=== PATIENT | female | born 1970 | race Caucasian/White ===

== ENCOUNTER → 2020-01-29 14:11 | Outpatient (BNVA) | payer OTHER, SELFPAY | PROVIDERS: PCP Family Medicine; Referring Provider Family Medicine; Visit Provider Internal Medicine Gastroenterology | DX: Z76.89 Persons encountering health services in other specified circumstances (principal) ==

== ENCOUNTER 2020-02-27 | Outpatient (REF) | payer OTHER, SELFPAY ==
[2020-02-28 12:25] LABS: Creatinine Urine 77.36 mg/dL; Microalbumin Urine < 5.0 mg/L
== END 2020-02-27 00:01 | disposition home or self-care (01) ==
LOC: HO.WFDLNP
PROVIDERS: Visit Provider Family Medicine
DX: F31.9 Bipolar disorder, unspecified (principal)
CPT/HCPCS: 82043

== ENCOUNTER 2020-04-09 10:31 | Day surgery (SDC) | payer OTHER, SELFPAY ==
--- NOTE | 2020-04-08 12:40 | HO.ANESPROP2 ---
Documented by User: Lorin Case 04/08/20 12:41 HPI - Anesthesia Eval Consult details Narrative: 49yo F for Colonoscopy PMFSH Past Medical History Medical History Diabetes 1.5, managed as type 2 Hx of coronary angiogram IBS (irritable colon syndrome) SILKE (obstructive sleep apnea) Screening for colon cancer Family History Family History Father HTN (hypertension) CVD (cardiovascular disease) Mother Hypercholesteremia Cancer Brother No problems noted. Surgical History Surgical History Hx of colonoscopy Hx of dilation and curettage Hx of tonsillectomy Hx of wisdom tooth extraction Social History Social History Alcohol intake: never Smoking Status: Never smoker Use of substances other than those prescribed or required for medical reasons: No Have you been hit, kicked, punched, or otherwise hurt by someone within the past year? If so, by whom?: No Advance Directives: No Advance Directives Information Provided: Yes Meds Allergies Allergy/AdvReac Type Severity Reaction Status Date / Time lactose [LACTOSE] AdvReac Intermediate GI DISTRESS Verified 04/09/20 10:57 codeine [CODEINE] AdvReac Mild NAUSEA, Verified 04/09/20 10:57 nausea and vomiting Home Medications Medication Instructions Recorded Confirmed Type cholecalciferol (vitamin D3) 50 50 mcg PO DAILY 01/06/20 01/29/20 History mcg (2,000 unit) tablet ergocalciferol (vitamin D2) 1,250 1,250 mcg PO QWEEK 01/06/20 01/06/20 History mcg (50,000 unit) capsule hydrochlorothiazide 25 mg tablet 25 mg PO QAM 01/06/20 01/29/20 History lisinopril 2.5 mg tablet 2.5 mg PO DAILY 01/06/20 01/29/20 History metformin 500 mg tablet 500 mg PO BID 01/06/20 01/29/20 History pioglitazone 30 mg tablet 30 mg PO DAILY 01/06/20 01/29/20 History simvastatin 20 mg tablet 20 mg PO BEDTIME 01/06/20 01/29/20 History flu vac qv 2019(18yr up)rc(PF) ml IM 02/27/20 History Exam Exam Date and Time: April 08, 2020 1240 Assessment and Plan Assessment Anesthesia Assessment: Chart Reviewed Documented by User: Hiwot Yanes 04/09/20 11:28 PMFSH Past Medical History Medical History Diabetes 1.5, managed as type 2 Hx of coronary angiogram IBS (irritable colon syndrome) SILKE (obstructive sleep apnea) Screening for colon cancer Family History Family History Father HTN (hypertension) CVD (cardiovascular disease) Mother Hypercholesteremia Cancer Brother No problems noted. Surgical History Surgical History Hx of colonoscopy Hx of dilation and curettage Hx of tonsillectomy Hx of wisdom tooth extraction Social History Social History Alcohol intake: never Smoking Status: Never smoker Use of substances other than those prescribed or required for medical reasons: No Have you been hit, kicked, punched, or otherwise hurt by someone within the past year? If so, by whom?: No Advance Directives: No Advance Directives Information Provided: Yes Meds Allergies Allergy/AdvReac Type Severity Reaction Status Date / Time lactose [LACTOSE] AdvReac Intermediate GI DISTRESS Verified 04/09/20 10:57 codeine [CODEINE] AdvReac Mild NAUSEA, Verified 04/09/20 10:57 nausea and vomiting Home Medications Medication Instructions Recorded Confirmed Type cholecalciferol (vitamin D3) 50 50 mcg PO DAILY 01/06/20 01/29/20 History mcg (2,000 unit) tablet ergocalciferol (vitamin D2) 1,250 1,250 mcg PO QWEEK 01/06/20 01/06/20 History mcg (50,000 unit) capsule hydrochlorothiazide 25 mg tablet 25 mg PO QAM 01/06/20 01/29/20 History lisinopril 2.5 mg tablet 2.5 mg PO DAILY 01/06/20 01/29/20 History metformin 500 mg tablet 500 mg PO BID 01/06/20 01/29/20 History pioglitazone 30 mg tablet 30 mg PO DAILY 01/06/20 01/29/20 History simvastatin 20 mg tablet 20 mg PO BEDTIME 01/06/20 01/29/20 History flu vac qv 2019(18yr up)rc(PF) ml IM 02/27/20 History Exam Height,Weight and Vital Signs: Vital Signs Temp Pulse Resp BP Pulse Ox 04/09/20 10:51 97 F 86 18 121/78 97 Pertinent Lab Results Pertinent Lab Results: Lab Results 04/09/20 Range/Units 10:52 POC Glucose 141 H (60-115) mg/dL Airway Mallampati Class: II TM Dist: >3cm Neck ROM: Full Loose/Missing/Broken Teeth: No Heart: RRR Lungs: CTAB Assessment and Plan Assessment Anesthesia Assessment: Anesthesia Plan Discussed and Chart Reviewed Final Anesthetic Review NPO: Yes ASA Class: III Final Preanesthetic Review: No Changes in Pt Med Stat, Meds/Allgs Chart Reviewed, Consent Obtained/Reviewed and Anes Risks/Benef Reviewed Patient Risk: Intermediate Procedure Risk: Low Assessment/Block/Sedation in SS: Assess/Block/Sedation-SS Anesthetic Plan Anesthetic Plan: MAC: Disposition: Standard PACU
[2020-04-09 10:51] VITALS: BP 121/78; PULSE 86; RESP 18; TEMP 36.1; O2SAT 97; BMI 37.1
[2020-04-09 10:56] LABS: Glucose, Whole Blood 141 mg/dL (60-115)
[2020-04-09] MEDS: Lactated Ringers 1,000 ML 100 ML IVCONT (11:07)
--- NOTE | 2020-04-09 11:34 | W.PM.OPN ---
Operative Note Operative Note Date of Service: 04/09/20 Narrative: Pre-op diagnosis: Colon cancer screening, IBS with intermittent diarrhea Post-op diagnosis: other (diverticulosis, hemorrhoids) Procedure: COLONOSCOPY TO CECUM WITH RANDOM BIOPSIES Consent: Indications for the procedure and potential complications of bleeding, perforation, reaction to medications and missed diagnosis were discussed with the patient and informed consent was obtained. Instrument: Olympus PCF H 190 L variable stiffness pediatric colonoscope Monitoring: Vital signs and clinical assessment, intermittent blood pressure monitoring, continuous EKG monitoring, Pulse oximetry and Carbon Dioxide monitoring were done throughout the procedure. Colon withdrawl time was 18 minutes. Procedure: The patient was placed in the left lateral decubitis position and pre-procedure medications were administered. After a digital rectal examination of the ano-rectum, the video colonoscope was inserted into the rectum and advanced through the colon to the cecum. The colonoscope was slowly withdrawn in a retrograde panoramic fashion and the colon mucosa was carefully examined including a retroflexed view of the rectum. Findings and interventions are described below. Procedure Difficulty: Without difficulty Findings: Terminal Ileum: Not evaluated - attempts to intubate the TI were unsuccessful Cecum: Normal Ascending Colon: Normal Transverse Colon: Normal Descending Colon: Normal Sigmoid Colon: Moderate diverticulosis Rectum: Normal Ano-rectum: Moderate internal hemorrhoids Colon preparation: Good Impression and Post Procedure Diagnosis: Colonoscopy Findings: No polyps were detected. Random biopsies were obtained from the colon. Moderate diverticulosis seen in the sigmoid colon Moderate hemorrhoids on retroflexed exam. Plan: Await pathology results Patient has an appointment on 04/17/20 in the GI Clinic with Tri Wright M.D.. Repeat Colonoscopy interval based on path results - in 3-5 years if polyps are adenomatous and 10 years if polyps are hyperplastic. 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 Right colon, left colon ) Condition: stable Disposition: PACU
--- NOTE | 2020-04-09 11:34 | MHC.SHP ---
Pre-Procedural Eval Section B Chief Complaint: Screening Details of Present Illness: Colon cancer screening, IBS with intermittent diarrhea FH of colon polyps (brother) Relevant Family History (Specify if Yes): Yes Relevant Social History: None Present Medications: see Short Stay Collaborative assessment Medical History: Significant History (Diabetes 1.5, managed as type 2 Hx of coronary angiogram IBS (irritable colon syndrome) SILKE (obstructive sleep apnea) Screening for colon cancer) History of Previous Operations: Relevant previous surgery/procedure and date(s) (Hx of colonoscopy Hx of dilation and curettage Hx of tonsillectomy Hx of wisdom tooth extraction) Allergies: Allergies Allergy/AdvReac Type Severity Reaction Status Date / Time lactose [LACTOSE] AdvReac Intermediate GI DISTRESS Verified 04/09/20 10:57 codeine [CODEINE] AdvReac Mild NAUSEA, Verified 04/09/20 10:57 nausea and vomiting Review of Systems Sugical H&P ROS: Negative: Constitution, Cardiovascular and Respiratory and Yes, Specify: Gastrointestinal (Intermittent diarrhea) Exam Surgical H&P Exam: Normal: Heart, Normal: Lungs, Normal: Extremities and Normal: Abdomen Plan Diagnosis/Plan: Unchanged I have reviewed the history and physical and performed a pertinent physical examination on my patient. No changes have occurred unless specified.
[2020-04-09 12:24] VITALS: BP 120/70; PULSE 88; RESP 16; TEMP 36.2; O2SAT 98
[2020-04-09 12:42] VITALS: BP 129/82; PULSE 77; RESP 16; TEMP 36.2; O2SAT 99
--- NOTE | 2020-04-09 13:24 | HO.POSTANES ---
Post Anesthesia Evaluation Post Anesthesia Evaluation Vital Signs: Vital Signs Temp Pulse Resp BP Pulse Ox 04/09/20 12:42 97.1 F 77 16 129/82 99 04/09/20 12:24 97.1 F 88 16 120/70 98 04/09/20 10:51 97 F 86 18 121/78 97 Anesthesia: Monitored Mental Status: Awake Pain Control: Satisfactory Nausea/Vomiting: None Hydration: Adequate Anesthesia-Related Issues: No Anes. Related Issues
== END 2020-04-09 13:27 | disposition home or self-care (01) ==
PROVIDERS: PCP Family Medicine; Visit Provider Internal Medicine Gastroenterology
PROC: 0DJD8ZZ Inspection of Lower Intestinal Tract, Via Natural or Artificial Opening Endoscopic (ICD-10-PCS; CPT 45378; principal; 2020-04-09 10:50)
DX: Z12.11 Encounter for screening for malignant neoplasm of colon (principal); Z83.71 Family history of colonic polyps; K57.30 Diverticulosis of large intestine without perforation or abscess without bleeding; K64.8 Other hemorrhoids; K58.0 Irritable bowel syndrome with diarrhea; E13.9 Other specified diabetes mellitus without complications; G47.33 Obstructive sleep apnea (adult) (pediatric); J45.909 Unspecified asthma, uncomplicated; Z79.84 Long term (current) use of oral hypoglycemic drugs; Z88.8 Allergy status to other drugs, medicaments and biological substances
CPT/HCPCS: 45380; 82947; 88305

== ENCOUNTER 2020-05-29 | Outpatient (REF) | payer OTHER, SELFPAY ==
[2020-05-30 14:38] LABS: Creatinine Urine 112.22 mg/dL; Microalbum/Creatinine Ratio Ur 4.4 ug/mg cr
== END 2020-05-29 00:01 | disposition home or self-care (01) ==
LOC: HO.LNP
PROVIDERS: Visit Provider Family Medicine
DX: Z00.00 Encounter for general adult medical examination without abnormal findings (principal); E13.9 Other specified diabetes mellitus without complications; Z11.59 Encounter for screening for other viral diseases; Z13.29 Encounter for screening for other suspected endocrine disorder; M54.9 Dorsalgia, unspecified
CPT/HCPCS: 82043

== ENCOUNTER 2020-05-29 13:21 | Outpatient (REF) | payer OTHER, SELFPAY ==
[2020-05-30 04:36] LABS: HBS Num1 272.91 mIU/mL (0-7.99); HBc Num1 0.08 S/CO (0.00-0.79); Hepatitis B Core Antibody Nonreactive (Nonreactive); ~HepC Num1 0.15 S/CO (0.00-0.79); ~Hepatitis B Surface Antibody REACTIVE (Nonreactive); ~Hepatitis C Antibody Nonreactive (Nonreactive)
[2020-05-30 04:39] LABS: HBsAGNum1 0.16 S/CO (0.00-0.99); Hepatitis B Surface Antigen Negative (Negative)
== END 2020-05-29 13:22 | disposition home or self-care (01) ==
LOC: HO.HMGCLDS 13:21
PROVIDERS: PCP Family Medicine; Visit Provider Family Medicine
DX: Z00.00 Encounter for general adult medical examination without abnormal findings (principal); E13.9 Other specified diabetes mellitus without complications; Z11.59 Encounter for screening for other viral diseases; Z13.220 Encounter for screening for lipoid disorders; Z13.29 Encounter for screening for other suspected endocrine disorder; M54.9 Dorsalgia, unspecified
CPT/HCPCS: 36415; 86704; 86706; 86803; 87340

== ENCOUNTER 2020-07-22 13:54 | Outpatient (REF) | payer OTHER, SELFPAY ==
--- NOTE | ~2020-07-22 | US_ITS ---
EXAMINATION: US ABDOMEN COMPLETE CLINICAL INFORMATION: Right upper quadrant pain. COMPARISON: None TECHNIQUE: Real-time imaging of the abdominal viscera. FINDINGS: PANCREAS: Normal. ABDOMINAL AORTA: The proximal, mid, and distal segments are normal in caliber. INFERIOR VENA CAVA: Visualized portions are normal. LIVER: The liver is normal in size. The liver contour is normal. There is increased liver echogenicity seen. No focal hepatic lesion. There is no intrahepatic biliary duct dilatation seen. GALLBLADDER: Normal. The gallbladder is physiologically distended without evidence of stones, sludge, polyps, wall thickening or pericholecystic fluid. COMMON BILE DUCT: Normal in caliber measuring 0.27 cm in diameter. RIGHT KIDNEY: Normal. No hydronephrosis. No renal calculi or focal parenchymal lesions. The kidney measures 11.9 cm in maximum dimension. LEFT KIDNEY: Normal. No hydronephrosis. No renal calculi or focal parenchymal lesions. The kidney measures 11.4 cm in maximum dimension. SPLEEN: Normal. The spleen measures 11.2 cm in maximum dimension. FREE FLUID: None. US/US abdomen complete IMPRESSION: Diffuse hepatic steatosis without any focal lesion. The rest of the abdominal ultrasound is unremarkable.
[2020-07-22 16:19] LABS: MANUAL DIFF FLAG NO
[2020-07-22 16:25] LABS: Basophils Percent Auto 0.3 % (0-2); Eosinophils Absolute Auto 0.2 X10*3/uL (0.0-0.4); Eosinophils Percent Auto 2.8 % (0-4); Hematocrit 40.3 % (37-47); Imm Gran Abs Auto 0.01 X10*3/uL (0.00-0.03); Imm Gran Pct Auto 0.2 % (0.0-0.4); Lymphocytes Absolute Auto 1.9 X10*3/uL (1.2-4.9); Mean Corpuscular HGB Conc 32.3 g/dl (31.0-35.0); Mean Corpuscular Hemoglobin 28.8 pg (27.0-33.0); Mean Corpuscular Volume 89.4 fL (80-98); Mean Platelet Volume 12.1 fL (9.4-12.3); Monocytes Absolute Auto 0.4 X10*3/uL (0.1-1.2); Monocytes Percent Auto 5.8 % (2-11); Neutrophils Percent Auto 61.9 % (45-73); Platelet Count 199 X10*3/uL (160-400); Red Blood Count 4.51 X10*6/uL (4.20-5.50); White Blood Count 6.4 X10*3/uL (4.8-10.8)
[2020-07-22 16:39] LABS: Glucose Urine UA NEG (NEG); Leukocyte Esterase Urine NEG (NEG); Nitrite Urine NEG (NEG); PH 7.5 (5.0-8.0); Urine Blood NEG (NEG); Urine Ketones NEG (NEG); Urine Protein NEG (NEG-TRACE)
[2020-07-22 16:44] LABS: Appearance Urine CLEAR; Color Urine YELLOW
[2020-07-22 16:52] LABS: Alanine Aminotransferase 20 U/L (0-31); Albumin Level 4.4 g/dL (3.5-5.0); Alkaline Phosphatase 73 U/L (39-117); Anion Gap 13 (12-20); Aspartate Amino Transferase 19 U/L (5-31); Bilirubin Total 0.8 mg/dL (0.0-1.0); Blood Urea Nitrogen 10 mg/dL (9-16); Calcium 9.2 mg/dL (8.4-10.2); Carbon Dioxide 30 mmol/L (22-29); Chloride 99 mmol/L (96-108); Estimated Glomerular Filt Rate > 60; Glucose Random 109 mg/dL (60-115); Potassium 3.8 mmol/L (3.3-5.1); Sodium 138 mmol/L (135-145); Total Protein 6.9 g/dL (6.5-8.0)
== END 2020-07-22 13:55 | disposition home or self-care (01) ==
LOC: HO.HMGCX 13:54
PROVIDERS: PCP Family Medicine; Visit Provider Family Medicine
DX: Z00.00 Encounter for general adult medical examination without abnormal findings (principal); R10.11 Right upper quadrant pain
CPT/HCPCS: 36415; 76700; 80053; 81003; 85025

== ENCOUNTER 2020-08-22 11:00 | Outpatient (RCR) | payer OTHER, SELFPAY ==
--- NOTE | 2020-07-05 09:52 | MHC.PT.EP ---
[facility] [place] Office [place] Office [place] Office [address] Erika Kamraa [address] [phone] F: [phone] F: [phone] F: [phone] F: [phone] Physical Therapy Plan of Care Date of Evaluation: 07/04/20 Date of Surgery: Diagnosis: acute mid-back pain. Assessment: Pt is a 50 y/o female referred to PT for eval and treat of acute mid-back pain who presents with signs and Sx consistent with thoracic dysfunction resulting in decreased tolerance for sitting for duration, performing desk/ computer work for duration, walking long distances, as well as performing HH chores secondary to decreased T spine posture, T spine hypomobility, increased L/ T spine tissue tension, decreased core strength, and pain. Pt is deemed an appropriate candidate to receive skilled PT in order to address her physical limitations to improve her functional ability. Frequency and Duration: The patient will be seen 2 x / wk x 4 weeks Short Term Goals: in 1 week: initiate HEP with evidence of compliance. In 2 weeks: improve baseline pain with activity to < 4/10, initial 6/10. Handbag Finisher Goals: In 4 weeks: I with home program. In 4 weeks: Pt will report able to perform desk/ computer work > 2 hours with managed Sx. Treatment Plan: Modalities to reduce pain, spasms and effusion. Manual therapy to restore motion and function. Therapeutic exercise to improve strength and flexibility. Neuromuscular re-education for posture and balance. Therapeutic activities to return to functional activities of daily living. Electronically signed by: Tyrell Rodriguez PT. Please sign and return to therapist. Thank you for your referral.
--- NOTE | 2020-08-22 12:41 | MHC.PT.DC ---
[facility] [place] Office [place] Office [place] Office [address] Alfreda Kamara [address] [phone] F: [phone] F: [phone] F: [phone] F: [phone] Physical Therapy Discharge Report Diagnosis: acute mid-back pain. Date of Surgery: Date of Evaluation: 07/04/20 Date of Discharge: Treatments to Date: 10 Cancellations to Date: 0 No Shows to Date: 0 Discharge Status: Achieved Goals Improved Function Independent with HEP Discharge Summary: Noa has been an active participant in her therapy in and out of the clinic, she has met all of her therapeutic goals, is improved of her ontiveros and functions and is in agreement with DC at this time. Electronically signed by: Tyrell Rodriguez PT. Please sign and return to therapist. Thank you for your referral.
== END 2020-08-22 12:46 | disposition home or self-care (01) ==
LOC: HO.PTCHIC 11:00
PROVIDERS: PCP Family Medicine; Visit Provider Family Medicine
DX: M54.9 Dorsalgia, unspecified (principal)
CPT/HCPCS: 97110; 97140; 97162

== ENCOUNTER 2020-10-28 12:20 | Outpatient (REF) | payer OTHER, SELFPAY ==
--- NOTE | ~2020-10-28 | MM_ITS ---
EXAMINATION: MM SCREENING DIGITAL BREAST TOMOSYNTHESIS, BILATERAL CLINICAL INFORMATION: Screening. Asymptomatic. Family history breast cancer, mother. The lifetime risk of breast cancer based on the Tyrer-Cuzick Model is 31%. COMPARISON: Mammography: 03/03/2019, 02/28/2018 TECHNIQUE: Digital breast tomosynthesis is performed in both the craniocaudal and mediolateral oblique views along with computer-aided detection (CAD). Synthesized 2D images are generated from the tomosynthesis. Additional exaggerated right CC view is provided. FINDINGS: The breasts are heterogeneously dense, which may obscure small masses (ACR BI-RADS breast composition Category c). Parenchymal pattern is similar to prior studies. There is no developing density or interval mass or architectural abnormality. Again, there are diffuse bilateral regional calcifications predominantly anterior outer breasts similar in number and distribution to prior studies. No significant changes. MM/MM tomosynthesis screening BI IMPRESSION: No mammographic evidence of malignancy. ASSESSMENT: BI-RADS 2: Benign RECOMMENDATION: 1. Routine annual mammography screening. 2. The lifetime risk of breast cancer based on the Tyrer-Cuzick Model is 31%. Additional annual adjunct screening with breast MRI may be of benefit in women with a risk score of 20% or greater. This patient's information was entered into a reminder system with a target due date for their next mammogram.
== END 2020-10-28 12:21 | disposition home or self-care (01) ==
LOC: HO.MAMMO 12:20
PROVIDERS: PCP Family Medicine; Visit Provider Family Medicine
DX: Z12.31 Encounter for screening mammogram for malignant neoplasm of breast (principal)
CPT/HCPCS: 77063; 77067

== ENCOUNTER → 2021-01-23 11:06 | Outpatient (BNVA) | payer OTHER, SELFPAY | PROVIDERS: PCP Family Medicine; Visit Provider Advanced Practice Midwife ==

== ENCOUNTER 2021-01-24 15:03 | Outpatient (REF) | payer OTHER, SELFPAY | END 2021-01-24 15:04 | disposition home or self-care (01) | LOC: HO.HMGCLDS 15:03 | PROVIDERS: PCP Family Medicine; Visit Provider Advanced Practice Midwife | DX: N91.2 Amenorrhea, unspecified (principal); R23.2 Flushing | CPT/HCPCS: 36415; 83001 ==

== ENCOUNTER → 2021-02-06 11:26 | Outpatient (BNVA) | payer OTHER, SELFPAY | PROVIDERS: PCP Family Medicine; Visit Provider Advanced Practice Midwife ==

== ENCOUNTER 2021-02-10 08:25 | Outpatient (REF) | payer OTHER, SELFPAY ==
[2021-02-10 09:49] LABS: Estimated Average Glucose 126 mg/dL
[2021-02-10 10:13] LABS: Alanine Aminotransferase 18 U/L (0-31); Albumin Level 4.3 g/dL (3.5-5.0); Alkaline Phosphatase 63 U/L (39-117); Anion Gap 13 (12-20); Aspartate Amino Transferase 15 U/L (5-31); Bilirubin Total 0.5 mg/dL (0.0-1.0); Blood Urea Nitrogen 10 mg/dL (9-16); Calcium 9.1 mg/dL (8.4-10.2); Carbon Dioxide 28 mmol/L (22-29); Chloride 100 mmol/L (96-108); Cholesterol 145 mg/dL; Estimated Glomerular Filt Rate > 60; Glucose Fasting 120 mg/dL (60-99); HDL Cholesterol 34 mg/dL; LDL Cholesterol Calculated 84 mg/dl; Potassium 3.7 mmol/L (3.3-5.1); Sodium 137 mmol/L (135-145); Total Protein 6.6 g/dL (6.5-8.0); Triglycerides 137 mg/dL
[2021-02-10 10:25] LABS: TSH reflex Free T4 1.65 uIU/mL (0.32-4.0)
== END 2021-02-10 08:26 | disposition home or self-care (01) ==
LOC: HO.LAB 08:25
PROVIDERS: PCP Family Medicine; Visit Provider Family Medicine
DX: Z00.00 Encounter for general adult medical examination without abnormal findings (principal); E13.9 Other specified diabetes mellitus without complications
CPT/HCPCS: 36415; 80053; 80061; 83036; 84443

== ENCOUNTER 2021-02-11 09:53 | Outpatient (REF) | payer OTHER, SELFPAY ==
[2021-02-12 10:02] LABS: BV Int Neg Control Negative (Negative); BV Int Pos Control Positive (Positive)
[2021-02-13 21:42] LABS: HPV mRNA E6/E7 rflx Not Detected (Not Detected)
== END 2021-02-11 09:54 | disposition home or self-care (01) ==
LOC: HO.LAB 09:53
PROVIDERS: PCP Family Medicine; Visit Provider Advanced Practice Midwife
DX: Z01.419 Encounter for gynecological examination (general) (routine) without abnormal findings (principal); N89.8 Other specified noninflammatory disorders of vagina; N90.89 Other specified noninflammatory disorders of vulva and perineum; Z30.432 Encounter for removal of intrauterine contraceptive device
CPT/HCPCS: 58301; 87480; 87510; 87624; 87660; 88142

== ENCOUNTER 2021-04-07 07:00 | Outpatient (RCR) | payer OTHER, SELFPAY ==
--- NOTE | 2021-03-17 07:57 | MHC.PT.EP ---
[facility] [place] Office [place] Office [place] Office [address] Alfreda Kamara [address] [phone] F: [phone] F: [phone] F: [phone] F: [phone] Physical Therapy Plan of Care Date of Evaluation: Date of Surgery: Diagnosis: abdominal wall/ muscle pain Assessment: 50 y/o F referred to PT with abdominal wall pain. She reports this abdominal pain has been present for one month following prolonged period of increased stress. She also notes low back pain that is worse after prolonged sitting or standing. Examination shows decreased abdominal/glut strength B, 8-finger diastasis, poor pressure management of abdominal muscles, decreased quad/hip flexor length, and impaired postural awareness. Recommend PT 2x/week for 4 weeks to address impairments, implement HEP, and optimize functional mobility. Also recommended pt f/u with PCP regarding constant, unchanging pain in abdomen (along linea alba) for further management and pt reports she will schedule an appointment. Frequency and Duration: The patient will be seen 2x/week for 4 weeks Short Term Goals: 2 weeks 1. I with HEP 2. I with use of lumbar roll in sitting 3. 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 I with HEP and self management of sx 2. Pt will be able to stand with LBP < 3/10 after sitting > 30min 3. Improve B LE strength and core by one MMT grade Treatment Plan: Modalities to reduce pain, spasms and effusion. Manual therapy to restore motion and function. Therapeutic exercise to improve strength and flexibility. Neuromuscular re-education for posture and balance. Therapeutic activities to return to functional activities of daily living. Electronically signed by: Silvana Bermudez PT Please sign and return to therapist. Thank you for your referral.
--- NOTE | 2021-04-25 10:18 | MHC.PT.DC ---
[facility] [place] Office [place] Office [place] Office [address] Alfreda Kamara 140 [facility] [phone] F: [phone] F: [phone] F: [phone] F: [phone] Physical Therapy Discharge Report Diagnosis: abdominal wall/ muscle pain Date of Surgery: Date of Evaluation: 03/17/21 Date of Discharge: 04/25/21 Treatments to Date: 5 Cancellations to Date: 0 No Shows to Date: 0 Discharge Status: Patient Elected to Stop Discharge Summary: Pt self discharge reporting upcoming lumbar spine MRI. Electronically signed by: Silvana Bermudez PT Please sign and return to therapist. Thank you for your referral.
== END 2021-04-25 10:18 | disposition home or self-care (01) ==
LOC: HO.PTCHIC 07:00
PROVIDERS: PCP Family Medicine; Visit Provider Family Medicine
DX: S39.011D Strain of muscle, fascia and tendon of abdomen, subsequent encounter (principal)
CPT/HCPCS: 97110; 97112; 97161

== ENCOUNTER 2021-04-22 12:05 | Outpatient (REF) | payer OTHER, SELFPAY ==
[2021-04-22 14:23] LABS: Anion Gap 14 (12-20); Blood Urea Nitrogen 8 mg/dL (9-16); Calcium 10.1 mg/dL (8.4-10.2); Carbon Dioxide 31 mmol/L (22-29); Chloride 93 mmol/L (96-108); Estimated Glomerular Filt Rate > 60; Glucose Random 101 mg/dL (60-115); Potassium 3.6 mmol/L (3.3-5.1); Sodium 134 mmol/L (135-145)
== END 2021-04-22 12:06 | disposition home or self-care (01) ==
LOC: HO.WFDLDS 12:05
PROVIDERS: Visit Provider Hospitalist
DX: E87.6 Hypokalemia (principal)
CPT/HCPCS: 36415; 80048

== ENCOUNTER 2021-04-30 11:13 | Outpatient (REF) | payer OTHER, SELFPAY ==
--- NOTE | ~2021-04-30 | XR_ITS ---
EXAMINATION: XR lumbar spine 2-3V CLINICAL INFORMATION: Reason for Exam M54.50 - Low back pain, unspecified COMPARISON: None TECHNIQUE: 3 views of the lumbar spine XR/XR lumbar spine 2-3V FINDINGS/IMPRESSION: Transitional anatomy with a broad-based left L5 transverse process pseudoarticulating with the sacrum, which can be a source of pain. Vertebral body heights are maintained. Minimal grade 1 anterolisthesis of L5 on L5. Mild degenerative disc disease at L4-L5 and L5-S1 with loss of disc space height and facet arthropathy. Sclerosis is noted along the left greater than right sacroiliac joints which may reflect sequelae of degenerative change or sacroiliitis. Paravertebral soft tissues are unremarkable.
== END 2021-04-30 11:14 | disposition home or self-care (01) ==
LOC: HO.XRAY 11:13
PROVIDERS: PCP Family Medicine; Visit Provider Hospitalist
DX: M54.50 Low back pain, unspecified (principal); R20.0 Anesthesia of skin; R20.2 Paresthesia of skin
CPT/HCPCS: 72100

== ENCOUNTER 2021-05-24 09:18 | Outpatient (REF) | payer OTHER, SELFPAY ==
[2021-05-24 10:59] LABS: MANUAL DIFF FLAG NO
[2021-05-24 11:09] LABS: Basophils Percent Auto 0.6 % (0-2); Eosinophils Absolute Auto 0.2 X10*3/uL (0.0-0.4); Hematocrit 36.4 % (37.0-47.0); Hemoglobin 11.9 g/dl (12.0-16.0); Imm Gran Abs Auto 0.02 X10*3/uL (0.00-0.03); Imm Gran Pct Auto 0.3 % (0.0-0.4); Lymphocytes Absolute Auto 1.8 X10*3/uL (1.2-4.9); Lymphocytes Percent Auto 27.6 % (20-40); Mean Corpuscular HGB Conc 32.7 g/dl (31.0-35.0); Mean Corpuscular Volume 88.6 fL (80.0-98.0); Mean Platelet Volume 11.5 fL (9.4-12.3); Monocytes Absolute Auto 0.4 X10*3/uL (0.1-1.2); Monocytes Percent Auto 6.2 % (2-11); Neutrophils Absolute Auto 4.1 x10*3/uL (2.0-8.3); Neutrophils Percent Auto 62.3 % (45-73); Platelet Count 205 X10*3/uL (160-400); Red Blood Count 4.11 X10*6/uL (4.20-5.50); Red Cell Distribution Width 13.2 % (11.0-16.0); White Blood Count 6.6 X10*3/uL (4.8-10.8)
[2021-05-24 11:21] LABS: Appearance Urine CLEAR; Color Urine YELLOW; Glucose Urine UA NEG (NEG); Leukocyte Esterase Urine NEG (NEG); Nitrite Urine NEG (NEG); Urine Blood NEG (NEG); Urine Ketones NEG (NEG); Urine Protein NEG (NEG-TRACE)
[2021-05-24 11:31] LABS: Alanine Aminotransferase 19 U/L (0-31); Albumin Level 4.2 g/dL (3.5-5.0); Alkaline Phosphatase 63 U/L (39-117); Anion Gap 10 (12-20); Aspartate Amino Transferase 17 U/L (5-31); Bilirubin Total 0.5 mg/dL (0.0-1.0); Blood Urea Nitrogen 10 mg/dL (9-16); Calcium 8.9 mg/dL (8.4-10.2); Carbon Dioxide 30 mmol/L (22-29); Chloride 91 mmol/L (96-108); Cholesterol 159 mg/dL; Estimated Glomerular Filt Rate > 60; Glucose Fasting 99 mg/dL (60-99); HDL Cholesterol 35 mg/dL; LDL Cholesterol Calculated 99 mg/dl; Potassium 3.8 mmol/L (3.3-5.1); Sodium 127 mmol/L (135-145); Total Protein 6.5 g/dL (6.5-8.0); Triglycerides 126 mg/dL
[2021-05-24 11:56] LABS: TSH reflex Free T4 0.73 uIU/mL (0.32-4.0)
[2021-05-26 09:46] LABS: Folate 14.8 ng/mL (> or = 4.0); Vitamin B12 406 pg/mL (200-900)
== END 2021-05-24 09:19 | disposition home or self-care (01) ==
LOC: HO.HMGCLDS 09:18
PROVIDERS: Visit Provider Family Medicine
DX: Z00.00 Encounter for general adult medical examination without abnormal findings (principal); E53.8 Deficiency of other specified B group vitamins
CPT/HCPCS: 36415; 80053; 80061; 81003; 82607; 82746; 84443; 85025

== ENCOUNTER 2021-06-20 08:24 | Outpatient (REF) | payer OTHER, SELFPAY ==
[2021-06-20 11:27] LABS: MANUAL DIFF FLAG NO
[2021-06-20 11:33] LABS: Basophils Percent Auto 0.8 % (0-2); Eosinophils Absolute Auto 0.2 X10*3/uL (0.0-0.4); Eosinophils Percent Auto 3.1 % (0-4); Hematocrit 35.1 % (37.0-47.0); Hemoglobin 11.2 g/dl (12.0-16.0); Imm Gran Abs Auto 0.01 X10*3/uL (0.00-0.03); Imm Gran Pct Auto 0.2 % (0.0-0.4); Lymphocytes Absolute Auto 2.2 X10*3/uL (1.2-4.9); Lymphocytes Percent Auto 43.2 % (20-40); Mean Corpuscular HGB Conc 31.9 g/dl (31.0-35.0); Mean Corpuscular Hemoglobin 28.6 pg (27.0-33.0); Mean Corpuscular Volume 89.8 fL (80.0-98.0); Mean Platelet Volume 10.9 fL (9.4-12.3); Monocytes Absolute Auto 0.4 X10*3/uL (0.1-1.2); Monocytes Percent Auto 6.9 % (2-11); Neutrophils Absolute Auto 2.4 x10*3/uL (2.0-8.3); Neutrophils Percent Auto 45.8 % (45-73); Platelet Count 187 X10*3/uL (160-400); Red Blood Count 3.91 X10*6/uL (4.20-5.50); Red Cell Distribution Width 13.1 % (11.0-16.0); White Blood Count 5.2 X10*3/uL (4.8-10.8)
[2021-06-20 12:09] LABS: Alanine Aminotransferase 19 U/L (0-31); Albumin Level 3.9 g/dL (3.5-5.0); Alkaline Phosphatase 61 U/L (39-117); Anion Gap 11 (12-20); Aspartate Amino Transferase 12 U/L (5-31); Bilirubin Total 0.2 mg/dL (0.0-1.0); Blood Urea Nitrogen 8 mg/dL (9-16); Calcium 8.9 mg/dL (8.4-10.2); Carbon Dioxide 31 mmol/L (22-29); Chloride 93 mmol/L (96-108); Cholesterol 166 mg/dL; Estimated Glomerular Filt Rate > 60; Glucose Fasting 114 mg/dL (60-99); HDL Cholesterol 29 mg/dL; LDL Cholesterol Calculated 87 mg/dl; Potassium 3.6 mmol/L (3.3-5.1); Rheumatoid Factor < 15.0 IU/mL (<15.0); Sodium 131 mmol/L (135-145); Triglycerides 251 mg/dL
[2021-06-20 12:16] LABS: Erythrocyte Sedimentation Rate 7 MM/HR (0-20)
[2021-06-23 14:01] LABS: CRP High Sensitivity 0.9 mg/L
[2021-06-24 09:31] LABS: Anti Nuclear Antibody Screen NEGATIVE (NEGATIVE)
== END 2021-06-20 08:25 | disposition home or self-care (01) ==
LOC: HO.HMGCLDS 08:24
PROVIDERS: Visit Provider Family Medicine
DX: Z00.00 Encounter for general adult medical examination without abnormal findings (principal); D64.9 Anemia, unspecified; M25.649 Stiffness of unspecified hand, not elsewhere classified; E87.1 Hypo-osmolality and hyponatremia; E13.9 Other specified diabetes mellitus without complications
CPT/HCPCS: 36415; 80053; 80061; 85025; 85652; 86038; 86039; 86141; 86431

== ENCOUNTER 2021-06-24 15:29 | Outpatient (REF) | payer OTHER, SELFPAY ==
[2021-06-25 08:43] LABS: BV Int Neg Control Negative (Negative); BV Int Pos Control Positive (Positive)
[2021-06-25 09:25] LABS: CT PCR NOT DETECTED (Not Detect.); NG PCR NOT DETECTED (Not Detect.)
== END 2021-06-24 15:30 | disposition home or self-care (01) ==
LOC: HO.LAB 15:29
PROVIDERS: PCP Family Medicine; Visit Provider Obstetrics & Gynecology
DX: N89.8 Other specified noninflammatory disorders of vagina (principal); B37.3 Candidiasis of vulva and vagina
CPT/HCPCS: 87480; 87491; 87510; 87591; 87660

== ENCOUNTER 2021-07-08 13:42 | Outpatient (REF) | payer OTHER, SELFPAY ==
--- NOTE | ~2021-07-08 | XR_ITS ---
EXAMINATION: XR HAND, BILATERAL XR WRIST, BILATERAL CLINICAL INFORMATION: Stiffness. COMPARISON: None TECHNIQUE: 4 views of each hand and wrist. FINDINGS: There is periarticular osteopenia. Bone alignment is normal. No fracture or dislocation is seen. The joint spaces are normal. Soft tissues are normal. XR/XR hand wrist RT IMPRESSION: Periarticular osteopenia. Otherwise, unremarkable exam.
--- NOTE | ~2021-07-08 | XR_ITS ---
EXAMINATION: XR HAND, BILATERAL XR WRIST, BILATERAL CLINICAL INFORMATION: Stiffness. COMPARISON: None TECHNIQUE: 4 views of each hand and wrist. FINDINGS: There is periarticular osteopenia. Bone alignment is normal. No fracture or dislocation is seen. The joint spaces are normal. Soft tissues are normal. XR/XR hand wrist LT IMPRESSION: Periarticular osteopenia. Otherwise, unremarkable exam.
[2021-07-08 13:54] LABS: MANUAL DIFF FLAG NO
[2021-07-08 14:58] LABS: Basophils Absolute Auto 0.1 X10*3/uL (0.0-0.2); Basophils Percent Auto 0.8 % (0-2); Eosinophils Absolute Auto 0.4 X10*3/uL (0.0-0.4); Eosinophils Percent Auto 6.4 % (0-4); Hematocrit 40.1 % (37.0-47.0); Hemoglobin 12.6 g/dl (12.0-16.0); Imm Gran Abs Auto 0.02 X10*3/uL (0.00-0.03); Imm Gran Pct Auto 0.3 % (0.0-0.4); Immature Retic Fraction 8.2 % (3.0-15.9); Lymphocytes Absolute Auto 1.5 X10*3/uL (1.2-4.9); Lymphocytes Percent Auto 25.4 % (20-40); Mean Corpuscular HGB Conc 31.4 g/dl (31.0-35.0); Mean Corpuscular Hemoglobin 28.4 pg (27.0-33.0); Mean Corpuscular Volume 90.5 fL (80.0-98.0); Mean Platelet Volume 10.5 fL (9.4-12.3); Monocytes Absolute Auto 0.3 X10*3/uL (0.1-1.2); Monocytes Percent Auto 5.8 % (2-11); Neutrophils Absolute Auto 3.6 x10*3/uL (2.0-8.3); Neutrophils Percent Auto 61.3 % (45-73); Platelet Count 225 X10*3/uL (160-400); Red Blood Count 4.43 X10*6/uL (4.20-5.50); Red Cell Distribution Width 13.3 % (11.0-16.0); Retic HGB Equivalent 33.6 pg (30.0-35.0); Reticulocyte Percent 1.8 % (0.5-1.8); Reticulocytes Absolute 0.081 X10*6/uL (0.026-0.095); White Blood Count 5.9 X10*3/uL (4.8-10.8)
[2021-07-08 15:18] LABS: Iron 108 mcg/dL (30-160); Percent Iron Saturation 31 % (15-50); Total Iron Binding Capacity 353 mcg/dL (228-428); Unsaturated Iron Binding 245 ug/dL
[2021-07-08 15:39] LABS: Ferritin 79 ng/mL (10-250)
[2021-07-08 15:54] LABS: Folate 12.8 ng/mL (> or = 4.0); Vitamin B12 388 pg/mL (200-900)
== END 2021-07-08 13:43 | disposition home or self-care (01) ==
LOC: HO.LAB 13:42
PROVIDERS: PCP Family Medicine; Visit Provider Family Medicine
DX: Z00.00 Encounter for general adult medical examination without abnormal findings (principal); D64.9 Anemia, unspecified; E53.8 Deficiency of other specified B group vitamins; M25.642 Stiffness of left hand, not elsewhere classified; M25.641 Stiffness of right hand, not elsewhere classified
CPT/HCPCS: 36415; 73110; 73130; 82607; 82728; 82746; 83540; 85025; 85045

== ENCOUNTER 2021-07-14 07:57 | Outpatient (REF) | payer OTHER, SELFPAY | END 2021-07-14 07:58 | disposition home or self-care (01) | LOC: HO.LAB 07:57 | PROVIDERS: PCP Family Medicine; Visit Provider Obstetrics & Gynecology | DX: N90.89 Other specified noninflammatory disorders of vulva and perineum (principal) | CPT/HCPCS: 56605; 88305; 88312 ==

== ENCOUNTER → 2021-07-29 08:00 | Outpatient (BNVA) | payer OTHER, SELFPAY | PROVIDERS: PCP Family Medicine; Visit Provider Obstetrics & Gynecology | DX: Z13.89 Encounter for screening for other disorder (principal) ==

== ENCOUNTER 2021-09-05 08:00 | Outpatient (REF) | payer OTHER, SELFPAY ==
--- NOTE | 2021-09-05 09:30 | MHC.AU.MED ---
Medical Clearance for Hearing Instrumentation Date: 09/05/21 Patient Name: Noa Hernandez Date of : 1970 Primary Care Provider: Referring Provider: Efrem Taylor MD We have seen your patient on 09/05/21 and have determined that they are a candidate for amplification (See accompanying report). Specifically, they would benefit from: Hearing aid use in both ears There is a statute that addresses Medical Evaluation Requirements prior to fitting a patient with a hearing aid. According to [place] statute 265 CMR:6.03(1), (a) General. Except as provided in 265 CMR 6.03(1)(b), a leverman shall not sell a hearing aid unless the prospective user has presented to the leverman a written statement signed by a licensed physician that states that the patient's hearing loss has been medically evaluated and the patient may be considered a candidate for a hearing aid. The medical evaluation must have taken place within the preceding six months. Please note: Due to the [place] Statute referenced above, we cannot accept a signature other than that of a licensed physician. MARKER MACHINE ATTENDANT and PA signatures cannot be accepted. I am in agreement with the above recommendation. There is no medical contraindication for hearing instrumentation. Physician Signature Date Physician Name (Printed)
--- NOTE | 2021-09-05 09:39 | MHC.AU.HAS ---
Hearing Aid Evaluation Date of Visit: 09/05/21 Paratransit Operator Used: Not Applicable Historical Information: Description of Hearing: Normal to borderline normal hearing levels at 250-1000 Hz, sloping to a moderate high frequency sensorineural hearing loss bilaterally Current personal amplification information, if applicable: NONE Summary: Noa is experiencing increased difficulty understanding speech, particularly when in round table group meetings at work, when background noise is present, when watching television and someone speaks to her. Binaural rechargeable hearing aids are recommended to facilitate communication and ease of use. Hearing Aid Prescription: Based on the individual?s shared listening needs, communication environments, dexterity, desire for connectivity, and personal preferences, the following prescription for amplification has been made: Right ear: Top Waddy: Phonak Model: Audeo P 70-R Battery Size: Rechargeable Color: Grphite Mckoy Railcar Foreman: #1 Medium Type of Dome: Open Left ear:Left ear prescription to be same as Right Hearing Aid above: Top Waddy: Phonak Model: Audeo P 70-R Battery Size: Rechargeable Color: Graphite Mckoy Railcar Foreman: #1 Medium Type of Dome: Open Plan of Care: Patient wishes to purchase hearing aids as prescribed Action Taken/Action Needed: Medical Clearance to be requested from PCP/ENT Hearing Instrument Fitting to be scheduled when materials arrive Primary Diagnosis: H90.3 Bilateral Sensorineural Hearing Loss Signature:Provider: Orquidea Toledo, CCC-A
--- NOTE | 2021-09-05 11:04 | MHC.AU.ANO ---
Adult Audiological Evaluation Date of Visit: 09/05/21 Physiognomist Used: Not Applicable Reason for Appointment: Noa was referred for an audiologic evaluation due to increasing hearing difficulties. She reports trouble understanding speech particularly when in small group meetings at work, when background noise is present, and when watching television and someone speaks to her. She also notes her family thinks she speaks very loudly. Does patient feel they have a hearing loss?: Yes If Yes, Which Ear?: Both Ears When Was Hearing Difficulty First Noticed?: Many years ago Has hearing been tested previously?: Yes Previous Hearing Test Results: 10+ years ago when living in [place]. Results are not available for review. 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 Medical History: Medical History: Diabetes, Headache, High Blood Pressure, Migraines, Seizure Disorder, Fibromyalgia, Asthma, Seasonal Allergies, High Cholesterol, Bipolar Disorder Allergies: Codeine, Lactose Intolerant Medication List: Pioglitazone, Metformin, Hydrochlorothiazide, Lisinopril, Famciclovir, Venlofaxine, Simvastatin, Pulmicort, Vitamin D3, Iron, [place] 3, Nasacort, Metronidazole, Lidocaine Patch, Meloxicam, Cyclobenzaprine Otoscopy: Right Ear: Small amount of non-occluding cerumen Left Ear: Unremarkable Tympanometry: Tympanometry performed due to: To assess integrity of the middle ear system Right Ear: Normal Middle Ear System (Type A) Left Ear: Normal Middle Ear System (Type A) Otoacoustic Emissions Frequency Range Used: 1.6-8 kHz Right Ear Results: Present 1600 and 2000 Hz. Absent 1202-4587 Hz Analysis: Present emissions suggest normal cochlear function Reduced/Absent emissions suggest cochlear dysfunction Results are consistent with degree and configuration of hearing loss Left Ear Results: Present 1600 and 2000 Hz. Absent 1948-0926 Hz Analysis: Present emissions suggest normal cochlear function Reduced/Absent emissions suggest cochlear dysfunction Results are consistent with degree and configuration of hearing loss Hearing Evaluation: Transducer(s) Used: Insert Earphones Bone Conduction Method: Conventional Audiometry Stimuli Used: Pure Tones Right Ear: Description of Hearing: Borderline normal hearing thresholds 250-1000 Hz, sloping to a moderate high frequency sensorineural hearing loss. Left Ear: Description of Hearing: Normal hearing threshold at 250 Hz, sloping to a moderate high frequency sensorineural hearing loss. Speech Recognition Threshold (SRT): Method Used: Monitored Live Voice Stimuli Used: Spondee Words Right Ear: 20 dB HL Left Ear: 20 dB HL Word Discrimination: Method: Recorded Lists Word Lists Used: NU-6 Right Ear: 100% at 60 dB HL Left Ear: 100% at 60 dB HL QuickSIN: Binaural Quick SIN Test: 0 dB SNR Loss This score falls within the normal range suggesting Noa does not experience any more difficulty than expected understanding speech with increasing levels of background noise in this controlled test environment. Real world listening situations will likely be more difficult. Interpretation of Results: This moderate high frequency bilateral hearing loss causes difficulty hearing high frequency consonant sounds of speech which help with differentiating similar sounding words, particularly when background noise is present or a person is speaking from a distance. Noa's medical conditions and medications may also impact understanding speech and/or slow processing speed. Recommendations: Trial with binaural amplification is recommended. Medical clearance from a physician is required before fitting. Audiological re-evaluation in one year. Will send a reminder card. Diagnosis: Primary Diagnosis: H90.3 Bilateral Sensorineural Hearing Loss Services Performed: Comprehensive Audiological Evaluation (CPT 71238) Diagnostic Otoacoustic Emissions (CPT 91341, 26+TC) Tympanometry (CPT 15607) Signature: Provider: Orquidea Toledo, [facility]
== END 2021-09-05 08:01 | disposition home or self-care (01) ==
LOC: HO.SH 08:00
PROVIDERS: Visit Provider Family Medicine
DX: H90.3 Sensorineural hearing loss, bilateral (principal)
CPT/HCPCS: 92557; 92567; 92588; 92591

== ENCOUNTER 2021-11-27 08:00 | Outpatient (RCR) | payer OTHER, SELFPAY ==
--- NOTE | 2021-12-25 09:44 | MHC.OT.DC ---
[address] [phone] F: [phone] Occupational Therapy Discharge Note Provider: Efrem Taylor Diagnosis: Right hand pain Date of Surgery: Date of Evaluation: 11/11/21 Date of Discharge: 12/25/21 Treatments to Date: 2 Cancellations to Date: 2 No Shows to Date: 1 Discharge Status: Improved Function Independent with HEP Discharge Summary: Lateral elbow pain improving Pt with a practice of Thia Chi and a Wednesday workout... Recommended daily practice Pt indep with tendon glides and yellow putty gripping for warm up ex at home Independent with green theraband scap add and eccentric wrist ex Pt educated on a HEP, Ergonomic desk changes,visual breaks and breathing breaks at work. Electronically Signed By: Judit Tobin OT CHT CLT Reviewed/agree with student documentation: N/A Therapist: Please Sign and return to therapist, thank you for your referral.
== END 2021-12-25 09:45 | disposition home or self-care (01) ==
LOC: HO.OT 08:00
PROVIDERS: PCP Family Medicine; Visit Provider Family Medicine
DX: M79.641 Pain in right hand (principal)
CPT/HCPCS: 97110; 97140; 97165; 97535

== ENCOUNTER 2021-12-13 10:31 | Outpatient (REF) | payer OTHER, SELFPAY ==
--- NOTE | ~2021-12-13 | MM_ITS ---
EXAMINATION: MM SCREENING DIGITAL BREAST TOMOSYNTHESIS, BILATERAL CLINICAL INFORMATION: Screening. Asymptomatic. Family history breast cancer, mother. The lifetime risk of breast cancer based on the Tyrer-Cuzick Model is 30%. COMPARISON: Mammography: 10/28/2020, 03/03/2019, 02/28/2018 TECHNIQUE: Digital breast tomosynthesis is performed in both the craniocaudal and mediolateral oblique views along with computer-aided detection (CAD). Synthesized 2D images are generated from the tomosynthesis. Additional bilateral exaggerated CC views are provided. FINDINGS: The breasts are heterogeneously dense, which may obscure small masses (ACR BI-RADS breast composition Category c). There is no interval mass or architectural abnormality. Parenchymal pattern is similar to prior studies. Again, there are bilateral scattered round calcifications in both breasts. The axilla are unremarkable. The skin contours are smooth. MM/MM tomosynthesis screening BI IMPRESSION: No mammographic evidence of malignancy. ASSESSMENT: BI-RADS 2: Benign RECOMMENDATION: Routine annual mammography screening. This patient's information was entered into a reminder system with a target due date for their next mammogram.
== END 2021-12-13 10:32 | disposition home or self-care (01) ==
LOC: HO.MAMMO 10:31
PROVIDERS: PCP Family Medicine; Visit Provider Family Medicine
DX: Z12.31 Encounter for screening mammogram for malignant neoplasm of breast (principal)
CPT/HCPCS: 77063; 77067

== ENCOUNTER 2022-01-16 09:10 | Outpatient (REF) | payer OTHER, SELFPAY | END 2022-01-16 09:11 | disposition home or self-care (01) | LOC: HO.HAP 09:10 | PROVIDERS: Visit Provider Family Medicine | DX: Z46.1 Encounter for fitting and adjustment of hearing aid (principal); H90.3 Sensorineural hearing loss, bilateral | CPT/HCPCS: V5011; V5020; V5160; V5261 ==

== ENCOUNTER 2022-02-24 09:11 | Outpatient (REF) | payer OTHER, SELFPAY ==
--- NOTE | 2022-02-24 16:36 | MHC.AU.HFU ---
Hearing Instrument Follow-Up- Binaural Date of Visit: 02/24/22 Right Ear: Hand Stemmer: Phonak Audeo M70-R #[id number] Graphite Mckoy Repair Warranty: 01/31/2025 Loss and Damage Warranty: 01/31/2025 Service Plan: 01/16/2023 Battery Size: Rechargeable Color: Graphite Mckoy Food Checker: #1 Medium Type of Dome: Open Type of Mold: Small Open Dome Type of Wax Guard: CeruShield Dispensed By: [facility] Date of Fittin01/16/2022 Left Ear: Hand Stemmer: Phonak Audeo M70-R #[id number] Graphite Mckoy Repair Warranty: 01/31/2025 Loss and Damage Warranty: 01/31/2025 Service Plan: 01/16/2022 Battery Size: Rechargeable Color: Graphite Mckoy Food Checker: #1 Medium Type of Dome: Open Type of Mold: Small Open Dome Type of Wax Guard: CeruShield Dispensed By: [facility] Date of Fittin01/16/2022 Follow-Up Summary: The patient arrived today for a hearing aid check following her initial fitting. She states she is generally hearing well with her hearing aids, but finds that louder impact sounds like trash or her parrot are too loud. She also finds her voice echoes. She primarily wears her hearing aids at work and tends to remove them at home and on the weekends. Data logging reveals ~3.8 hours/day of use. She was counseled on the importance of consistent hearing aid use. We discussed use of the volume control, rather than removing the hearing aids. We did decrease overall loud gain by 3 dB bilaterally. We practiced changing the domes and wax guards together. 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 We are in the process of exchanging the patient's Audeo M70-R hearing aids with Audeo P70-R hearing aids. The patient will be contacted once they arrive for an exchange. No other questions or concerns reported. Diagnosis Code(s): Primary Diagnosis: H90.3 Bilateral Sensorineural Hearing Loss Signature: Provider: Orquidea Khan, [facility]
== END 2022-02-24 09:12 | disposition home or self-care (01) ==
LOC: HO.HAP 09:11
PROVIDERS: Visit Provider Family Medicine
DX: Z13.89 Encounter for screening for other disorder (principal)

== ENCOUNTER 2022-03-19 15:55 | Outpatient (REF) | payer OTHER, SELFPAY ==
--- NOTE | ~2022-03-19 | US_ITS ---
EXAMINATION: US PELVIS COMPLETE CLINICAL INFORMATION: Postmenopausal bleeding COMPARISON: Pelvic ultrasound 12/29/2017 TECHNIQUE: Transabdominal and transvaginal imaging was performed. FINDINGS: The uterus is of normal size measuring 6.4 x 2.3 x 4.8 cm. The endometrium is identified measuring 0.6 cm. A 2.2 cm submucosal myoma in the anterior body demonstrates an approximately 50% submucosal component. A 0.9 cm submucosal myoma in the posterior body demonstrates a less than 50% submucosal component. Question of a possible endocervical lesion measuring 0.5 x 1.4 cm which could potentially reflect an endocervical polyp, consider correlation with saline sonohysterogram if warranted. Both ovaries are of normal size and echogenicity. The right measures 1.7 x 1.0 x 2.2 cm for a volume of 2 mL. The left measures 2.6 x 1.9 x 1.5 cm for a volume of 3.9 mL. There is no pelvic free fluid. US/US pelvic and transvaginal IMPRESSION: The endometrium measures 0.6 cm in thickness, given provided history of postmenopausal bleeding recommend gynecologic evaluation and management. Question of a possible endocervical lesion measuring 1.4 cm which could potentially reflect an endocervical polyp, consider correlation with saline sonohysterogram if warranted. Submucosal myomas measuring up to 2.2 cm, as detailed above. Unremarkable appearance of the ovaries.
== END 2022-03-19 15:56 | disposition home or self-care (01) ==
LOC: HO.US 15:55
PROVIDERS: Visit Provider Advanced Practice Midwife
DX: N95.0 Postmenopausal bleeding (principal)
CPT/HCPCS: 76830; 76856

== ENCOUNTER → 2022-03-26 08:38 | Outpatient (BNVA) | payer OTHER, SELFPAY | PROVIDERS: Visit Provider Advanced Practice Midwife | DX: N95.0 Postmenopausal bleeding (principal) ==

== ENCOUNTER 2022-04-10 11:00 | Outpatient (REF) | payer OTHER, SELFPAY ==
[2022-04-11 12:18] LABS: BV Int Neg Control Negative (Negative); BV Int Pos Control Positive (Positive)
== END 2022-04-10 11:01 | disposition home or self-care (01) ==
LOC: HO.LNP 11:00
PROVIDERS: Visit Provider Advanced Practice Midwife
DX: N89.8 Other specified noninflammatory disorders of vagina (principal); M79.621 Pain in right upper arm; B37.31 Acute candidiasis of vulva and vagina
CPT/HCPCS: 87480; 87510; 87660

== ENCOUNTER 2022-04-20 08:10 | Outpatient (REF) | payer OTHER, SELFPAY ==
--- NOTE | 2022-04-20 11:28 | MHC.AU.HA2 ---
Hearing Instrument Fitting- Adult- Binaural Date of Visit: 04/20/22 Hearing Instruments Dispensed: Right Ear: Make, Model, Color, Serial Number: Nazario Steveeo P70-R, #[id number], Graphite Mckoy Certified First Assistant Repair Warranty: 05/24/2025 Certified First Assistant Loss and Damage Warranty: 05/24/2025 [facility] Service Plan: 04/20/2023 Battery Size: Rechargeable Senior Controller/Slim Tube: 1M Senior Controller 4.0 Earmold/Dome/CShell/SlimTip: Small Open Dome Type of Wax Guard: CeruShield Left Ear: Make, Model, Color, Serial Number: Phontonia Steveeo P70-R, #[id number], Graphite Mckoy Certified First Assistant Repair Warranty: 05/24/2025 Certified First Assistant Loss and Damage Warranty: 05/24/2025 [facility] Service Plan: 04/20/2023 Battery Size: Rechargeable Senior Controller/Slim Tube: 1M Senior Controller 4.0 Earmold/Dome/CShell/SlimTip: Small Open Dome Type of Wax Guard: CeruShield Summary of Fitting: Patient arrived to fit the appssavvy Audeo P instruments that will be replacing the M instruments. She returned the M instruments in good condition. With permission from the Phonak rep, Gabriel Arevalo, the M instruments were returned for credit. The Audeo P instruments were programmed. Feedback logistics project manager run and verifit performed. Patient was pleased with the sound of the instruments. She does not want them paired to her phone at this time. Recommendations: A hearing instrument follow-up was scheduled. A physical copy of the instruction booklet was requested and will be given to the patient at the follow-up. Diagnosis Code(s): Primary Diagnosis: H90.3 Bilateral Sensorineural Hearing Loss Signature: Provider: Deni Thompson, [facility]
== END 2022-04-20 08:11 | disposition home or self-care (01) ==
LOC: HO.HAP 08:10
PROVIDERS: Visit Provider Family Medicine
DX: Z13.89 Encounter for screening for other disorder (principal)

== ENCOUNTER → 2022-04-27 08:02 | Outpatient (BNVA) | payer OTHER, SELFPAY | PROVIDERS: Visit Provider Obstetrics & Gynecology | DX: Z13.89 Encounter for screening for other disorder (principal) ==

== ENCOUNTER 2022-04-28 08:30 | Outpatient (REF) | payer OTHER, SELFPAY ==
--- NOTE | 2022-04-28 10:30 | MHC.AU.HFU ---
Hearing Instrument Follow-Up- Binaural Date of Visit: 04/28/22 Right Ear: Phonak Audeo P70-R, #[id number], Graphite Mckoy Repair Warranty: 05/24/2025 Loss and Damage Warranty: 05/24/2025 Service Plan: 04/20/2023 Battery Size: Rechargeable Lead Atg Developer: 1M Lead Atg Developer 4.0 with retention wire Type of Dome: Small Open Dome Type of Wax Guard: CeruShield Dispensed By: [facility] Date of Fittin01/16/2022 Left Ear: Phonak Audeo P70-R, #[id number], Graphite Mckoy Repair Warranty: 05/24/2025 Loss and Damage Warranty: 05/24/2025 Service Plan: 04/20/2023 Battery Size: Rechargeable Lead Atg Developer: 1M Lead Atg Developer 4.0 with retention wire Type of Dome: Small Open Dome Type of Wax Guard: CeruShield Dispensed By: [facility] Date of Fittin01/16/2022 Follow-Up Summary: Noa Hernandez is here today for a hearing aid check. She reports her left hearing aid is painful in her ear. She is wondering if the sizing of the retail pricing coordinator wire and retention wire are appropriate. Otoscopy reveals clear ear canals bilaterally, no redness or sore spot noted. Visual inspection of the hearing aids reveals the left hearing aid retention wire is curled the wrong way. I replaced both left and right hearing aid retention wires. Visual inspection of the physical fit it good bilaterally. Length of retail pricing coordinator wires and retention wires are appropriate as is. We practiced insertion a few times. She was able to curl back the retention wire appropriately after some practice. I counseled the patient on fit with mask and glasses and that using a mask clip can help. She would like one to try. She is also requesting an Audeo P manual. She will return in 1 month to assess fit and to dispense mask clip and hearing aid manual. Diagnosis Code(s): Primary Diagnosis: H90.3 Bilateral Sensorineural Hearing Loss Signature: Provider: Orquidea Khan, [facility]
== END 2022-04-28 08:31 | disposition home or self-care (01) ==
LOC: HO.HAP 08:30
PROVIDERS: Visit Provider Family Medicine
DX: Z13.89 Encounter for screening for other disorder (principal)

== ENCOUNTER 2022-05-15 06:02 | Day surgery (SDC) | payer OTHER, SELFPAY ==
[2022-05-08 15:33] VITALS: BMI 43.2
[2022-05-15] VITALS (7 sets, daily range): BP systolic 125–165; BP diastolic 46–87; PULSE 74–95; RESP 16–18; TEMP 36.1–36.3; O2SAT 94–97
[2022-05-15 06:34] LABS: Glucose, Whole Blood 151 mg/dL (60-115)
[2022-05-15] MEDS: Lactated Ringers 1,000 ML 50 ML IVCONT (07:01)
--- NOTE | 2022-05-15 07:18 | HO.ANESPROP2 ---
HPI - Anesthesia Eval Consult details Narrative: D&C, hysteroscopy PMFSH Active Problems Active Problems: All Active Problems (Updated 05/08/22 @ 15:32 by Anjali Skelton RN) Bipolar disorder (Acute) Facial tic (Acute) Diverticulosis of colon (Acute) Hot flashes (Acute) Callus (Acute) Increased follicle stimulating hormone (FSH) level (Acute) Low HDL (under 40) (Acute) Colitis (Acute) Constipation by delayed colonic transit (Acute) Skin irritation (Acute) Hypokalemia (Acute) Dorsalgia of lumbar region (Acute) Leg swelling (Acute) Herniation of intervertebral disc between L4 and L5 (Acute) Hyponatremia (Acute) Mild anemia (Acute) Change in hearing (Acute) Lymphadenopathy (Acute) Low back pain (Acute) Vulvovaginal candidiasis (Acute) High triglycerides (Acute) Vulvar lesion (Acute) Bilateral hand pain (Acute) Fibromyalgia (Acute) Difficulty sleeping (Acute) Urinary frequency (Acute) Swelling (Acute) Fear of flying (Acute) Movement disorder (Acute) Obstructive sleep apnea (Acute) Family history of breast cancer (Acute) PMB (postmenopausal bleeding) (Acute) Bipolar disorder (Acute) SILKE (obstructive sleep apnea) (Acute) Diabetes 1.5, managed as type 2 (Acute) IBS (irritable colon syndrome) (Acute) Past Medical History Medical History (Updated 05/08/22 @ 15:32 by Anjali Skelton RN) Abnormal involuntary movements Asthma Bipolar disorder BMI 37.0-37.9, adult Diabetes 1.5, managed as type 2 History of general anesthesia complication Hx of coronary angiogram IBS (irritable colon syndrome) SILKE (obstructive sleep apnea) Seizure Family History Family History Father HTN (hypertension) CVD (cardiovascular disease) Diabetes Mother Hypercholesteremia Metastatic breast cancer Uterus cancer Brother No problems noted. Family history of problems with anesthesia: No Surgical History Surgical History (Updated 05/08/22 @ 14:59 by Anjali Skelton RN) Hx of colonoscopy Hx of dilation and curettage Hx of tonsillectomy Hx of wisdom tooth extraction History of Problems with Anesthesia: No Social History Social History Housing: House Are you a primary restorative care technician to a significant other at home: No Do you presently have visiting nurse or other home services: No Alcohol intake: never Patient Tobacco Use Status: Never used Tobacco Second Hand Smoke Exposure: Yes Use of substances other than those prescribed or required for medical reasons: No Have you been hit, kicked, punched, or otherwise hurt by someone within the past year? If so, by whom?: No Are you DNR?: No Advance Directives: No Advance Directives Information Provided: Yes (brochure mailed) Advance Directives on File: No Recently lost weight without trying: No Eating poorly because of decreased appetite: No Nutrition Risks: No Nutritional Risk Patient : No FDLMP: N/A-perimenopausal : No Poor oral hygiene: No service: No Current occupational status: employed Current occupational exposures/hazards: No Cognitive needs: No Hearing needs: No Vision needs: No Meds Allergies Allergy/AdvReac Type Severity Reaction Status Date / Time lactose [LACTOSE] AdvReac Intermediate GI DISTRESS Verified 04/27/22 08:10 codeine [CODEINE] AdvReac Mild NAUSEA, Verified 04/27/22 08:10 nausea and vomiting Active Medications: Current Medications Lactated Ringer's (Lr) 500 mls @ 50 mls/hr IV .Q10H GISELL Stop: 05/15/22 16:59 Lactated Ringer's (Lr) 1,000 mls @ 50 mls/hr IVCONT .Q20H [facility] Last Admin: 05/15/22 07:01 Dose: 50 mls/hr Home Medications Medication Instructions Recorded Confirmed Last Taken Type aspirin 81 mg tablet,delayed 81 mg PO DAILY 01/23/21 05/08/22 Unknown History release mometasone 50 mcg/actuation nasal 2 spray intranasal DAILY PRN Nasal 01/23/21 05/08/22 Unknown History spray (Nasonex) Congestion tacrolimus 0.1 % topical ointment 1 appl topical BID 01/23/21 05/08/22 Unknown History (Protopic) ibuprofen 600 mg tablet 600 mg PO QID PRN pain 05/08/21 05/08/22 Unknown History venlafaxine 75 mg tablet,extended 75 mg PO QAM 09/24/21 05/08/22 05/15/22 History release 24 hr lamotrigine 25 mg tablet 50 mg PO QAM 04/10/22 05/08/22 Unknown History meloxicam 7.5 mg tablet 7.5 mg PO BID 04/10/22 05/08/22 Unknown History calcium carbonate 600 mg-vitamin 1 tab PO DAILY 05/08/22 05/08/22 Unknown History D3 5 mcg (200 unit) tablet multivitamin 1 tab PO DAILY 05/08/22 05/08/22 Unknown History venlafaxine 150 mg 150 mg PO QAM 05/08/22 05/08/22 05/15/22 History capsule,extended release 24 hr Exam Exam Date and Time: May 15, 2022 0718 Height,Weight and Vital Signs: Height 5 ft 6 in Weight 121.563 kg Last Vital Signs Temp 97.4 F 05/15/22 06:23 Pulse 84 05/15/22 06:23 Resp 18 05/15/22 06:23 BP 130/72 05/15/22 06:23 Pulse Ox 97 05/15/22 06:23 O2 Del Method 05/15/22 06:23 Pertinent Lab Results Pertinent Lab Results: Laboratory Tests 05/15/22 06:26 POC Glucose 151 H Airway Mallampati Class: I TM Dist: >3cm Neck ROM: Full Heart: ok Lungs: ok Assessment and Plan Assessment Anesthesia Assessment: Anesthesia Plan Discussed and Chart Reviewed Final Anesthetic Review Family History of Problems with Anesthesia: No History of Problems with Anesthesia: No NPO: Yes ASA Class: III Final Preanesthetic Review: No Changes in Pt Med Stat, Meds/Allgs Chart Reviewed, Consent Obtained/Reviewed and Anes Risks/Benef Reviewed Patient Risk: Intermediate Procedure Risk: Low Anesthetic Plan Anesthetic Plan: GA and Agree w/ Assess. and Plan Disposition: Standard PACU
--- NOTE | 2022-05-15 07:40 | MHC.SHP ---
Pre-Procedural Eval Section A Date of Service: 05/15/22 The patient is an INPATIENT: No Changes since office visit: No Cold of Flu in the past 2 weeks, No New Medical Problems, No Changes in Medication and No Patient answered all questions The History & Physical has been completed within 30 days and I have reviewed it.: Yes Section B Chief Complaint: Postmenopausal bleeding Allergies: Allergies Allergy/AdvReac Type Severity Reaction Status Date / Time lactose [LACTOSE] AdvReac Intermediate GI DISTRESS Verified 04/27/22 08:10 codeine [CODEINE] AdvReac Mild NAUSEA, Verified 04/27/22 08:10 nausea and vomiting Plan Diagnosis/Plan: Unchanged I have reviewed the history and physical and performed a pertinent physical examination on my patient. No changes have occurred unless specified. Time Spent With Patient Time: Total time managing care of this patient today ____ minutes.
--- NOTE | 2022-05-15 08:07 | P.BOP_ITS ---
Brief Operative Note Date of Service: 05/15/22 Pre-op diagnosis: Postmenopausal bleeding with endometrial polyp by ultrasound Post-op diagnosis: same (Endometrial biopsy) Procedure: Hysteroscopy D&C, Polypectomy Surgeon: Sha Mckeon MD Anesthesia: GLMA Was an Platform Architect used for this Procedure?: No Estimated blood loss (mL): 0 Pathology: other (Endometrial Scrapping. Polyp) Condition: stable Disposition: PACU
--- NOTE | 2022-05-15 08:08 | P.OP_ITS ---
Operative Note Operative Note Date of Service: 05/15/22 Narrative: Preop Diagnosis: Postmenopausal bleeding with Endometrial polyp by US Operation: Diagnostic Hysteroscopy, Dilataion & Curettage and polypectomy Post Op Diagnosis: Endometrial Polyp QBL: Minimal Anesthesia: GLMA Surgeon: Sha Mckeon MD [place] [facility] [place]: None Complication: None Pathology: Endometrial Scrapings, Endometrial polyp Procedure: The patient was put in the dorsal lithotomy position, scrubbed, and draped in the usual manner. A sterile speculum was inserted in the patient's vagina. The anterior lip of the cervix was grasped with a single tooth tenaculum. The cervix was dilated up to 5 mm, then the scope was inserted in the patient's uterus. Inspection revealed endometrial polyp. The Myosure Reach device was used; it was introduced through the operative channel and polypectomy done with no complications. The scope was then taken out from the uterine cavity, sharp curettings was carried on with minimal to moderate amount of tissues retrieved. At the end of the procedure, all instruments were taken out of the patient uterine and vaginal cavity. The single tooth tenaculum was removed and homeostasis was assured using pressure. The patient tolerated the procedure well and was transferred to the PACU in a stable condition.
[2022-05-15] MEDS: Acetaminophen 325 MG TABLET 650 MG PO (08:30)
== END 2022-05-15 09:22 | disposition home or self-care (01) ==
PROVIDERS: PCP Family Medicine; Visit Provider Obstetrics & Gynecology
PROC: 0UDB8ZZ Extraction of Endometrium, Via Natural or Artificial Opening Endoscopic (ICD-10-PCS; CPT 58558; principal; 2022-05-15 07:30)
DX: N95.0 Postmenopausal bleeding (principal); N84.0 Polyp of corpus uteri; Z80.3 Family history of malignant neoplasm of breast; Z80.49 Family history of malignant neoplasm of other genital organs; R25.9 Unspecified abnormal involuntary movements; G47.33 Obstructive sleep apnea (adult) (pediatric); R56.9 Unspecified convulsions; F31.9 Bipolar disorder, unspecified; E13.8 Other specified diabetes mellitus with unspecified complications; Z79.84 Long term (current) use of oral hypoglycemic drugs; Z79.82 Long term (current) use of aspirin; Z79.899 Other long term (current) drug therapy; Z88.8 Allergy status to other drugs, medicaments and biological substances
CPT/HCPCS: 58558; 82947; 88305; J2405; J3010

== ENCOUNTER → 2022-05-28 08:07 | Outpatient (BNVA) | payer OTHER, SELFPAY | PROVIDERS: PCP Family Medicine; Visit Provider Obstetrics & Gynecology | DX: Z13.89 Encounter for screening for other disorder (principal) ==

== ENCOUNTER 2022-07-23 10:24 | Outpatient (REF) | payer OTHER, SELFPAY ==
[2022-07-23 14:10] LABS: Alanine Aminotransferase 24 U/L (0-31); Albumin Level 4.6 g/dL (3.5-5.0); Alkaline Phosphatase 77 U/L (39-117); Anion Gap 12 (12-20); Aspartate Amino Transferase 21 U/L (5-31); Bilirubin Total 0.5 mg/dL (0.0-1.0); Blood Urea Nitrogen 10 mg/dL (9-16); Calcium 10.2 mg/dL (8.4-10.2); Carbon Dioxide 33 mmol/L (22-29); Chloride 100 mmol/L (96-108); Cholesterol 162 mg/dL; Estimated Glomerular Filt Rate > 60; Glucose Random 111 mg/dL (60-115); HDL Cholesterol 35 mg/dL; LDL Cholesterol Calculated 95 mg/dl; Sodium 141 mmol/L (135-145); Total Protein 6.9 g/dL (6.5-8.0); Triglycerides 164 mg/dL
[2022-07-23 14:28] LABS: TSH reflex Free T4 1.06 uIU/mL (0.32-4.0)
[2022-07-26 08:19] LABS: LDL Cholesterol Direct 91 mg/dL (<100)
== END 2022-07-23 10:25 | disposition home or self-care (01) ==
LOC: HO.WFDLDS 10:24
PROVIDERS: Visit Provider Family Medicine
DX: Z00.00 Encounter for general adult medical examination without abnormal findings (principal); E13.9 Other specified diabetes mellitus without complications
CPT/HCPCS: 36415; 80053; 80061; 83721; 84443

== ENCOUNTER 2022-10-20 14:10 | Outpatient (REF) | payer OTHER, SELFPAY ==
[2022-10-21 11:48] LABS: BV Int Neg Control Negative (Negative); BV Int Pos Control Positive (Positive)
== END 2022-10-20 14:11 | disposition home or self-care (01) ==
LOC: HO.LNP 14:10
PROVIDERS: PCP Family Medicine; Visit Provider Advanced Practice Midwife
DX: N89.8 Other specified noninflammatory disorders of vagina (principal)
CPT/HCPCS: 87480; 87510; 87660; 99212

== ENCOUNTER 2022-10-20 14:10 | Outpatient (AMB) | payer OTHER, SELFPAY ==
--- NOTE | 2022-10-20 14:15 | A.OFFVIS_ITS ---
Intake Vital Signs 10/20/22 14:16 Height 5 ft 6 in Weight 266 lb BMI 42.9 BP 122/72 Intake Visit Reasons: ? vaginal infection/keep 30 mins per bM Intake Note: vaginal discharge and itchy The patient agreed to use of a ophthalmic medical technician during this encounter. Scribed for ESAU Palacios by Temitope Lorenzo, ophthalmic medical technician, on 10/20/2022 at 2:37 pm EST. Master Ocean Required: No Information Interpreted: non-clinical & clinical Mental Hygienist: Mental Hygienist Present (Aidyn) Allergies lactose [LACTOSE] Adverse Reaction (Intermediate, Verified 10/20/22 14:18) GI DISTRESS codeine [CODEINE] Adverse Reaction (Mild, Verified 10/20/22 14:18) NAUSEA, nausea and vomiting Is last menstrual period known: No Post menopausal: Yes HPI HPI Comments History of Present Illness Details She is here with complains of vaginal itching and discharge. Denies pelvic pain or vaginal odor. Concerned she was treated for BV last month over the phone and the symptoms have returned already. PFSH Medical History Abnormal involuntary movements Asthma Bipolar disorder BMI 37.0-37.9, adult Diabetes 1.5, managed as type 2 History of general anesthesia complication Hx of coronary angiogram IBS (irritable colon syndrome) SILKE (obstructive sleep apnea) Seizure Surgical History Hx of colonoscopy Hx of dilation and curettage Hx of tonsillectomy Hx of wisdom tooth extraction Family History Father HTN (hypertension) CVD (cardiovascular disease) Diabetes Mother Hypercholesteremia Metastatic breast cancer Uterus cancer Brother No problems noted. Social History Housing: House Are you a primary lpn care manager to a significant other at home: No Do you presently have visiting nurse or other home services: No Alcohol intake: never Patient Tobacco Use Status: Never used Tobacco e-Cigarette/Vaping Use: Never Used Second Hand Smoke Exposure: Yes service: No Current occupational status: employed Current occupation: [employer] Current occupational exposures/hazards: No Cognitive needs: No Hearing needs: No Vision needs: No Female Reproductive History Menstrual Age of Menarche: 10 control method: none Date of last pap smear: 02/12/21 (negative) Date of Mammogram: 12/13/21 Physical Exam Vital Signs: Last Vital Signs BP 122/72 10/20/22 14:16 BMI result Body Mass Index 42.9 Const General: cooperative, healthy appearing, comfortable, no acute distress, well developed, alert and awake Other: General: Yes bladder normal to palpation External Female Exam: normal external appearance and normal appearance of the urethra Speculum Exam - Vagina: normal appearance of the vagina, normal palpation, abnormal vaginal discharge (small amount of thin) frothy and vagina atrophic Speculum Exam - Cervix: normal appearance of the cervix and normal palpation Bimanual exam- vagina & uterus: normal bimanual exam, normal palpation, bladder normal to palpation and normal palpation Bimanual Exam- Adnexa, other: normal adnexae and no masses Results Reviewed Results Reviewed: Laboratory Tests 04/10/22 11:00 Gardnerella DNA Probe Positive A Assessment & Plan Assessment & Plan (1) Vaginal discharge: Code(s): N89.8 - Other specified noninflammatory disorders of vagina Plan: Discussed: Advised not to douche or vaginal finger cleaning. Boric acid protocol reviewed. Recommend women's health probiotics-she is considering this as her first option. BV testing and GC/CT panel done today. Await results and treat accordingly. All of her questions and concerns were addressed to the best of my ability and shared decision making. She is agreeable to plan of care. (2) Vaginal itching: Code(s): N89.8 - Other specified noninflammatory disorders of vagina Orders: Orders Bacterial Vaginosis Panel Today N89.8 - Other specified noninflammatory disorders of vagina Coding Level of Care Code Est Pt Level 3 (67500) Diagnoses Vaginal discharge N89.8 Vaginal itching N89.8
[2022-10-20 14:16] VITALS: BP 122/72; BMI 42.9
== END 2022-10-20 14:58 | disposition home or self-care (01) ==
LOC: HO.HWS 14:10
PROVIDERS: PCP Family Medicine; Visit Provider Advanced Practice Midwife
DX: N89.8 Other specified noninflammatory disorders of vagina (principal)
CPT/HCPCS: 99213

== ENCOUNTER 2022-10-22 08:29 | Outpatient (AMB) | payer OTHER, SELFPAY ==
[2022-10-22 08:34] VITALS: BP 106/64; PULSE 87; RESP 12; TEMP 36.5; O2SAT 99; BMI 42.7
--- NOTE | 2022-10-22 08:34 | MHC.PC.OV ---
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 Accompanied by: Self / Same As Patient Allergies lactose [LACTOSE] Adverse Reaction (Intermediate, Verified 10/22/22 08:42) GI DISTRESS codeine [CODEINE] Adverse Reaction (Mild, Verified 10/22/22 08:42) NAUSEA, nausea and vomiting Tobacco use date assessed: 06/02/22 Dental Screening Dental Screen Date: 10/22/22 Did you have a dental visit in the last 12 months?: Yes Did you have a dental problem in the last 6 months where you did not have access to dental care?: No Was dental information given to patient?: Patient has dentist HPI f/u chronic conditions HPI Details 52 y/o female presents to f/u chronic conditions. She had reported last office visit that she had tried to start her Ozempic but insurance had denied this. She continues metformin and pioglitazone for her diabetes. She is tolerating pioglitazone okay. She reports she had been let go from her job and had not been eating well recently. She reports she has been dizzy and off balance the past few days. She has been taking zyrtec. [facility] Medical History Abnormal involuntary movements Asthma Bacterial vaginosis Bipolar disorder BMI 37.0-37.9, adult Diabetes 1.5, managed as type 2 History of general anesthesia complication Hx of coronary angiogram IBS (irritable colon syndrome) SILKE (obstructive sleep apnea) Seizure Surgical History H/O cervical polypectomy Hx of colonoscopy Hx of dilation and curettage Hx of tonsillectomy Hx of wisdom tooth extraction Family History Father HTN (hypertension) CVD (cardiovascular disease) Diabetes Mother Hypercholesteremia Metastatic breast cancer Uterus cancer Brother No problems noted. Other Alcoholism Mental health disorder Social History (Reviewed 10/22/22 @ 08:55 by THERESA Ron Housing: House Are you a primary healthcare administrator to a significant other at home: No Do you presently have visiting nurse or other home services: No Alcohol intake: never Patient Tobacco Use Status: Never used Tobacco e-Cigarette/Vaping Use: Never Used Second Hand Smoke Exposure: Yes service: No Current occupational status: unemployed Current occupational exposures/hazards: No Cognitive needs: No Hearing needs: No Vision needs: No Female Reproductive History Menstrual Age of Menarche: 10 Questionnaire Thrive Questionnaire Date Thrive assessed: 06/02/22 ANIRUDH-7 AMB Questionnaire ANIRUDH-7 Date ANIRUDH - 7 assessed: 06/02/22 Source: Developed by Drs. Nigel Houser, Lorena Mccoy, Von Castro and colleagues, with an educational everett from [employer]. Review of Systems Const Denies chills, Denies fatigue, Denies fever(s), Denies headache(s) and Denies weakness ENT Reports dizziness and Denies headache(s) Card Denies chest pain, Denies lightheadedness, Denies dyspnea and Denies other (Palpitations) Resp Denies cough, Denies dyspnea, Denies wheezing and Denies other ( shortness of breath) Musc Denies numbness and Denies tingling Neuro Reports dizziness, Denies headache(s), Denies numbness, Denies tingling, Denies paresthesias and Denies weakness Psych Denies anxiety and Denies depression Endo Denies fatigue Aller/Immun Denies wheezing Physical exam (Primary Care) Vital Signs: Last Vital Signs Temp 97.7 F 10/22/22 08:34 Pulse 87 10/22/22 08:34 Resp 12 10/22/22 08:34 BP 106/64 10/22/22 08:34 Pulse Ox 99 10/22/22 08:34 Oxygen Delivery Method Room Air 10/22/22 08:34 BMI result Body Mass Index 42.7 Tobacco/Smoking Status: Tobacco use Status Tobacco use date assessed 06/02/22 10/22/22 08:55 Patient Tobacco Use Status Never used Tobacco 10/22/22 08:55 e-Cigarette/Vaping Use Never Used 10/22/22 08:55 Thrive Assessment: Date of Thrive Assessment Date Thrive assessed 06/02/22 10/22/22 08:55 Const General: no acute distress and well developed Nutritional Appearance: obese morbidly obese Orientation/consciousness: patient oriented x3 HENMT Head: Yes normocephalic and Yes atraumatic Eyes General: appearance normal, both eyes and all related structures Pupils: Equal, round and reactive pupils present EOM: EOMs intact bilaterally Resp Effort & Inspection: normal respiratory effort Auscultation: clear to auscultation bilaterally Cardio Rate: regular rate Rhythm: regular rhythm Heart sounds: S1 normal heart sound present, S2 normal heart sound present, no gallops, no murmurs and no rubs Neuro General: patient oriented x3 and gait normal Cranial nerves: Yes Equal, round and reactive pupils present Psych Affect: normal affect Assessment and Plan Assessment & Plan (1) Diabetes 1.5, managed as type 2: Comment: taking metformin & actos-glucose usually ~ 140-160 Code(s): E13.9 - Other specified diabetes mellitus without complications Plan: Blood sugars show worsening control at home and A1cs have been elevated She is on metformin and p.o. glipizide own. She had not tolerated higher doses of metformin well though she is tolerating current dose of 500 mg b.i.d.. She will continue the above medications as prescribed Start Artis Will follow-up in a month to ensure she is tolerating this regimen (2) Hypertension: Code(s): I10 - Essential (primary) hypertension Plan: Blood pressure is a little lower today though it has been fairly well controlled She did note some dizziness though this is primarily when she is lying down and not related to standing or sitting Continue current blood pressure medication. Goal is less than 140/90 Hydrate well (3) Morbid obesity: Code(s): E66.01 - Morbid (severe) obesity due to excess calories Plan: She is not currently working and has had more dietary indiscretions Encouraged working on diet and exercise and avoiding snacking (4) Dizziness: Code(s): R42 - Dizziness and giddiness Plan: She notes some vertigo-like symptoms Does not appear to be related to standing or sitting/orthostasis Did advise her to hydrate well however This appears to be more related to her allergy symptoms She will use some Benadryl at bedtime She will let me know if not improving or if worsens Does also have an otitis externa but no evidence of middle ear infection or inner ear infection. (5) Infection of ear canal: Code(s): H60.399 - Other infective otitis externa, unspecified ear Plan: Mild canal infection and irritation Will give her a topical drop Medications: New dulaglutide (Trulicity) 0.75 mg (0.5 mL) subcut QWEEK 28 days 2 mL 1RF ciprofloxacin-dexamethasone 0.3-0.1 % (Ciprodex) 4 drps otic (ears) BID 7.5 mL 0RF 7 days Coding Level of Care Code Est Pt Level 4 (90462) Diagnoses Diabetes 1.5, managed as type 2 E13.9 Hypertension I10 Morbid obesity E66.01 Dizziness R42 Infection of ear canal H60.399
== END 2022-10-22 09:42 | disposition home or self-care (01) ==
PROVIDERS: PCP Family Medicine; Visit Provider Family Medicine
DX: E13.9 Other specified diabetes mellitus without complications (principal); I10 Essential (primary) hypertension; E66.01 Morbid (severe) obesity due to excess calories; Z68.41 Body mass index [BMI] 40.0-44.9, adult; R42 Dizziness and giddiness
CPT/HCPCS: 99214

== ENCOUNTER 2022-11-19 08:40 | Outpatient (AMB) | payer OTHER, SELFPAY ==
--- NOTE | 2022-11-19 08:46 | A.OFFPC_ITS ---
Vital Signs 11/19/22 08:49 Height 5 ft 6 in Weight 265 lb BMI 42.8 BP 116/60 Blood Pressure Location Rt brachial Position Sitting Respiration 12 Pulse 94 Temp 97.7 F Temp Source Temporal Artery Scan Pulse Oximetry (%) 99 Oxygen Delivery Method Room Air Intake Visit Reasons: f/u diabetes Intake Note: Patient would like to discuss some things with her memory and also to recheck her right ear if there is time. Most recent A1c is 6.8. 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 Accompanied by: Self / Same As Patient Allergies lactose [LACTOSE] Adverse Reaction (Intermediate, Verified 11/19/22 08:54) GI DISTRESS codeine [CODEINE] Adverse Reaction (Mild, Verified 11/19/22 08:54) NAUSEA, nausea and vomiting Tobacco use date assessed: 06/02/22 Dental Screening Dental Screen Date: 11/19/22 Did you have a dental visit in the last 12 months?: Yes Did you have a dental problem in the last 6 months where you did not have access to dental care?: No Was dental information given to patient?: Patient has dentist HPI f/u diabetes HPI Details 52 y/o female presents to f/u diabetes. She reports she had received her Trulicity and had been taking it for 4 weeks. She states she was nauseous after the first two injections but is fine now. Blood sugars at home improved and have been in the high 90s-1 teens. She is not able to get much exercise right now due to her sciatica pain. She reports ongoing issues with constipation. She has been taking probiotics and omega 3 fatty acids. She states she will start to take her miralax. [facility] Medical History Abnormal involuntary movements Asthma Bacterial vaginosis Bipolar disorder BMI 37.0-37.9, adult Diabetes 1.5, managed as type 2 History of general anesthesia complication Hx of coronary angiogram IBS (irritable colon syndrome) SILKE (obstructive sleep apnea) Osteopenia Seizure Surgical History H/O cervical polypectomy Hx of colonoscopy Hx of dilation and curettage Hx of tonsillectomy Hx of wisdom tooth extraction Family History Father HTN (hypertension) CVD (cardiovascular disease) Diabetes Mother Hypercholesteremia Metastatic breast cancer Uterus cancer Brother No problems noted. Other Alcoholism Mental health disorder Social History Housing: House Are you a primary transitional care nurse to a significant other at home: No Do you presently have visiting nurse or other home services: No Alcohol intake: never Patient Tobacco Use Status: Never used Tobacco e-Cigarette/Vaping Use: Never Used Second Hand Smoke Exposure: Yes service: No Current occupational status: unemployed Current occupational exposures/hazards: No Cognitive needs: No Hearing needs: No Vision needs: No Female Reproductive History Menstrual Age of Menarche: 10 Questionnaire Thrive Questionnaire Date Thrive assessed: 06/02/22 ANIRUDH-7 AMB Questionnaire ANIRUDH-7 Date ANIRUDH - 7 assessed: 06/02/22 Source: Developed by Drs. Nigel Houser, Lorena Mccoy, Von Castro and colleagues, with an educational everett from [employer]. Physical exam (Primary Care) Vital Signs: Last Vital Signs Temp 97.7 F 11/19/22 08:49 Pulse 94 11/19/22 08:49 Resp 12 11/19/22 08:49 BP 116/60 11/19/22 08:49 Pulse Ox 99 11/19/22 08:49 Oxygen Delivery Method Room Air 11/19/22 08:49 BMI result Body Mass Index 42.8 Tobacco/Smoking Status: Tobacco use Status Tobacco use date assessed 06/02/22 11/19/22 08:46 Patient Tobacco Use Status Never used Tobacco 11/19/22 08:46 e-Cigarette/Vaping Use Never Used 11/19/22 08:46 Thrive Assessment: Date of Thrive Assessment Date Thrive assessed 06/02/22 11/19/22 08:46 Assessment and Plan Assessment & Plan (1) Diabetes 1.5, managed as type 2: Code(s): E13.9 - Other specified diabetes mellitus without complications Plan: Blood sugars much improved with addition of Trulicity. She continues metformin and pioglitazone as prescribed Continue current medication regimen She will follow-up in about 2 months and will be due for an A1c (2) Sciatica: Code(s): M54.30 - Sciatica, unspecified side Plan: Partially hindering her ability to exercise. Follow-up with chiropractor (3) Constipation: Code(s): K59.00 - Constipation, unspecified Plan: Continue good hydration, soluble fiber, magnesium and can use MiraLax sparingly. If not improving would refer her to GI (4) Infection of ear canal: Code(s): H60.399 - Other infective otitis externa, unspecified ear Plan: She had had a right ear infection appears resolved. Some residual irritation remains and some wax She can use Debrox drops Coding Level of Care Code Est Pt Level 4 (31323) Diagnoses Diabetes 1.5, managed as type 2 E13.9 Sciatica M54.30 Constipation K59.00 Infection of ear canal H60.399
[2022-11-19 08:49] VITALS: BP 116/60; PULSE 94; RESP 12; TEMP 36.5; O2SAT 99; BMI 42.8
== END 2022-11-19 09:51 | disposition home or self-care (01) ==
PROVIDERS: PCP Family Medicine; Visit Provider Family Medicine
DX: E13.9 Other specified diabetes mellitus without complications (principal); M54.30 Sciatica, unspecified side; K59.00 Constipation, unspecified; H60.391 Other infective otitis externa, right ear
CPT/HCPCS: 99214

== ENCOUNTER 2023-01-12 08:15 | Outpatient (AMB) | payer OTHER, SELFPAY ==
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
[2023-01-12 08:26] VITALS: BP 114/70; PULSE 88; RESP 12; TEMP 36.6; O2SAT 99; BMI 42.0
== END 2023-01-12 09:10 | disposition home or self-care (01) ==
PROVIDERS: PCP Family Medicine; Visit Provider Family Medicine
DX: E13.9 Other specified diabetes mellitus without complications (principal); M54.30 Sciatica, unspecified side; Z68.41 Body mass index [BMI] 40.0-44.9, adult; E66.9 Obesity, unspecified
CPT/HCPCS: 83036; 99214

== ENCOUNTER 2023-02-18 12:02 | Outpatient (REF) | payer OTHER, SELFPAY ==
--- NOTE | ~2023-02-18 | MM_ITS ---
EXAMINATION: MM SCREENING DIGITAL BREAST TOMOSYNTHESIS, BILATERAL CLINICAL INFORMATION: Screening. Asymptomatic. COMPARISON: Mammography: This study is compared with prior exams dating back to 2018. TECHNIQUE: Digital breast tomosynthesis is performed in both the craniocaudal and mediolateral oblique views along with computer-aided detection (CAD). Synthesized 2D images are generated from the tomosynthesis. FINDINGS: The breasts are heterogeneously dense, which may obscure small masses (ACR BI-RADS breast composition Category c). There are no significant masses, abnormal calcifications, or other abnormalities. There are bilateral, unchanged, benign calcifications in each breast. MM/MM tomosynthesis screening BI IMPRESSION: No mammographic evidence of malignancy. ASSESSMENT: BI-RADS BI-RADS 2 - Benign Findings RECOMMENDATION: Routine annual mammography screening. 1 year F/U This examination should not preclude the clinical evaluation of a suspicious palpable abnormality. This patient's information was entered into a reminder system with a target due date for their next mammogram.
== END 2023-02-18 12:03 | disposition home or self-care (01) ==
LOC: HO.MAMMO 12:02
DX: Z12.31 Encounter for screening mammogram for malignant neoplasm of breast (principal)
CPT/HCPCS: 77063; 77067

== ENCOUNTER → 2023-02-18 12:15 | Outpatient (BNV) | payer OTHER, SELFPAY | PROVIDERS: Visit Provider Radiology Diagnostic Radiology | DX: Z12.31 Encounter for screening mammogram for malignant neoplasm of breast (principal) | CPT/HCPCS: 77063; 77067 ==

== ENCOUNTER 2023-03-04 08:06 | Outpatient (AMB) | payer OTHER, SELFPAY ==
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
[2023-03-04 08:13] VITALS: BP 122/84; BMI 42.3
== END 2023-03-04 08:57 | disposition home or self-care (01) ==
PROVIDERS: PCP Family Medicine; Visit Provider Advanced Practice Midwife
DX: Z01.419 Encounter for gynecological examination (general) (routine) without abnormal findings (principal)
CPT/HCPCS: 99396

== ENCOUNTER → 2023-03-04 08:06 | Outpatient (BNVA) | payer OTHER, SELFPAY | PROVIDERS: PCP Family Medicine; Visit Provider Advanced Practice Midwife ==

== ENCOUNTER 2023-03-16 08:56 | Outpatient (AMB) | payer OTHER, SELFPAY ==
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
[2023-03-16 09:03] VITALS: BP 126/74; PULSE 87; O2SAT 100; BMI 42.0
== END 2023-03-16 09:40 | disposition home or self-care (01) ==
PROVIDERS: PCP Family Medicine; Visit Provider Nurse Practitioner Family
DX: M89.8X1 Other specified disorders of bone, shoulder (principal); R10.9 Unspecified abdominal pain
CPT/HCPCS: 99214

== ENCOUNTER 2023-03-17 14:05 | Outpatient (AMB) | payer OTHER, SELFPAY ==
[2023-03-17 14:07] VITALS: BMI 42.0
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
== END 2023-03-17 15:15 | disposition home or self-care (01) ==
PROVIDERS: PCP Family Medicine; Visit Provider Surgery
DX: Z80.3 Family history of malignant neoplasm of breast (principal)
CPT/HCPCS: 99203

== ENCOUNTER → 2023-03-17 14:05 | Outpatient (BNVA) | payer OTHER, SELFPAY | PROVIDERS: PCP Family Medicine; Visit Provider Surgery | DX: Z91.89 Other specified personal risk factors, not elsewhere classified (principal); Z80.3 Family history of malignant neoplasm of breast | CPT/HCPCS: 99202 ==

== ENCOUNTER 2023-03-25 15:22 | Outpatient (AMB) | payer OTHER, SELFPAY ==
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
[2023-03-25 15:25] VITALS: BP 116/68; PULSE 89; RESP 17; O2SAT 99; BMI 41.9
== END 2023-03-25 15:57 | disposition home or self-care (01) ==
PROVIDERS: PCP Family Medicine; Visit Provider Psychiatry & Neurology Neurology
DX: G25.9 Extrapyramidal and movement disorder, unspecified (principal); G47.33 Obstructive sleep apnea (adult) (pediatric)
CPT/HCPCS: 99214

== ENCOUNTER → 2023-03-25 15:22 | Outpatient (BNVA) | payer OTHER, SELFPAY | PROVIDERS: PCP Family Medicine; Visit Provider Psychiatry & Neurology Neurology | DX: G25.9 Extrapyramidal and movement disorder, unspecified (principal); G47.33 Obstructive sleep apnea (adult) (pediatric) | CPT/HCPCS: 99212 ==

== ENCOUNTER 2023-03-30 10:29 | Outpatient (REF) | payer OTHER, SELFPAY ==
--- NOTE | ~2023-03-30 | US_ITS ---
EXAMINATION: US ABDOMEN LIMITED CLINICAL INFORMATION: Unspecified abdominal pain. Pain to abdominal wall around umbilicus. COMPARISON: Ultrasound abdomen complete 07/22/2020. TECHNIQUE: Real-time imaging of the right upper quadrant abdominal viscera. Limited visualization due to bowel gas. FINDINGS: PANCREAS: Limited visualization of pancreatic tail and head. Imaged portion of pancreatic body is unremarkable. LIVER: Increased hepatic parenchymal heterogeneity and echogenicity which could be associated with hepatocellular disease/hepatic steatosis and substantially limits visualization. GALLBLADDER: No gallstones. No gallbladder wall thickening. COMMON BILE DUCT: Normal in caliber measuring 0.3 cm in diameter. RIGHT KIDNEY: No hydronephrosis. No renal calculi. Limited visualization. The kidney measures 12.4 cm in maximum dimension. FREE FLUID: None. ADDITIONAL FINDINGS: Targeted ultrasound images were obtained by the director of email marketing of the area of concern as indicated by the patient in the region of the umbilicus and demonstrated no discrete mass or fluid collection. Limited visualization due to bowel gas. Radiologist was not in attendance. Images were later provided for interpretation. US/US abdomen limited IMPRESSION: 1. Increased hepatic parenchymal heterogeneity and echogenicity which could be associated with hepatocellular disease/hepatic steatosis and substantially limits visualization. 2. Targeted ultrasound images were obtained by the director of email marketing of the area of concern as indicated by the patient in the region of the umbilicus and demonstrated no discrete mass or fluid collection. Limited visualization due to bowel gas. CT scan could be considered for further evaluation.
== END 2023-03-30 10:30 | disposition home or self-care (01) ==
LOC: HO.HMGCX 10:29
PROVIDERS: PCP Family Medicine; Visit Provider Nurse Practitioner Family
DX: R10.9 Unspecified abdominal pain (principal)
CPT/HCPCS: 76705

== ENCOUNTER 2023-06-24 07:27 | Outpatient (AMB) | payer OTHER, SELFPAY ==
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
[2023-06-24 07:38] VITALS: BP 128/72; PULSE 94; BMI 40.6
== END 2023-06-24 09:01 | disposition home or self-care (01) ==
PROVIDERS: PCP Family Medicine; Visit Provider Physician Assistant
DX: E66.01 Morbid (severe) obesity due to excess calories (principal); R10.9 Unspecified abdominal pain; G89.29 Other chronic pain; K64.9 Unspecified hemorrhoids; V89.2XXA Person injured in unspecified motor-vehicle accident, traffic, initial encounter; K57.30 Diverticulosis of large intestine without perforation or abscess without bleeding
CPT/HCPCS: 99204

== ENCOUNTER 2023-06-24 07:27 | Outpatient (REF) | payer OTHER, SELFPAY ==
[2023-06-24 09:17] LABS: MANUAL DIFF FLAG NO
[2023-06-24 10:21] LABS: Basophils Percent Auto 0.5 % (0-2); Eosinophils Absolute Auto 0.2 X10*3/uL (0.0-0.4); Eosinophils Percent Auto 1.9 % (0-4); Hematocrit 39.7 % (37.0-47.0); Hemoglobin 12.6 g/dl (12.0-16.0); Imm Gran Abs Auto 0.05 X10*3/uL (0.00-0.03); Imm Gran Pct Auto 0.6 % (0.0-0.4); Lymphocytes Percent Auto 24.5 % (20-40); Mean Corpuscular HGB Conc 31.7 g/dl (31.0-35.0); Mean Corpuscular Hemoglobin 28.8 pg (27.0-33.0); Mean Corpuscular Volume 90.8 fL (80.0-98.0); Mean Platelet Volume 11.2 fL (9.4-12.3); Monocytes Absolute Auto 0.6 X10*3/uL (0.1-1.2); Monocytes Percent Auto 7.8 % (2-11); Neutrophils Absolute Auto 5.1 x10*3/uL (2.0-8.3); Neutrophils Percent Auto 64.7 % (45-73); Platelet Count 214 X10*3/uL (160-400); Red Blood Count 4.37 X10*6/uL (4.20-5.50)
[2023-06-24 11:03] LABS: Alanine Aminotransferase 20 U/L (0-31); Albumin Level 4.5 g/dL (3.5-5.0); Alkaline Phosphatase 78 U/L (39-117); Anion Gap 14 (12-20); Aspartate Amino Transferase 16 U/L (5-31); Bilirubin Total 0.3 mg/dL (0.0-1.0); Blood Urea Nitrogen 10 mg/dL (9-16); Carbon Dioxide 30 mmol/L (22-29); Chloride 99 mmol/L (96-108); Estimated Glomerular Filt Rate > 60; Glucose Random 82 mg/dL (60-115); Potassium 3.4 mmol/L (3.3-5.1); Sodium 140 mmol/L (135-145); Total Protein 7.2 g/dL (6.5-8.0)
[2023-06-24 11:06] LABS: Thyroid Stimulating Hormone 1.41 uIU/mL (0.32-4.0)
== END 2023-06-24 07:28 | disposition home or self-care (01) ==
LOC: HO.LAB 07:27
PROVIDERS: PCP Family Medicine; Visit Provider Physician Assistant
DX: R10.9 Unspecified abdominal pain (principal); G89.29 Other chronic pain; K64.9 Unspecified hemorrhoids; E66.01 Morbid (severe) obesity due to excess calories; K58.9 Irritable bowel syndrome, unspecified; R19.8 Other specified symptoms and signs involving the digestive system and abdomen; V89.2XXA Person injured in unspecified motor-vehicle accident, traffic, initial encounter
CPT/HCPCS: 36415; 80053; 84443; 85025

== ENCOUNTER 2023-07-08 07:52 | Outpatient (AMB) | payer OTHER, SELFPAY ==
[2023-07-08 07:54] VITALS: BP 114/60; BMI 41.3
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
== END 2023-07-08 08:47 | disposition home or self-care (01) ==
PROVIDERS: PCP Family Medicine; Visit Provider Advanced Practice Midwife
DX: N95.0 Postmenopausal bleeding (principal); N90.89 Other specified noninflammatory disorders of vulva and perineum
CPT/HCPCS: 99214

== ENCOUNTER → 2023-07-08 07:52 | Outpatient (BNVA) | payer OTHER, SELFPAY | PROVIDERS: PCP Family Medicine; Visit Provider Advanced Practice Midwife ==

== ENCOUNTER 2023-07-14 14:49 | Outpatient (REF) | payer OTHER, SELFPAY ==
--- NOTE | ~2023-07-14 | US_ITS ---
EXAMINATION: US PELVIS CLINICAL INFORMATION: Postmenopausal bleeding. COMPARISON: Ultrasound pelvis 03/19/2022. TECHNIQUE: Ultrasound of the pelvis is performed using both transabdominal and transvaginal transducers along with Doppler. Transvaginal imaging is performed due to inadequate visualization transabdominally. FINDINGS: Uterus: The uterus is anteverted and anteflexed measuring 6.5 x 3.2 x 3.8 cm. The double wall endometrial thickness is 3 mm. The uterus is dorsally measuring smooth in contour and has a heterogeneous myometrial echogenicity. Two (2) small uterine predominantly submucosal fibroids are seen one measuring 0.9 x 0.6 x 0.7 cm (previously 0.8 x 0.9 x 0.7 cm) and the other measuring 1.7 x 1.1 x 1.8 cm (previously 2.1 x 2.1 x 2.2 cm). No new fibroids are seen. Adnexa: Only the right ovary was visualized, the left was not. There is normal color flow to the right ovary. There is no pelvic ascites or fluid collection. Right ovary measures 1.8 x 1.1 x 1.3 cm for a volume of 1.3 mL. US/US pelvic and transvaginal IMPRESSION: 1. Two (2) small uterine fibroids are present. 2. The endometrium is normal in thickness. 3. The left ovary was not visualized.
== END 2023-07-14 14:50 | disposition home or self-care (01) ==
LOC: HO.US 14:49
PROVIDERS: PCP Family Medicine; Visit Provider Advanced Practice Midwife
DX: N95.0 Postmenopausal bleeding (principal)
CPT/HCPCS: 76830; 76856

== ENCOUNTER 2023-07-16 12:45 | Outpatient (AMB) | payer OTHER, SELFPAY ==
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
[2023-07-16 13:13] VITALS: BP 124/68; BMI 41.3
== END 2023-07-16 14:46 | disposition home or self-care (01) ==
LOC: HO.HWS 12:45
PROVIDERS: PCP Family Medicine; Visit Provider Advanced Practice Midwife
DX: N95.0 Postmenopausal bleeding (principal); Z71.2 Person consulting for explanation of examination or test findings; D25.9 Leiomyoma of uterus, unspecified
CPT/HCPCS: 99213

== ENCOUNTER → 2023-07-16 12:45 | Outpatient (BNVA) | payer OTHER, SELFPAY | PROVIDERS: PCP Family Medicine; Visit Provider Advanced Practice Midwife ==

== ENCOUNTER 2023-07-20 12:01 | Outpatient (AMB) | payer OTHER, SELFPAY ==
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
[2023-07-20 12:09] VITALS: BP 118/70; BMI 41.3
== END 2023-07-20 13:17 | disposition home or self-care (01) ==
LOC: HO.HWS 12:01
PROVIDERS: PCP Family Medicine; Visit Provider Obstetrics & Gynecology
DX: N95.0 Postmenopausal bleeding (principal)
CPT/HCPCS: 58100; 99213

== ENCOUNTER 2023-07-20 12:01 | Outpatient (REF) | payer OTHER, SELFPAY | END 2023-07-20 12:02 | disposition home or self-care (01) | LOC: HO.LAB 12:01 | PROVIDERS: PCP Family Medicine; Visit Provider Obstetrics & Gynecology | DX: N95.0 Postmenopausal bleeding (principal) | CPT/HCPCS: 58100; 88305 ==

== ENCOUNTER 2023-07-20 15:22 | Outpatient (AMB) | payer OTHER, SELFPAY ==
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
[2023-07-20 15:47] VITALS: BP 102/62; PULSE 91; RESP 14; TEMP 36.6; O2SAT 99; BMI 41.5
== END 2023-07-20 16:31 | disposition home or self-care (01) ==
PROVIDERS: PCP Family Medicine; Visit Provider Family Medicine
DX: E13.9 Other specified diabetes mellitus without complications (principal); E66.01 Morbid (severe) obesity due to excess calories; Z68.41 Body mass index [BMI] 40.0-44.9, adult; R10.33 Periumbilical pain; M25.562 Pain in left knee
CPT/HCPCS: 83036; 99214

== ENCOUNTER 2023-07-23 08:40 | Outpatient (REF) | payer OTHER, SELFPAY ==
--- NOTE | ~2023-07-23 | US_ITS ---
EXAMINATION: US ABDOMEN LIMITED CLINICAL INFORMATION: Periumbilical pain. COMPARISON: Limited abdominal ultrasound 03/30/2023. TECHNIQUE: Real-time imaging of the region of concern in the periumbilical region. Valsalva maneuver is performed. FINDINGS: The cutaneous, subcutaneous, muscular and fascial planes are unremarkable. No hernia defect is seen. There is no mass or fluid collection. No lymphadenopathy is noted. There is no foreign body. US/US abdomen limited IMPRESSION: Unremarkable examination.
== END 2023-07-23 08:41 | disposition home or self-care (01) ==
LOC: HO.HMGCX 08:40
PROVIDERS: PCP Family Medicine; Visit Provider Family Medicine
DX: R10.33 Periumbilical pain (principal)
CPT/HCPCS: 76705

== ENCOUNTER 2023-08-05 10:43 | Outpatient (AMB) | payer OTHER, SELFPAY ==
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
== END 2023-08-05 13:40 | disposition home or self-care (01) ==
LOC: HO.HWS 10:43
PROVIDERS: PCP Family Medicine; Visit Provider Obstetrics & Gynecology
DX: D25.9 Leiomyoma of uterus, unspecified (principal); N95.0 Postmenopausal bleeding
CPT/HCPCS: 99211

== ENCOUNTER → 2023-08-05 10:43 | Outpatient (BNVA) | payer OTHER, SELFPAY | PROVIDERS: PCP Family Medicine; Visit Provider Obstetrics & Gynecology ==

== ENCOUNTER 2023-08-09 15:45 | Outpatient (AMB) | payer OTHER, SELFPAY ==
[2023-08-09 15:46] VITALS: BMI 41.5
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
== END 2023-08-09 16:37 | disposition home or self-care (01) ==
PROVIDERS: PCP Family Medicine; Visit Provider Surgery
DX: Z80.3 Family history of malignant neoplasm of breast (principal); K64.8 Other hemorrhoids
CPT/HCPCS: 46600; 99213

== ENCOUNTER → 2023-08-09 15:45 | Outpatient (BNVA) | payer OTHER, SELFPAY | PROVIDERS: PCP Internal Medicine; Visit Provider Surgery | DX: K64.8 Other hemorrhoids (principal); K64.4 Residual hemorrhoidal skin tags; Z80.3 Family history of malignant neoplasm of breast | CPT/HCPCS: 46600 ==

== ENCOUNTER 2023-08-11 14:29 | Outpatient (AMB) | payer OTHER, SELFPAY ==
[2023-08-11 14:30] VITALS: BP 110/60; BMI 41.3
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
== END 2023-08-11 15:12 | disposition home or self-care (01) ==
LOC: HO.HWS 14:29
PROVIDERS: PCP Family Medicine; Visit Provider Obstetrics & Gynecology
DX: N95.0 Postmenopausal bleeding (principal); R10.2 Pelvic and perineal pain
CPT/HCPCS: 99213

== ENCOUNTER → 2023-08-11 14:29 | Outpatient (BNVA) | payer OTHER, SELFPAY | PROVIDERS: PCP Family Medicine; Visit Provider Obstetrics & Gynecology ==

== ENCOUNTER 2023-08-12 13:11 | Emergency (ER) | payer OTHER, SELFPAY ==
[2023-08-12 13:39] VITALS: BP 129/68; PULSE 92; RESP 19; TEMP 36.6; O2SAT 99; BMI 40.7
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
[2023-08-12 14:23] LABS: MANUAL DIFF FLAG NO
[2023-08-12 14:27] LABS: Basophils Percent Auto 0.4 % (0-2); Eosinophils Absolute Auto 0.1 X10*3/uL (0.0-0.4); Eosinophils Percent Auto 1.6 % (0-4); Hematocrit 41.3 % (37.0-47.0); Hemoglobin 13.1 g/dl (12.0-16.0); Imm Gran Abs Auto 0.02 X10*3/uL (0.00-0.03); Imm Gran Pct Auto 0.3 % (0.0-0.4); Lymphocytes Absolute Auto 1.6 X10*3/uL (1.2-4.9); Lymphocytes Percent Auto 22.7 % (20-40); Mean Corpuscular HGB Conc 31.7 g/dl (31.0-35.0); Mean Corpuscular Hemoglobin 28.7 pg (27.0-33.0); Mean Corpuscular Volume 90.4 fL (80.0-98.0); Mean Platelet Volume 10.9 fL (9.4-12.3); Monocytes Absolute Auto 0.4 X10*3/uL (0.1-1.2); Monocytes Percent Auto 5.7 % (2-11); Neutrophils Absolute Auto 4.8 x10*3/uL (2.0-8.3); Neutrophils Percent Auto 69.3 % (45-73); Platelet Count 219 X10*3/uL (160-400); Red Blood Count 4.57 X10*6/uL (4.20-5.50); Red Cell Distribution Width 13.9 % (11.0-16.0)
[2023-08-12 14:28] LABS: Appearance Urine Clear; Color Urine Yellow; Glucose Urine UA Negative (Negative); Leukocyte Esterase Urine Small (1+) (Negative); Nitrite Urine Negative (Negative); PH 7.5 (5.0-9.0); UMIC TRIGGER UACC YES; Urine Blood Negative (Negative); Urine Ketones Negative (Negative); Urine Protein Negative (Neg-Trace)
[2023-08-12 14:41] LABS: Bacteria Urine None Seen (None Seen); Hyaline Casts Urine 0-2 /LPF (0-2); RBC Urine 0-2 /HPF (0-2); Squamous Epithelial Cell Urine 0-2 /HPF (0-2); UACC Culture Trigger YES; WBC Urine 0-5 /HPF (0-5)
[2023-08-12 14:54] LABS: Alanine Aminotransferase 20 U/L (0-31); Albumin Level 4.5 g/dL (3.5-5.0); Alkaline Phosphatase 77 U/L (39-117); Anion Gap 15 (12-20); Aspartate Amino Transferase 16 U/L (5-31); Bilirubin Total 0.3 mg/dL (0.0-1.0); Blood Urea Nitrogen 14 mg/dL (9-16); Calcium 9.9 mg/dL (8.4-10.2); Carbon Dioxide 28 mmol/L (22-29); Chloride 102 mmol/L (96-108); Creatinine Clr Calc Pharmacy 108.2; Estimated Glomerular Filt Rate > 60; Glucose Random 86 mg/dL (60-115); HCG Quantitative < 2 mIU/mL; Lipase 23 U/L (8-78); Potassium 3.9 mmol/L (3.3-5.1); Sodium 141 mmol/L (135-145); Total Protein 7.5 g/dL (6.5-8.0)
[2023-08-12 18:26] LABS: Influenza A PCR NEGATIVE (Negative); Influenza B PCR NEGATIVE (Negative); Resp Syncy Virus RNA Qual PCR NEGATIVE (Negative); SARS COV2 PCR INHOUSE NEGATIVE (Negative)
[2023-08-12 19:02] VITALS: BP 120/65; PULSE 89; RESP 18; O2SAT 99
[2023-08-12 19:05] VITALS: BP 120/65; PULSE 89; RESP 18; TEMP 36.6; O2SAT 99
== END 2023-08-12 19:06 | disposition home or self-care (01) ==
PROVIDERS: Physician Assistant; Emergency Provider Student in an Organized Health Care Education/Training Program; PCP Family Medicine
DX: K58.1 Irritable bowel syndrome with constipation (principal); R10.2 Pelvic and perineal pain; F31.9 Bipolar disorder, unspecified; R10.33 Periumbilical pain; R51.9 Headache, unspecified; Z79.899 Other long term (current) drug therapy; Z03.818 Encounter for observation for suspected exposure to other biological agents ruled out
CPT/HCPCS: 0241U; 36415; 80053; 81001; 83690; 84702; 85025; 87086; 99283

== ENCOUNTER 2023-08-18 07:32 | Outpatient (AMB) | payer OTHER, SELFPAY ==
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
[2023-08-18 07:36] VITALS: BP 134/67; PULSE 93; BMI 42.0
== END 2023-08-18 09:28 | disposition home or self-care (01) ==
PROVIDERS: PCP Family Medicine; Visit Provider Physician Assistant
DX: R10.9 Unspecified abdominal pain (principal); G89.29 Other chronic pain; K64.9 Unspecified hemorrhoids; K59.01 Slow transit constipation; E13.9 Other specified diabetes mellitus without complications; E66.01 Morbid (severe) obesity due to excess calories
CPT/HCPCS: 99215

== ENCOUNTER → 2023-08-18 07:32 | Outpatient (BNVA) | payer OTHER, SELFPAY | PROVIDERS: PCP Family Medicine; Visit Provider Physician Assistant ==

== ENCOUNTER → 2023-08-20 14:44 | Outpatient (AMB) | payer OTHER, SELFPAY ==
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
== END ==
PROVIDERS: PCP Family Medicine; Visit Provider Family Medicine
DX: R10.33 Periumbilical pain (principal); K59.00 Constipation, unspecified
CPT/HCPCS: 99212

== ENCOUNTER 2023-09-14 07:58 | Outpatient (REF) | payer OTHER, SELFPAY | END 2023-09-14 07:59 | disposition home or self-care (01) | LOC: HO.MRI 07:58 | PROVIDERS: PCP Family Medicine; Visit Provider Surgery | DX: Z13.89 Encounter for screening for other disorder (principal) ==

== ENCOUNTER 2023-10-11 08:00 | Outpatient (REF) | payer SELFPAY ==
--- NOTE | 2023-10-11 10:46 | MHC.AU.HA3 ---
Hearing Instrument Follow-Up- Binaural Date of Visit: 10/11/23 Right Ear: Regulo, Model, Color, Serial Number: Nazario Patterson P70-R, #[id number], Graphite Mckoy Plane Tableman Repair Warranty: 05/24/2025 Plane Tableman Loss and Damage Warranty: 05/24/2025 [facility] Service Plan: 04/20/2023 Battery Size: Rechargeable Wreath Inspector/Slim Tube: 1M Wreath Inspector 4.0 with retention wire Earmold/Dome/CShell/SlimTip:Small Open Dome Type of Wax Guard: CeruShield Dispensed By: [facility] Date of Fittin01/16/2022 Left Ear: Regulo, Model, Color, Serial Number: Nazario Patterson P70-R, #[id number], Graphite Mckoy Plane Tableman Repair Warranty: 05/24/2025 Plane Tableman Loss and Damage Warranty: 05/24/2025 [facility] Service Plan: 04/20/2023 Battery Size: Rechargeable Wreath Inspector/Slim Tube: 1M Wreath Inspector 4.0 with retention wire Earmold/Dome/CShell/SlimTip: Small Open Dome Type of Wax Guard: CeruShield Dispensed By: [facility] Date of Fittin01/16/2022 Follow-Up Summary: Pt reports she was having an issue with one of her aids not lighting up in the process plant operator. She went on to manually turn the aid off and on and now it seems to be charging normally. Decided to come in for hearing aid check anyways as it has been quite awhile, she also notes never having changed the wax guard. Cleaned and checked both aids. Replaced domes, wax guards. Listening check positive. Tested in her process plant operator, both charging normally. Checked for firmware update, needed and completed. Pt requested paper manual, dispensed. Recommendations: Recommendations: Hearing instrument follow-up or maintenance as needed. Recommendations (Other): Suggested updated hearing test as it has been 2+ years since last HT. Advised she would need PO. Diagnosis Code(s): Primary Diagnosis: H90.3 Bilateral Sensorineural Hearing Loss Signature: Provider: Deni Darling, [facility]
== END 2023-10-11 08:01 | disposition home or self-care (01) ==
LOC: HO.HAP 08:00
PROVIDERS: Visit Provider Family Medicine
DX: Z46.1 Encounter for fitting and adjustment of hearing aid (principal); H90.3 Sensorineural hearing loss, bilateral
CPT/HCPCS: 92593

== ENCOUNTER 2023-10-20 09:15 | Outpatient (AMB) | payer OTHER, SELFPAY ==
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
== END 2023-10-20 10:20 | disposition home or self-care (01) ==
PROVIDERS: PCP Family Medicine; Visit Provider Surgery
DX: N63.20 Unspecified lump in the left breast, unspecified quadrant (principal)
CPT/HCPCS: 99441

== ENCOUNTER → 2023-10-20 09:15 | Outpatient (BNVA) | payer SELFPAY | PROVIDERS: PCP Family Medicine; Visit Provider Surgery ==

== ENCOUNTER 2023-11-03 06:17 | Outpatient (REF) | payer OTHER, SELFPAY ==
--- NOTE | ~2023-11-03 | CT_ITS ---
EXAMINATION: CT ABDOMEN AND PELVIS WITH CONTRAST CLINICAL INFORMATION: Unspecified abdominal pain COMPARISON: Ultrasound abdomen dated 07/23/2023 and 03/30/2023 TECHNIQUE: Multidetector volumetric images were obtained from the superior aspect of the liver through the pubic symphysis following administration 85 mL of Omnipaque 350 intravenous contrast. Sagittal and coronal reformatted images were obtained on the technologist's workstation. Oral contrast: No This CT examination was performed using dose optimization techniques as appropriate, variously including the following: *Automated exposure control *Adjustment of mA and/or kV according to patient size (this includes techniques or standardized protocols for targeted exams where dose is matched to indication/reason for exam; i.e. extremities or head) *Use of iterative reconstruction technique DLP: 736 mGy-cm FINDINGS: LUNG BASES: The visualized lung bases are unremarkable. LIVER, GALLBLADDER, AND BILIARY TREE: The liver is normal in size, shape, and attenuation. No focal hepatic lesion or biliary ductal dilatation is present. The gallbladder is unremarkable with no evidence of radiopaque gallstones, gallbladder wall thickening, or obvious pericholecystic inflammatory changes. PANCREAS: Unremarkable. SPLEEN: Unremarkable. ADRENAL GLANDS: Unremarkable. KIDNEYS AND URETERS: The kidneys are normal in size, shape, and attenuation. 2 mm nonobstructing renal calculus in the interpolar region of the left kidney. No hydronephrosis or hydroureter. No perinephric stranding. BLADDER: Unremarkable. GASTROINTESTINAL TRACT: Moderate stool burden. The small and large bowel are unremarkable. The appendix is not visualized but there are no secondary signs of inflammation in the right lower quadrant. ABDOMINAL WALL: No significant hernia is appreciated. LYMPH NODES: Normal. VASCULAR: Atherosclerosis aorta and its branches. No abdominal aortic aneurysm. PELVIC VISCERA: The uterus and adnexa are unremarkable. OSSEOUS STRUCTURES: No acute osseous abnormality. CT/CT abdomen pelvis w IV con IMPRESSION: Moderate stool burden. Otherwise, no acute abnormality in the abdomen or pelvis. Fleischner guidelines were followed. Electronically signed by: Jennifer Lehman MD 12/06/2023 12:21 AM EDT
[2023-11-03 07:35] LABS: Alanine Aminotransferase 16 U/L (0-31); Albumin Level 4.4 g/dL (3.5-5.0); Alkaline Phosphatase 74 U/L (39-117); Anion Gap 12 (12-20); Aspartate Amino Transferase 15 U/L (5-31); Bilirubin Total 0.5 mg/dL (0.0-1.0); Blood Urea Nitrogen 13 mg/dL (9-16); Carbon Dioxide 30 mmol/L (22-29); Chloride 102 mmol/L (96-108); Estimated Glomerular Filt Rate > 60; Glucose Random 111 mg/dL (60-115); Potassium 3.6 mmol/L (3.3-5.1); Sodium 140 mmol/L (135-145); Total Protein 6.9 g/dL (6.5-8.0)
[2023-11-03] MEDS: iohexoL 350 MG/ML 100 ML INFUS..BTL IV (09:23)
[2023-11-03] MEDS: Barium Sulfate Oral (Vanilla) 450 ML ORAL.SUSP 900 ML PO (09:24)
== END 2023-11-03 06:18 | disposition home or self-care (01) ==
LOC: HO.CT 06:17
PROVIDERS: PCP Internal Medicine; Visit Provider Family Medicine
DX: R10.9 Unspecified abdominal pain (principal); R10.2 Pelvic and perineal pain; R10.33 Periumbilical pain; G89.29 Other chronic pain; M79.89 Other specified soft tissue disorders
CPT/HCPCS: 36415; 74177; 80053; Q9967

== ENCOUNTER 2024-01-05 09:51 | Outpatient (AMB) | payer OTHER, SELFPAY ==
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
== END 2024-01-05 10:22 | disposition home or self-care (01) ==
LOC: HO.HGS 09:51
PROVIDERS: PCP Family Medicine; Visit Provider Surgery
DX: Z80.3 Family history of malignant neoplasm of breast (principal)
CPT/HCPCS: 99213

== ENCOUNTER → 2024-01-05 09:51 | Outpatient (BNVA) | payer OTHER, SELFPAY | PROVIDERS: PCP Family Medicine; Visit Provider Surgery ==

== ENCOUNTER 2024-01-26 08:48 | Outpatient (AMB) | payer OTHER, SELFPAY ==
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
[2024-01-26 08:50] VITALS: BMI 42.0
== END 2024-01-26 09:40 | disposition home or self-care (01) ==
PROVIDERS: PCP Family Medicine; Visit Provider Advanced Practice Midwife
DX: N94.89 Other specified conditions associated with female genital organs and menstrual cycle (principal); N89.8 Other specified noninflammatory disorders of vagina; L29.2 Pruritus vulvae
CPT/HCPCS: 99213

== ENCOUNTER 2024-01-26 08:48 | Outpatient (REF) | payer OTHER, SELFPAY ==
[2024-01-26 13:54] LABS: Bacterial Vaginosis PCR NEGATIVE (Negative); Candida Group PCR NOT DETECTED (Not Detect); Candida glab krusei PCR NOT DETECTED (Not Detect); Trichomonas vaginalis PCR NOT DETECTED (Not Detect)
== END 2024-01-26 08:49 | disposition home or self-care (01) ==
LOC: HO.LAB 08:48
PROVIDERS: PCP Family Medicine; Visit Provider Advanced Practice Midwife
DX: N89.8 Other specified noninflammatory disorders of vagina (principal); N94.89 Other specified conditions associated with female genital organs and menstrual cycle
CPT/HCPCS: 0352U

== ENCOUNTER → 2024-05-08 15:45 | Outpatient (BNV) | payer OTHER, SELFPAY | PROVIDERS: PCP Family Medicine; Visit Provider Radiology Diagnostic Radiology | DX: D25.9 Leiomyoma of uterus, unspecified (principal) | CPT/HCPCS: 76830; 76856 ==

== ENCOUNTER 2024-05-29 13:06 | Outpatient (REF) | payer OTHER, SELFPAY ==
--- OUTSIDE RECORDS SUMMARY | 2024-05-29 18:03 | XMS_ITS | Encounter Summary ---
Author Organization [facility] [place] [address] Care Team Providers Care Sharepoint Administrator Name Role Phone Eddie Ferrara MD Primary Care Provider Reason for Visit * Reason Onset Date Comments Letter for School/Work 04/10/2024 Encounter Details Date Type Department Care Team ([facility] st Contact Info) Description 04/10/2024 Telephone Adult Medicine [facility] [address] [place], [place] [phone] Eddie Ferrara MD [address] [place], [place] Letter for School/Work Social History Tobacco [...] care for your loved ones. For example, registered nurse maternal child or elderly care for an older adult? [...] would like this to be faxed to [phone]. Thank you documented in this encounter Plan of Treatment Upcoming Encounters Date Type Department Care Team ([facility] st Contact Info) Description 07/04/2024 11:30 AM EDT Consult Neurosurgery [facility] [address] [place] [address] Aminata Smith PA [address], [address] [place] [address] 07/19/2024 11:00 AM EDT Office Visit Adult Medicine [facility] [address] [place] [phone] Eddie Ferrara MD [address] [place] [address] documented as of this encounter Visit Diagnoses Not on filedocumented in this encounter Care Teams Sharepoint Administrator Relationship Specialty Start Date End Date Eddie Ferrara MD [address] [place] [address] PCP - General 05/06/23 documented as of this encounter
--- OUTSIDE RECORDS SUMMARY | 2024-05-29 18:03 | XMS_ITS | Clinical Summary ---
Author Organization [facility] Address [address] [place] [address] Care Team Providers Care Suction Plate Carrier Cleaner Name Role Phone Markus Dennis APRN Primary Care Provider [phone] Markus Dennis APRN Unavailable [phone] Allergies Active Allergy Reactions Criticality Noted Date [...] Vitamin D, Ergocalciferol, (VITAMIN D-2) 1.25 MG (48557 UT) capsule TAKE ONE CAPSULE BY MOUTH [...] Active -Hx Entry 0 0 7 Active [place] 3 (FISH OIL) 1200 MG Cap [place] 3 (1200MG Oral daily) Active -Hx Entry [...] Name Administration Dates Next Due COVID-19, mRNA ([employer] Pre F 2022) Monovalent, 30 mcg/0.3 ml [...] PM EDT FASTING: YES Testing Performed at: [facility], [address] [place] [address], , Animal Cruelty Investigator: Tabby Hewitt MD CLPOL#[id number] Markus Dennis APRN LABORATORY Final Resu lt [...] PM EDT FASTING: YES Testing Performed at: [facility], [address] [place] [address], [place] [address], , Animal Cruelty Investigator: Tabby Hewitt MD CLPOL#[id number] us Markus [facility] Final Resu lt [...] Recently Relevant to Health Maintenance Care Teams Suction Plate Carrier Cleaner Relationship Specialty Start Date End Date Markus Dennis APRN [address] [place] [address] PCP - General 11/09/22 Markus Dennis APRN [address] [facility] [place] [address] PCP - Backup PCP Family Medicine 05/06/23
--- OUTSIDE RECORDS SUMMARY | 2024-05-29 18:03 | XMS_ITS | Clinical Summary ---
Author Organization [facility] Address [address] [place] [address] Care Team Providers Care Econometrician Name Role Phone Unavailable Primary Care Provider [...] at bedtime. 0 Active Ergocalciferol (VITAMIN D) 15705 UNITS CAPS 0 12/18/2014 Active hydrochlorothiazide (HYDRODIURIL) [...] Health Self 1970 [address] [place] [address]
--- OUTSIDE RECORDS SUMMARY | 2024-05-29 18:03 | XMS_ITS | Clinical Summary ---
Author Organization [address] Address [address] [place] [phone] Phone Care Team Providers Care Materials Management Clerk Name Role Phone Eddie Ferrara MD Primary [...] complication, without long-term current use of insulin ([facility]) Inject 0.5 mL (0.75 mg total) under [...] 3:30 PM EST Office Visit Adult Medicine [address] [phone] Eddie Ferrara MD Other insomnia (Primary Dx); Hypertension, unspecified type; Other constipation; Type 2 diabetes mellitus with other specified complication, without long-term current use of insulin ([facility]); Other hyperlipidemia; Chronic midline low back pain, unspecified whether sciatica present 04/10/2024 Telephone Adult Medicine [address] [phone] Eddie Ferrara MD Letter for School/Work 03/20/2024 11:15 AM EST Office Visit Adult Medicine [address] [phone] Hazel Steve PA Viral illness (Primary Dx); Gastroesophageal reflux disease, unspecified whether esophagitis present; Type 2 diabetes mellitus with other specified complication, without long-term current use of insulin (CMS/HCC) 03/20/2024 Telephone Adult Medicine [address] [phone] Hazel Steve PA 03/16/2024 Telephone Adult Medicine [address] [phone] Eddie Ferrara MD Follow-up; GI Problem from [...] for your loved ones. For example, children's zoo caretaker or elderly care for an older adult? [...] Description 07/04/2024 11:30 AM EDT Consult Neurosurgery [facility] [address] [place] [phone] Aminata Smith PA [address], [address] [place] [address] 07/19/2024 11:00 AM EDT Office Visit Adult Medicine [facility] [address] [place] [address] Eddie Ferrara MD [address] [place] [address] Health Maintenance Due Date Last Done Comments [...] LAB CHEMISTRY METHOD 03/16/2024 1:48 PM EST [facility] Blood Venous blood specimen / Unknown Venipuncture / Unknown 03/16/2024 10:02 AM EST 03/16/2024 10:02 AM EST us Eddie Ferrara MD LAB BLOOD ORDERABLES F inal Result Performing Organization Address [facility]/ZIP Co de Phone Number [facility] [address] [place] [address], [place] [phone] * Microalbumin creatinine urine ratio (03/16/2024 10:02 AM EST) Creatinine, Urine 189.0 mg/dL LAB CHEMISTRY METHOD 03/16/2024 4:53 PM EST [facility] Microalb, Ur 11.5 0.0 - 29.0 mg/L LAB CHEMISTRY METHOD 03/16/2024 4:53 PM EST [facility] Microalb/Creat Ratio 6 <30 mg/g creat LAB CHEMISTRY METHOD 03/16/2024 4:53 PM EST [facility] Urine Urine specimen obtained by clean catch procedure / Unknown Non-blood Collection / Unknown 03/16/2024 10:02 AM EST 03/16/2024 10:02 AM EST us Eddie Ferrara MD LAB URINE ORDERABLES F inal Result Performing Organization Address City/[facility]/ZIP Co de Phone Number [facility] [address] [place] [address], [place] [phone] * (ABNORMAL) Hemoglobin A1c (03/16/2024 10:02 AM EST) Hemoglobin A1C 6.6(H) <6.5 % LAB CHEMISTRY METHOD 03/16/2024 2:25 PM EST [facility] Mean Bld Glu Estim. 143 mg/dL LAB CHEMISTRY METHOD 03/16/2024 2:25 PM EST [facility] Blood Venous blood specimen / Unknown Venipuncture / Unknown 03/16/2024 10:02 AM EST 03/16/2024 10:02 AM EST us Eddie Ferrara MD LAB BLOOD ORDERABLES F inal Result [facility] [address] [place] [address], * (ABNORMAL) Comprehensive metabolic panel (03/16/2024 10:02 AM EST) Sodium 136 133 - 145 mmol/L LAB CHEMISTRY METHOD 03/16/2024 1:24 PM [facility] Potassium 3.8 3.5 - 5.5 mmol/L LAB CHEMISTRY METHOD 03/16/2024 1:24 PM [facility] Chloride 99 96 - 110 mmol/L LAB CHEMISTRY METHOD 03/16/2024 1:24 PM [facility] CO2 29 21 - 32 mmol/L LAB CHEMISTRY METHOD 03/16/2024 1:24 PM [facility] Anion Gap 8 3 - 11 LAB CHEMISTRY METHOD 03/16/2024 1:24 PM [facility] Glucose 119(H) 70 - 100 mg/dL LAB CHEMISTRY METHOD 03/16/2024 1:24 PM [facility] BUN 9 5 - 25 mg/dL LAB CHEMISTRY METHOD 03/16/2024 1:24 PM [facility] Creatinine 0.74 0.50 - 1.10 mg/dL LAB CHEMISTRY METHOD 03/16/2024 1:24 PM [facility] eGFR 96 >=60 mL/min/1. 73m2 LAB CHEMISTRY METHOD 03/16/2024 1:24 PM [facility] Comment:Calculation based on the??Chronic Kidney Disease Epidemiology Collaboration (CKD-EPI) equation refit??without adjustment for race. BUN/Creatinine Ratio 12.2 LAB CHEMISTRY METHOD 03/16/2024 1:24 PM [facility] Calcium 10.0 8.5 - 10.5 mg/dL LAB CHEMISTRY METHOD 03/16/2024 1:24 PM [facility] AST (SGOT) 15 10 - 42 unit/L LAB CHEMISTRY METHOD 03/16/2024 1:24 PM [facility] ALT (SGPT) 32 10 - 60 unit/L LAB CHEMISTRY METHOD 03/16/2024 1:24 PM [facility] Alkaline Phosphatase 98 42 - 121 unit/L LAB CHEMISTRY METHOD 03/16/2024 1:24 PM [facility] Total Protein 7.2 6.0 - 8.0 g/dL LAB CHEMISTRY METHOD 03/16/2024 1:24 PM [facility] Albumin 4.4 3.2 - 5.0 g/dL LAB CHEMISTRY METHOD 03/16/2024 1:24 PM [facility] Total Bilirubin 0.5 0.0 - 1.4 mg/dL LAB CHEMISTRY METHOD 03/16/2024 1:24 PM [facility] Blood Venous blood specimen / Unknown Venipuncture / Unknown 03/16/2024 10:02 AM EST 03/16/2024 10:02 AM EST Eddie Ferrara MD LAB BLOOD ORDERABLES F inal Result [facility] [address] [place] [address], from Last 3 Months Insurance [employer] Care Teams Materials Management Clerk Relationship Specialty Start Date End Date Eddie Ferrara MD [address] [place] [address] PCP - General 05/06/23
[2024-05-30 11:49] LABS: CT PCR NOT DETECTED (Not Detect.); NG PCR NOT DETECTED (Not Detect.)
[2024-05-30 14:59] LABS: Bacterial Vaginosis PCR NEGATIVE (Negative); Candida Group PCR NOT DETECTED (Not Detect); Candida glab krusei PCR NOT DETECTED (Not Detect); Trichomonas vaginalis PCR NOT DETECTED (Not Detect)
== END 2024-05-29 13:07 | disposition home or self-care (01) ==
LOC: HO.LNP 13:06
PROVIDERS: Visit Provider Obstetrics & Gynecology
DX: R10.2 Pelvic and perineal pain (principal)
CPT/HCPCS: 81515; 87491; 87591

== ENCOUNTER 2024-05-29 13:06 | Outpatient (AMB) | payer OTHER, SELFPAY ==
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
--- OUTSIDE RECORDS SUMMARY | 2024-05-29 14:55 | XMS_ITS | Clinical Summary ---
Author Organization [facility] Address [address] [place] [address] Care Team Providers Care Technical Advisor Name Role Phone Unavailable Primary Care Provider Unavailabl e Allergies Active Allergy Reactions Criticality Noted Date Comments Codeine Nausea Only 09/28/2014 Medications Medication Sig Dispensed Refills Start Date End Date Status budesonide (PULMICORT) 1 MG/2ML nebulizer solution Pulmicort SUSP Refills: 0 Active 0 Active lisinopril (PRINIVIL,ZESTRIL) 2.5 MG tablet Take 2.5 mg by mouth daily. 0 Active metFORMIN (GLUCOPHAGE) 500 MG tablet Take 1,000 mg by mouth 2 (two) times a day with meals. 0 Active aspirin EC 81 MG tablet Take 81 mg by mouth daily. 0 Active Triamcinolone Acetonide (NASACORT ALLERGY 24HR NA) spray or apply inside Nose. 0 Active Melatonin 1 MG TABS tablet Take 1 mg by mouth every night at bedtime. 0 Active Ergocalciferol (VITAMIN D) 88119 UNITS CAPS 0 12/18/2014 Active hydrochlorothiazide (HYDRODIURIL) 25 MG tablet 0 12/03/2014 Active simvastatin (ZOCOR) 20 MG tablet 0 12/18/2014 Active venlafaxine (EFFEXOR-XR) 150 MG 24 hr capsule 0 12/20/2014 Active PULMICORT FLEXHALER 180 MCG/ACT inhaler 0 02/17/2016 Activ e famciclovir (FAMVIR) 125 MG tablet TAKE ONE TABLET (125 MG TOTAL) BY MOUTH TWO TIMES A DAY. 60 tablet 3 11/20/2016 Active Active Problems Problem Noted Date Diagnosed Date Encounter for gynecological examination without abnormal finding 04/15/2016 Cervical high risk HPV (human papillomavirus) te st positive 04/15/2016 Menorrhagia 10/02/2014 Diabetes 10/02/2014 Airway hyperreactivity 09/28/2014 H/O: depression 09/28/2014 Herpes 09/28/2014 Resolved Problems Problem Noted Date Diagnosed Date Resolved Date IUD check up 01/10/2015 04/15/2016 Encounter for IUD insertion 12/27/2014 04/18/2015 Painful urination 12/27/2014 04/15/2016 Abnormal uterine bleeding (AUB) 10/24/2014 04/15/2016 Inconclusive mammogram due to dense breasts 10/02/2014 10/24/2014 Family History Medical History Relation Name Comments Diabetes Father Heart disease Father Breast cancer Maternal Grandmother Breast cancer Mother Doing ok now Diabetes Paternal Grandmother Colon cancer Neg Hx Ovarian cancer Neg Hx Uterine cancer Neg Hx Relation Name Status Comments Brother unsure of hx Alive Father Alive Maternal Grandmother Mother Alive Paternal Grandmother Social History Tobacco Use Types Packs/Day Years Used Date Smoking Tobacco: Never Smokeless Tobacco: Never Alcohol Use Standard Drinks/Week Comments No 0 (1 standard drink = 0.6 oz pur e alcohol) Sex and Gender Information Value Date Recorded Sex Assigned at Not on file Gender Identity Not on file Sexual Orientation Not on file Last Filed Vital Signs Vital Sign Reading Time Taken Comments Blood Pressure 118/70 04/15/2016 10:33 AM EST Pulse - - Temperature - - Respiratory Rate - - Oxygen Saturation - - Inhaled Oxygen Concentration - - Weight 104.3 kg (230 lb) 04/15/2016 10:33 AM EST Height 167.6 cm (5' 6 ) 04/15/2016 10:33 AM EST Body Mass Index 37.12 04/15/2016 10:33 AM EST Plan of Treatment Health Maintenance Due Date Last Done Comments Hepatitis B Vaccines (1 of 3 - 3-dose series) 1968 Hepatitis C Screening 1968 COVID-19 Vaccine (#1) 1968 Pneumococcal Vaccine (1 of 2 - PCV) 1974 DTap / Tdap / Td (1 - Tdap) 1987 Colon Cancer Screening (Colonoscopy) 2013 Depression Screening 04/15/2017 04/15/2016 Preventative Health Evaluation 04/15/2017 04/15/2016, 10/02/2014 Breast Cancer Screening (Mammogram) 2018 Shingrix-Zoster Vaccine (1 o f 2) 2018 Cervical Cancer Screening (Pap Smear) 04/15/2019 04/15/2016, 04/15/2016, 10/02/2014 Influenza Vaccine (#1) 2023 RSV Ped < 20 months Aged Out No longe r eligible based on patient's age to complete this topic [facility] Self 1970 [address] [place] [id number]
--- OUTSIDE RECORDS SUMMARY | 2024-05-29 14:55 | XMS_ITS | Clinical Summary ---
Author Organization [address] Address [address] [place] [phone] Phone Care Team Providers Care Upper Trimmer Name Role Phone Eddie Ferrara MD Primary Care Provider Allergies Active Allergy Reactions Criticality Noted Date Comments Codeine Nausea Only 09/17/2009 Reactions: GI Upset , Reactions: Nausea Lactose 10/18/2023 Medications freestyle (FreeStyle Lancets) 28 gauge lancets Active glucose blood test strip 1 each. Active azelaic acid (FINACEA) 15 % gel Apply topically. Active albuterol HFA (PROAIR HFA ; PROVENTIL HFA ; VENTOLIN HFA) 90 mcg/actuation inhaler Inhale 2 puffs by mouth every 4 (four) hours if needed. Active meloxicam (MOBIC) 15 mg tablet Take 1 tablet (15 mg total) by mouth 1 (one) time each day if needed. Active magnesium oxide (MAG-OX) 400 mg (241.3 elemental magnesium) tablet Take 1 tablet (400 mg total) by mouth 1 (one) time each day. 12/13/19 24 Active cholecalcifero l (VITAMIN D-3) 50 mcg (2,000 unit) capsule Take 1 capsule (2,000 Units total) by mouth 1 (one) time each day. Active budesonide (PULMICORT) 180 mcg/actuation inhaler Inhale 1 puff by mouth. Active lidocaine (LIDODERM) 5 % patch Place 1 patch on the skin. Active polyethylene glycol (MIRALAX) 17 gram packet Take 17 g by mouth. Active venlafaxine XR (EFFEXOR-XR) 150 mg 24 hr capsule 12/21/19 15 Active tacrolimus (PROTOPIC) 0.1 % ointment Apply topically 2 (two) times a day. Active busPIRone (BUSPAR) 5 mg tablet Take 1 tablet (5 mg total) by mouth 2 (two) times a day. 03/14/20 24 Active psyllium (METAMUCIL) 0.52 gram capsule Take 1 capsule (520 mg total) by mouth 1 (one) time each day. Active tiZANidine (ZANAFLEX) 2 mg capsule Take 1 capsule (2 mg total) by mouth 3 (three) times a day. Active multivitamin with minerals tablet Take 1 tablet by mouth 1 (one) time each day. Active glucosamine-ch ondroitin 500-400 mg tablet Take 1 tablet by mouth 3 (three) times a day. Active aspirin 81 mg EC tablet Take 1 tablet (81 mg total) by mouth 1 (one) time each day. Active Trulicity 0.75 mg/0.5 mL pen injector injectionIndic ations:Type 2 diabetes mellitus with other specified complication, without long-term current use of insulin ([facility]) Inject 0.5 mL (0.75 mg total) under the skin every 7 (seven) days. 3 mL 3 04/17/19 25 Active hydroCHLOROthi azide (HYDRODIURIL) 25 mg tablet Take 1 tablet (25 mg total) by mouth 1 (one) time each day. 90 each 04/17/19 25 Active lisinopriL (PRINIVIL,ZEST RIL) 2.5 mg tablet Take 1 tablet (2.5 mg total) by mouth 1 (one) time each day. 90 each 04/17/19 25 Active metFORMIN (GLUCOPHAGE) 500 mg tablet Take 1 tablet (500 mg total) by mouth 2 (two) times a day with meals. 180 each 04/17/19 25 Active omeprazole (PriLOSEC) [address] capsule Take 1 capsule (20 mg total) by mouth 1 (one) time each day. Do not crush or chew. 90 each 04/17/19 25 Active simvastatin (ZOCOR) 20 mg tablet Take 1 tablet (20 mg total) by mouth at bedtime. 90 each 04/17/19 25 Active cetirizine (ZyrTEC) 10 mg tablet Take 1 tablet (10 mg total) by mouth 1 (one) time each day. 90 each 1 04/17/19 25 Active zolpidem (AMBIEN) 5 mg tablet TAKE 1 TABLET BY MOUTH EVERY DAY AT BEDTIME NEEDED FOR INSOMNIA 28 tablet 05/11/19 25 Active zolpidem (AMBIEN) 5 mg tablet Take 1 tablet (5 mg total) by mouth at bedtime as needed. 025 Discontinued Active Problems Problem Noted Date Diagnosed Date Rosacea 10/18/2023 Uses hearing aid 10/18/2023 Other insomnia 10/18/2023 Other constipation 10/18/2023 Other hyperlipidemia 10/18/2023 Hypertension 10/18/2023 Genital herpes simplex 10/18/2023 Depression 10/18/2023 Bipolar disease, chronic 10/18/2023 Cervical high risk HPV (human papillomavirus) te st positive 04/15/2016 Diabetes mellitus 10/02/2014 Herpes 09/28/2014 Airway hyperreactivity 09/28/2014 Encounters Date Type Department Care Team Description 04/17/2024 3:30 PM EST Office Visit Adult Medicine [address] [phone] Eddie Ferrara MD Other insomnia (Primary Dx); Hypertension, unspecified type; Other constipation; Type 2 diabetes mellitus with other specified complication, without long-term current use of insulin ([facility]); Other hyperlipidemia; Chronic midline low back pain, unspecified whether sciatica present 04/10/2024 Telephone Adult Medicine [address] [phone] Eddie Ferrara MD Letter for School/Work 03/20/2024 11:15 AM EST Office Visit Adult Medicine [address] [phone] Hazel Steve PA Viral illness (Primary Dx); Gastroesophageal reflux disease, unspecified whether esophagitis present; Type 2 diabetes mellitus with other specified complication, without long-term current use of insulin (CMS/HCC) 03/20/2024 Telephone Adult Medicine [address] [phone] Hazel Steve PA 03/16/2024 Telephone Adult Medicine [address] [phone] Eddie Ferrara MD Follow-up; GI Problem from Last 3 Months Immunizations Name Administration Dates Next Due Pfizer SARS-CoV-2 COVID-19, mRNA, LNP-S, preservative free 01/24/2021,07/01/2020,06/10/2020 Pneumococcal polysaccharide 23 valent (Pneumovax 23) 2yo and older 12/17/2015 Td Tetanus diptheria (Tdvax) 7yo and older 01/04 Tdap Tetanus diptheria acell ular pertussis (Boostrix; Adacel) 7yo and older 01/24/2019 Zoster recombinant (Shingrix ) 19yo and older 09/20/2021,03/15/2021 Social History Tobacco Use Types Packs/Day Years Used Date Smoking Tobacco: Never Smokeless Tobacco: Never Tobacco Cessation:Counseling Given: Not Answered Housing Instability Answer Date Recorde d Are you worried that in the next 2 months you may not have stable housing? No 04/17/2024 Food Access & Nutrition Answer Date Rec orded Do you have access to a vari ety of food including fruits and vegetables? Yes 04/17/2024 Health Literacy Answer Date Recorded How often do you need to hav e someone help you when you read instructions, pamphlets, or other written material from your doctor or pharmacy? Never 04/17/2024 Caregiver: How often do you need to have someone help you when you read instructions, pamphlets, or other written material from your doctor or pharmacy? Not on file 04/17/2024 Financial Risk Answer Date Recorded How hard is it for you to pa y for the very basics like food, housing, medical care, and air conditioning / heating? Not very hard 04/17/2024 Transportation Answer Date Recorded Has the lack of transportati on kept you from meetings, work, or from getting things needed for daily living? No Has the lack of transportati on kept you from medical appointments or from getting medications? No 04/17/2024 Social Isolation Answer Date Recorded How often do you feel lonely or isolated from th ose around you? Never 04/17/2024 Food Risk Answer Date Recorded Within the past 12 months we worried whether our food would run out before we got money to buy more. Never true 04/17/2024 Within the past 12 months th e food we bought just didn't last and we didn't have money to get more. Never true 04/17/2024 Dependent Care Answer Date Recorded Do you need help finding or paying for care for your loved ones. For example, children's tutor nursery or elderly care for an older adult? No 04/17/2024 Education Answer Date Recorded Do you think completing more education or training, like finishing a GED, going to college, or learning a trade, would be helpful for you? No 04/17/2024 Employment and Income Answer Date Recor ded During the last four weeks, have you been actively looking for work? No 04/17/2024 Living Situation Answer Date Recorded What is your living situation? 0 04/17/2024 Comments Unknown Sex and Gender Information Value Date Recorded Sex Assigned at Not on file Legal Sex Female 1:08 PM EST Gender Identity Not on file Sexual Orientation Not on file Obstetrics History Last Filed Vital Signs Vital Sign Reading Time Taken Comments Blood Pressure 123/78 04/17/2024 3:43 PM EST Pulse 93 04/17/2024 3:43 PM EST Temperature 36 ??C (96.8 ??F) 04/17/2024 3:43 PM EST Respiratory Rate 12 04/17/2024 3:43 PM EST Oxygen Saturation - - Inhaled Oxygen Concentration - - Weight 117 kg (257 lb) 04/17/2024 3:43 PM EST Height 170.2 cm (5' 7 ) 04/17/2024 3:43 PM EST Body Mass Index 40.25 04/17/2024 3:43 PM EST Plan of Treatment Upcoming Encounters Date Type Department Care Team (Late st Contact Info) Description 07/04/2024 11:30 AM EDT Consult Neurosurgery [facility] [address] [place] [id number] Aminata Smith PA [address], [address] [place] [address] 07/19/2024 11:00 AM EDT Office Visit Adult Medicine [facility] [address] [place] [phone] Eddie Ferrara MD [address] [place] [address] Health Maintenance Due Date Last Done Comments Hepatitis A Vaccines (1 of 2 - Risk 2-dose series) 1987 Cervical Cancer Screening: Pap Smear 1989 Pneumococcal Vaccine: 50+ Years (2 of 2 - PCV) 12/16/2016 12/17/2015 Pneumococcal Vaccine: Pediatrics (0 to 5 Years) and At-Risk Patients (6 to 64 Years) (2 of 2 - PCV) 12/16/2016 12/17/2015 Breast Cancer Screening 04/10/2018 04/10/2016 Colorectal Cancer Screening: Colonoscopy 03/03/2022 HIV Screening 03/03/2022 Diabetes: Blood Sugar Control Test (HGBA1C) 09/14/2024 03/16/2024, 10/18/2023 Diabetes: Annual Foot Exam 12/12/2024 12/13/2023 Diabetes: Annual Retina Eye Exam 01/19/2025 01/20/2024 Diabetes: Annual Urine Albumin-Creatinine Ratio (uACR) 03/16/2025 03/16/2024 Diabetes: Annual GFR (Glomerular Filtration Rate) 03/16/2025 03/16/2024, 10/18/2023 Hypertension/CHF/CAD Annual BMP Blood Test 03/16/2025 03/16/2024, 10/18/2023 Depression Screening 04/17/2025 04/17/2024 Social Influencers of Health Screening 04/17/2025 04/17/2024 Cholesterol Screening (Lipid Panel) 10/17/2028 10/18/2023 DTaP,Tdap,and Td Vaccines (3 - Td or Tdap) 01/24/2029 01/24/2019, 01/04/2007 Hepatitis B Vaccines Completed 2020, 11/16/2019, 10/18/2019, Additional history exists Zoster Vaccines Completed 09/20/2021, 03/15/2021 MMR Vaccines Aged Out 04/09/2023, 04/21/2019 No lo nger eligible based on patient's age to complete this topic Influenza Vaccine Completed 01/08/2024, , 02/06/2022, Additional history exists COVID-19 Vaccine Completed 02/11/2024, , 03/14/2022, Additional history exists Hepatitis C Screening Completed 03/16/2024 HIB Vaccines Aged Out No longer eligi ble based on patient's age to complete this topic HPV Vaccines Aged Out No longer eligi ble based on patient's age to complete this topic IPV Vaccines Aged Out No longer eligi ble based on patient's age to complete this topic Meningococcal ACWY Vaccine Aged Out N o longer eligible based on patient's age to complete this topic Meningococcal B Vacine Aged Out No lo nger eligible based on patient's age to complete this topic RSV Immunization Patients Under 20 months Aged Out No longer eligible based on patient's age to complete this topic Varicella Vaccines Aged Out No longer eligible based on patient's age to complete this topic Procedures Procedure Name Priority Date/Time Associated Diagnosis Comments HEPATITIS C ANTIBODY Routine 03/16/2024 10:02 AM EST Hypertension, unspecified type Diabetes mellitus associated with hormonal etiology (CMS/HCC) Need for hepatitis C screening test Other hyperlipidemia MICROALBUMIN CREATININE URINE RATIO Routine 03/16/2024 10:02 AM EST Hypertension, unspecified type Diabetes mellitus associated with hormonal etiology (CMS/HCC) Need for hepatitis C screening test Other hyperlipidemia HEMOGLOBIN A1C Routine 03/16/2024 10:02 AM EST Hypertension, unspecified type Diabetes mellitus associated with hormonal etiology (CMS/HCC) Need for hepatitis C screening test Other hyperlipidemia COMPREHENSIVE METABOLIC PANEL Routine 03/16/2024 10:02 AM EST Hypertension, unspecified type Diabetes mellitus associated with hormonal etiology (CMS/HCC) Need for hepatitis C screening test Other hyperlipidemia from Last 3 Months Results * Hepatitis C antibody (03/16/2024 10:02 AM EST) Hepatitis C Antibody Negative Negative LAB CHEMISTRY METHOD 03/16/2024 1:[address] [facility] Blood Venous blood specimen / Unknown Venipuncture / Unknown 03/16/2024 10:02 AM EST 03/16/2024 10:02 AM EST us Eddie Ferrara MD LAB BLOOD ORDERABLES F inal Result Performing Organization Address [facility]/ZIP Co de Phone Number [facility] [address] [place] [address], [place] [phone] * Microalbumin creatinine urine ratio (03/16/2024 10:02 AM EST) Creatinine, Urine 189.0 mg/dL LAB CHEMISTRY METHOD 03/16/2024 4:[address] [facility] Microalb, Ur 11.5 0.0 - 29.0 mg/L LAB CHEMISTRY METHOD 03/16/2024 4:[address] [facility] Microalb/Creat Ratio 6 <30 mg/g creat LAB CHEMISTRY METHOD 03/16/2024 4:[address] [facility] Urine Urine specimen obtained by clean catch procedure / Unknown Non-blood Collection / Unknown 03/16/2024 10:02 AM EST 03/16/2024 10:02 AM EST us Eddie Ferrara MD LAB URINE ORDERABLES F inal Result Performing Organization Address City/[facility]/ZIP Co de Phone Number [facility] [address] [place] [address], [place] [phone] * (ABNORMAL) Hemoglobin A1c (03/16/2024 10:02 AM EST) Hemoglobin A1C 6.6(H) <6.5 % LAB CHEMISTRY METHOD 03/16/2024 2:[address] [facility] Mean Bld Glu Estim. 143 mg/dL LAB CHEMISTRY METHOD 03/16/2024 2:[address] [facility] Blood Venous blood specimen / Unknown Venipuncture / Unknown 03/16/2024 10:02 AM EST 03/16/2024 10:02 AM EST us Eddie Ferrara MD LAB BLOOD ORDERABLES F inal Result [facility] [address] [place] [address], * (ABNORMAL) Comprehensive metabolic panel (03/16/2024 10:02 AM EST) Sodium 136 133 - 145 mmol/L LAB CHEMISTRY METHOD 03/16/2024 1:24 PM [facility] Potassium 3.8 3.5 - 5.5 mmol/L LAB CHEMISTRY METHOD 03/16/2024 1:24 PM [facility] Chloride 99 96 - 110 mmol/L LAB CHEMISTRY METHOD 03/16/2024 1:24 PM [facility] CO2 29 21 - 32 mmol/L LAB CHEMISTRY METHOD 03/16/2024 1:24 PM [facility] Anion Gap 8 3 - 11 LAB CHEMISTRY METHOD 03/16/2024 1:24 PM [facility] Glucose 119(H) 70 - 100 mg/dL LAB CHEMISTRY METHOD 03/16/2024 1:24 PM [facility] BUN 9 5 - 25 mg/dL LAB CHEMISTRY METHOD 03/16/2024 1:24 PM [facility] Creatinine 0.74 0.50 - 1.10 mg/dL LAB CHEMISTRY METHOD 03/16/2024 1:24 PM [facility] eGFR 96 >=60 mL/min/1. 73m2 LAB CHEMISTRY METHOD 03/16/2024 1:24 PM [facility] Comment:Calculation based on the??Chronic Kidney Disease Epidemiology Collaboration (CKD-EPI) equation refit??without adjustment for race. BUN/Creatinine Ratio 12.2 LAB CHEMISTRY METHOD 03/16/2024 1:24 PM [facility] Calcium 10.0 8.5 - 10.5 mg/dL LAB CHEMISTRY METHOD 03/16/2024 1:24 PM [facility] AST (SGOT) 15 10 - 42 unit/L LAB CHEMISTRY METHOD 03/16/2024 1:24 PM [facility] ALT (SGPT) 32 10 - 60 unit/L LAB CHEMISTRY METHOD 03/16/2024 1:24 PM [facility] Alkaline Phosphatase 98 42 - 121 unit/L LAB CHEMISTRY METHOD 03/16/2024 1:24 PM [facility] Total Protein 7.2 6.0 - 8.0 g/dL LAB CHEMISTRY METHOD 03/16/2024 1:24 PM [facility] Albumin 4.4 3.2 - 5.0 g/dL LAB CHEMISTRY METHOD 03/16/2024 1:24 PM [facility] Total Bilirubin 0.5 0.0 - 1.4 mg/dL LAB CHEMISTRY METHOD 03/16/2024 1:24 PM [facility] Blood Venous blood specimen / Unknown Venipuncture / Unknown 03/16/2024 10:02 AM EST 03/16/2024 10:02 AM EST Eddie Ferrara MD LAB BLOOD ORDERABLES F inal Result [facility] [address] [place] [address], from Last 3 Months Insurance [employer] Care Teams Upper Trimmer Relationship Specialty Start Date End Date Eddie Ferrara MD [address] [place] [address] PCP - General 05/06/23
--- OUTSIDE RECORDS SUMMARY | 2024-05-29 14:55 | XMS_ITS | Clinical Summary ---
Author Organization [facility] Address [address] [place] [address] Care Team Providers Care Scrap Crane Operator Name Role Phone Markus Dennis APRN Primary Care Provider [phone] Markus Dennis APRN Unavailable [phone] Allergies Active Allergy Reactions Criticality Noted Date Comments Codeine 09/17/2009 Reactions: GI Upset , Reactions: Nausea Medications Ferrous Sulfate (Iron) 325 (65 Fe) MG tablet TAKE 1 TABLET DAILY. 0 7 Active Lurasidone HCl (Latuda) tablet Take 1 tablet daily tablet 0 7 Active LORazepam (ATIVAN) 0.5 MG tablet TAKE 1 TABLET Bedtime 40 tablet 0 7 Active Aspirin (ST JASEN) 81 MG EC tablet TAKE 1 TABLET DAILY. 90 3 3 Active BUDESONIDE, INHALATION, (Pulmicort Flexhaler) 90 MCG/ACT inhaler Pulmicort Flexhaler 90MCG/ACT, qd #0.00, starting 03/15/2008, No Refill. Active. 0 0 8 Active Mometasone Furoate (Nasonex) 50 MCG/ACT nasal spray Nasonex 50MCG/ACT, as directed #0.00, starting 03/15/2008, No Refill. Active. 0 0 8 Active Simvastatin (ZOCOR) 20 MG tablet TAKE ONE TABLET BY MOUTH ONCE DAILY IN THE EVENING 30 1 0 Active Lisinopril (PRINIVIL,ZESTR IL) 2.5 MG tablet TAKE ONE TABLET BY MOUTH ONCE DAILY 90 0 3 Active metFORMIN HCl (GLUCOPHAGE) 500 MG tablet TAKE TWO TABLETS BY MOUTH TWICE DAILY 360 0 3 Active BUDESONIDE, INHALATION, (Pulmicort Flexhaler) 180 MCG/ACT inhaler INHALE TWO PUFFS BY MOUTH TWICE DAILY, RINSE MOUTH AFTER USE. 1 0 4 Active Venlafaxine HCl ER (EFFEXOR-XR) 150 MG 24 hr capsule TAKE ONE CAPSULE BY MOUTH ONCE DAILY 90 0 4 Active Albuterol (ProAir HFA) 90 mcg/ACT inhaler INHALE 2 PUFFS EVERY 4 HOURS NEEDED 1 3 5 Active hydroCHLOROthia zide (HYDRODIURIL) 25 MG tablet TAKE ONE TABLET BY MOUTH ONCE DAILY 90 0 5 Active Glucose Blood (CAMILLE CONTOUR NEXT TEST) test strip TEST ONCE DAILYDX:E11.9 50 2 5 Active SITagliptin Phosphate (Januvia) 100 MG tablet TAKE ONE TABLET BY MOUTH ONCE DAILY 90 0 6 Active Pioglitazone HCl (ACTOS) 30 MG tablet TAKE 1 TABLET BY MOUTH EVERY DAY 90 2 7 Active Vitamin D, Ergocalciferol, (VITAMIN D-2) 1.25 MG (92966 UT) capsule TAKE ONE CAPSULE BY MOUTH ONCE A WEEK 4 0 7 Active Gabapentin (NEURONTIN) 300 MG capsule TAKE 1 CAPSULE 3 TIMES DAILY. 90 3 7 Active Venlafaxine HCl ER 150 MG TABLET SR 24 HR 24 hr tablet Venlafaxine HCl ER (150MG Oral daily) Active -Hx Entry 0 0 7 Active Aspirin (Aspirin EC Low Strength) 81 MG EC tablet Aspirin EC Low Strength (81MG Oral) Active -Hx Entry 0 0 7 Active [place]cton 3 (FISH OIL) 1200 MG Cap Brocton 3 (1200MG Oral daily) Active -Hx Entry 0 0 7 Active Ferrous Sulfate (Iron) 325 (65 Fe) MG tablet Iron (65MG Oral daily) Active -Hx Entry 0 0 7 Active POLYCARBOPHIL CALCIUM (FiberCon) 625 MG tablet FiberCon (625MG 2 Oral daily) Active -Hx Entry 0 0 7 Active MetFORMIN HCl (FORTAMET) 500 MG 24 hr tablet MetFORMIN HCl ER (OSM) (500MG Oral) Active -Hx Entry 0 0 7 Active Probiotic (FLORASTOR) 250 MG capsule Probiotic (250MG Oral daily) Active -Hx Entry 0 0 7 Active Active Problems Problem Noted Date Diagnosed Date Obesity (BMI 30-39.9) 09/23/2018 Overview (05/09/2023): Onset: 03/15/2008; Description: Sleep Medicine Migration - Source Name: Obesity (BMI 30-39.9) H/O fibromyalgia 09/23/2018 Overview (05/09/2023): Description: Sleep Medicine Migration - Source Name: H/O fibromyalgia Moderate depressive disorder 09/23/2018 Overview (05/09/2023): Onset: 03/15/2008; Description: Sleep Medicine Migration - Source Name: Depressive disorder, rcr, moderate Daytime hypersomnia 09/23/2018 Overview (05/09/2023): Onset: 03/15/2008; Description: Sleep Medicine Migration - Source Name: Daytime hypersomnia Allergic rhinitis 09/23/2018 Overview (05/09/2023): Description: Sleep Medicine Migration - Source Name: Allergic rhinitis Hypoxemia 09/23/2018 Overview (05/09/2023): Description: Sleep Medicine Migration - Source Name: Hypoxemia Chronic insomnia 09/23/2018 Overview (05/09/2023): Onset: 03/15/2008; Description: Sleep Medicine Migration - Source Name: Chronic insomnia Bipolar affective 09/23/2018 Overview (05/09/2023): Description: Sleep Medicine Migration - Source Name: Bipolar affective Shift work sleep disorder 09/23/2018 Overview (05/09/2023): Description: Sleep Medicine Migration - Source Name: Shift work sleep disorder Sleep related hypoxia 09/23/2018 Overview (05/09/2023): Description: Sleep Medicine Migration - Source Name: Sleep related hypoxia Insomnia 12/10/2016 Lumbago 05/30/2016 Shoulder pain, left 04/09/2016 Dermatitis 01/08/2016 Back pain, thoracic 01/11/2015 Lower back pain 01/11/2015 Stress incontinence, female 11/15/2014 Urinary frequency 11/15/2014 Bipolar disorder 10/11/2014 Peripheral neuropathy 09/12/2014 Leg cramping 08/22/2014 SOB (shortness of breath) 06/29/2014 Nasal congestion 06/29/2014 Asthma exacerbation 06/29/2014 Migraine headache 04/20/2014 Liver lesion, left lobe 02/21/2014 Obesity 02/21/2014 Chest pain 02/21/2014 Low ferritin level 12/06/2013 Skin lesion 11/13/2013 Fatigue 11/06/2013 Arthralgia of multiple joints 11/06/2013 Diarrhea 11/06/2013 Edema 08/21/2013 Type 2 diabetes mellitus 07/14/2012 Tingling 04/27/2012 Plantar fasciitis 04/06/2012 Leg swelling 04/06/2012 Never a smoker 04/29/2011 Hyperlipidemia 04/29/2011 Inconclusive mammogram due to dense breasts 04/2010 Stress incontinence in female 07/30/2010 Vitamin B12 deficiency 07/30/2010 Seizure disorder 09/17/2009 Congenital lactase deficiency 09/17/2009 Obstructive sleep apnea 09/17/2009 Fatty liver 09/17/2009 Depression 09/17/2009 Vitamin D deficiency 09/17/2009 Asthma 09/17/2009 Impaired fasting glucose 09/17/2009 Fibromyalgia 09/17/2009 Immunizations Name Administration Dates Next Due COVID-19, mRNA ([employer] Pre F 2022) Monovalent, 30 mcg/0.3 ml 01/24/2021,07/01/2020,06/10/2020 Covid-19, mRNA (Pfizer Pre F 2022) Bivalent, 30 mcg/0.3 ml faustina-sucrose (12+) dose 03/14/2022 Covid-19, mRNA (Pfizer Pre F 2022) Monovalent, 30 mcg/0.3 ml faustina-sucrose (12+) 07/19/2021 Hep B (adult) 2020, 0,10/18/2019, 016 Hep B (pedi) 08/12/2016 Influenza (SEASONAL) - 11/26/2016,12/17/2015,12/2014 Influenza,injectable,quad,Prsrv Fr 12/29/2018, Influenza,recombinant,quad,i njectabl e,Prsrv Fr 02/07/2023,02/06/2022,01/10/2021, 020 MMR 04/09/2023,04/21/2019 PPV23 (Pneumovax) 12/17/2015 Td (adult), adsorbed 01/04/2007 Tdap 01/24/2019 Zoster (Shingrix) 09/20/2021,03/15/2021 Family History Medical History Relation Name Comments Diabetes Father type 2 diabetes mellitus : Father Hypertension Father hypertension : Father Lipid/Cholesterol Abnormality Father hyperlipidemia : Mother, Father Cancer - Breast Maternal grandmother katie gnant neoplasm of breast : Mother, Maternal Grandmother Cancer - Breast Mother malignant ne oplasm of breast : Mother, Maternal Grandmother Lipid/Cholesterol Abnormality Mother hyperlipidemia : Mother, Father Thyroid Disorder Mother thyroid dis ease : Mother Relation Name Status Comments Father Maternal grandmother Mother Social History Tobacco Use Types Packs/Day Years Used Date Smoking Tobacco: Never Assessed Comments:Smoking Status:No c urrent tobacco use Comments Unknown Sex and Gender Information Value Date Recorded Sex Assigned at Not on file Legal Sex Female 9:06 PM EDT Gender Identity Not on file Sexual Orientation Not on file Last Filed Vital Signs Vital Sign Reading Time Taken Comments Blood Pressure 118/78 12/31/2016 10:58 AM EDT Pulse 89 12/31/2016 10:58 AM EDT Temperature 36.6 ??C (97.8 ??F) 12/31/2016 1 0:58 AM EDT Respiratory Rate 16 12/31/2016 10:5 8 AM EDT Oxygen Saturation 95% 12/10/2016 10: 55 AM EDT Inhaled Oxygen Concentration - - Weight 98.9 kg (217 lb 15.9 oz) 017 10:58 AM EDT Height 169.5 cm (5' 6.75 ) 12/31/2016 1 0:58 AM EDT Body Mass Index 34.4 12/31/2016 10:58 AM EDT Plan of Treatment Health Maintenance Due Date Last Done Comments Hepatitis C Screening 1968 Pap Smear 1984 Microalbumin 1986 Mammogram/Breast Imaging 04/10/2017 017, 05/14/2015, 12/13/2014, Additional history exists GFR 11/11/2017 11/11/2016, 08/03, 04/07/2016, Additional history exists LDL Cholesterol 11/11/2017 11/11/2016, 08/03, 04/07/2016, Additional history exists Pneumococcal 50+ years (2 of 2 - PCV) 2018 12/17/2015 Eye/Retina Exam 09/02/2018 09/02/2016, 08/03, 05/25/2013 COVID-19 Vaccine ( season) 2023 03/14/2022, 07/19/2021, 01/24/2021, Additional history exists Influenza (#1) 2023 02/07/2023, 11/0 07/2021, 01/10/2021, Additional history exists DTaP/Tdap/Td (2 - Td or Tdap) 01/24/2029 01/24/2019, 01/04/2007 Hep B Completed 2020, 11/03, 10/18/2019, Additional history exists Zoster (Shingrix) Completed 09/20/2021, 03/15/2021 HPV Vaccine Aged Out No longer eligi ble based on patient's age to complete this topic Hep A Aged Out No longer eligi ble based on patient's age to complete this topic Hib Aged Out No longer eligi ble based on patient's age to complete this topic Meningococcal ACWY Aged Out No longer eligible based on patient's age to complete this topic Procedures Procedure Name Priority Date/Time Associated Diagnosis Comments COMPREHENSIVE METABOLIC PANEL Routine 11/11/2016 8:51 AM EDT LIPID PANEL, PLASMA Routine 11/11/2016 8 :51 AM EDT COMPREHENSIVE EYE EXAM Routine 7 1:33 PM EDT SCREENING MAMMOGRAPHY BILATERAL, 2 VIEWS EACH BREAST, INCLUDING CAD 04/10/2016 3:58 PM EST from Last 3 Months or Most Recently Relevant to Health Maintenance Results * (ABNORMAL) LIPID PANEL, PLASMA (11/11/2016 8:51 AM EDT) Cholesterol 119 0 - 199 mg/dL [facility] Triglyceride 112 0 - 150 mg/dL [facility] VLDL Cholesterol 22 5 - 40 mg/dL [facility] CONVERSION[facility] HDL Cholesterol 32(L) 50 - 80 mg/dL [facility] LDL Cholesterol 65 0 - 100 mg/dL [facility] Cholesterol Non-HDL 87 0 - 130 mg/dl [facility] CHOL/HDL Ratio 3.7 [facility] CONVERSIONS 11/11/2016 8:51 AM EDT Narrative PHCT CONVERSIONS - 11/11/2016 9:18 PM EDT FASTING: YES Testing Performed at: [facility], [address] [place] [address], , Meter Repair Shop Supervisor: Tabby Hewitt MD CLPOL#[id number] Markus Dennis APRN LABORATORY Final Resu lt PHCT CONVERSIONS * (ABNORMAL) COMPREHENSIVE METABOLIC PANEL (11/11/2016 8:51 AM EDT) Glucose 133(H) 65 - 99 mg/dL [facility] Comment:Fasting Reference In terval Urea Nitrogen Blood (BUN) 9 6 - 20 mg/dL [facility] Creatinine 0.7 0.4 - 1.1 mg/dL [facility] GFR 89 >=60 [facility] CONVERSION[facility] Comment: Units of measure for estimated Glomular Filtration Rate: ??mL/min/1.73m2. ??If patient is , multiply reported result by 1.21 eGFR calculation is only valid for adults 18-85 years of age. Stages of Chronic Kidney Disease Stage ? GFR 3 ? 30-59 4 ? 15-29 5 ? <15 Sodium 136 133 - 145 mmol/L [facility]VERSION[facility] Potassium 4.1 3.3 - 5.3 mmol/L [facility] CONVERSION[facility] Chloride 96 96 - 108 mmol/L [facility]VERSION[facility] Bicarbonate 31 22 - 32 mmol/L [facility] CONVERSION[facility] Anion gap 3 9 [facility] CONVERSIONS Calcium 8.9 8.6 - 10.5 mg/dL [facility] CONVERSION[facility] Protein Total (Serum) 6.6 6.2 - 8.2 g/dL [facility]VERSION[facility] Albumin 4.3 3.5 - 5.2 g/dl [facility] CONVERSION[facility] Alkaline phosphatase 57 35 - 105 U/L [facility] CONVERSION[facility] AST (SGOT) 20 4 - 32 U/L [facility] CONVERSION[facility] ALT (SGPT) 23 4 - 33 U/L [facility] CONVERSION[facility] Bilirubin Total 0.3 0.1 - 1.0 mg/dL [facility] CONVERSION[facility] Globulin 2.3 1.4 - 4.8 g/dl [facility] CONVERSION[facility] Albumin/Globulin 2 1 - 3 PH[facility] T CONVERSIONS Osmolality 264 253 - 285 mOsm/kg [facility] CONVERSION[facility] BUN/Creatinine Ratio 13 6 - 25 [facility] CONVERSIONS 11/11/2016 8:51 AM EDT Narrative PHCT CONVERSIONS - 11/11/2016 9:18 PM EDT FASTING: YES Testing Performed at: [facility], [address] [place] [address], [place] [address], , Meter Repair Shop Supervisor: Tabby Hewitt MD CLPOL#[id number] us Markus STONER LABORATORY Final Resu lt PHCT CONVERSIONS * COMPREHENSIVE EYE EXAM (09/02/2016 1:33 PM EDT) DILATED RETINAL EXAM Without Retinopathy [facility] CONVERSION[facility] 09/02/2016 1:33 PM EDT us Markus STONER MINOR PROCEDURE Final Resu lt PHCT CONVERSIONS * SCREENING MAMMOGRAPHY BILATERAL, 2 VIEWS EACH BREAST, INCLUDING CAD (04/10/2016 3:58 PM EST) Narrative 04/10/2016 3:58 PM EST Ordered by an unspecified provider. us Unknown Provider GENERAL IMAGING- OTHER Final Re sult from Last 3 Months or Most Recently Relevant to Health Maintenance Care Teams Scrap Crane Operator Relationship Specialty Start Date End Date Markus Dennis APRN [address] [place] [address] PCP - General 11/09/22 Markus Dennis APRN [address] [facility] [place] [address] PCP - Backup PCP Family Medicine 05/06/23
--- OUTSIDE RECORDS SUMMARY | 2024-05-29 14:55 | XMS_ITS | Encounter Summary ---
Author Organization [facility] [place] [address] Care Team Providers Care Brazer Production Line Name Role Phone Eddie Ferrara MD Primary Care Provider Reason for Visit * Reason Onset Date Comments Letter for School/Work 04/10/2024 Encounter Details Date Type Department Care Team ([facility] st Contact Info) Description 04/10/2024 Telephone Adult Medicine [facility] [address] [place], [place] [phone] Eddie Ferrara MD [address] [place], [place] Letter for School/Work Social History Tobacco Use Types Packs/Day Years Used Date Smoking Tobacco: Never Smokeless Tobacco: Never Housing Instability Answer Date Recorde d Are [...] care for your loved ones. For example, housekeeper child care or elderly care for an older adult? [...] on file Sexual Orientation Not on file documented as of this encounter Progress Notes * Liz Courtney MA - 04/10/2024 10:45 AM EST Pt has appt scheduled 04/17/24 will have to request this letter at appointment since she has never seen Dr. Ferrara * Sarah Thornton - 04/10/2024 10:23 AM EST Pt will be getting back injections for Arthritis. In order to get injection she needs to stop taking her baby asprine 7 days prior to injection. In order to book appt she needs a letter from doctor stating it would be fine for her to stop taking her baby asprine 7 days prior her appt. She would like this to be faxed to [phone]. Thank you documented in this encounter Plan of Treatment Upcoming Encounters Date Type Department Care Team ([facility] st Contact Info) Description 07/04/2024 11:30 AM EDT Consult Neurosurgery [facility] [address] [place] [phone] Aminata Smith PA [address], [address] [place] [address] 07/19/2024 11:00 AM EDT Office Visit Adult Medicine [facility] [address] [place] [phone] Eddie Ferrara MD [address] [place] [address] documented as of this encounter Visit Diagnoses Not on filedocumented in this encounter Care Teams Brazer Production Line Relationship Specialty Start Date End Date Eddie Ferrara MD [address] [place] [address] PCP - General 05/06/23 documented as of this encounter
== END 2024-05-29 14:02 | disposition home or self-care (01) ==
PROVIDERS: PCP Family Medicine; Visit Provider Obstetrics & Gynecology
DX: D25.9 Leiomyoma of uterus, unspecified (principal); N95.0 Postmenopausal bleeding; N76.0 Acute vaginitis
CPT/HCPCS: 99213

== ENCOUNTER 2024-05-29 13:06 | Outpatient (REF) | payer OTHER, SELFPAY ==
--- OUTSIDE RECORDS SUMMARY | 2024-05-29 16:02 | XMS_ITS | Clinical Summary ---
Author Organization [address] Address [address] [place] [phone] Phone Care Team Providers Care Dental Assisting Instructor Name Role Phone Eddie Ferrara MD Primary [...] complication, without long-term current use of insulin ([facility]) Inject 0.5 mL (0.75 mg [...] 3:30 PM EST Office Visit Adult Medicine [address] [phone] Eddie Ferrara MD Other insomnia (Primary Dx); Hypertension, unspecified type; Other constipation; Type 2 diabetes mellitus with other specified complication, without long-term current use of insulin ([facility]); Other hyperlipidemia; Chronic midline low back pain, unspecified whether sciatica present 04/10/2024 Telephone Adult Medicine [address] [phone] Eddie Ferrara MD Letter for School/Work 03/20/2024 11:15 AM EST Office Visit Adult Medicine [address] [phone] Hazel Steve PA Viral illness (Primary Dx); Gastroesophageal reflux disease, unspecified whether esophagitis present; Type 2 diabetes mellitus with other specified complication, without long-term current use of insulin (CMS/HCC) 03/20/2024 Telephone Adult Medicine [address] [phone] Hazel Steve PA 03/16/2024 Telephone Adult Medicine [address] [phone] Eddie Ferrara MD Follow-up; GI Problem from [...] care for your loved ones. For example, summer child caregiver or elderly care for an older adult? [...] Description 07/04/2024 11:30 AM EDT Consult Neurosurgery [facility] [address] [place] [phone] Aminata Smith PA [address], [address] [place] [address] 07/19/2024 11:00 AM EDT Office Visit Adult Medicine [facility] [address] [place] [phone] Eddie Ferrara MD [address] [place] [address] Health Maintenance Due Date Last Done Comments [...] LAB CHEMISTRY METHOD 03/16/2024 1:48 PM EST [facility] Blood Venous blood specimen / Unknown Venipuncture / Unknown 03/16/2024 10:02 AM EST 03/16/2024 10:02 AM EST us Eddie Ferrara MD LAB BLOOD ORDERABLES F inal Result Performing Organization Address [facility]/ZIP Co de Phone Number [facility] [address] [place] [address], [place] [phone] * Microalbumin creatinine urine ratio (03/16/2024 10:02 AM EST) Creatinine, Urine 189.0 mg/dL LAB CHEMISTRY METHOD 03/16/2024 4:53 PM EST [facility] Microalb, Ur 11.5 0.0 - 29.0 mg/L LAB CHEMISTRY METHOD 03/16/2024 4:53 PM EST [facility] Microalb/Creat Ratio 6 <30 mg/g creat LAB CHEMISTRY METHOD 03/16/2024 4:53 PM EST [facility] Urine Urine specimen obtained by clean catch procedure / Unknown Non-blood Collection / Unknown 03/16/2024 10:02 AM EST 03/16/2024 10:02 AM EST us Eddie Ferrara MD LAB URINE ORDERABLES F inal Result Performing Organization Address City/[facility]/ZIP Co de Phone Number [facility] [address] [place] [address], [place] [phone] * (ABNORMAL) Hemoglobin A1c (03/16/2024 10:02 AM EST) Hemoglobin A1C 6.6(H) <6.5 % LAB CHEMISTRY METHOD 03/16/2024 2:25 PM EST [facility] Mean Bld Glu Estim. 143 mg/dL LAB CHEMISTRY METHOD 03/16/2024 2:25 PM EST [facility] Blood Venous blood specimen / Unknown Venipuncture / Unknown 03/16/2024 10:02 AM EST 03/16/2024 10:02 AM EST us Eddie Ferrara MD LAB BLOOD ORDERABLES F inal Result [facility] [address] [place] [address], * (ABNORMAL) Comprehensive metabolic panel (03/16/2024 10:02 AM EST) Sodium 136 133 - 145 mmol/L LAB CHEMISTRY METHOD 03/16/2024 1:24 PM [facility] Potassium 3.8 3.5 - 5.5 mmol/L LAB CHEMISTRY METHOD 03/16/2024 1:24 PM [facility] Chloride 99 96 - 110 mmol/L LAB CHEMISTRY METHOD 03/16/2024 1:24 PM [facility] CO2 29 21 - 32 mmol/L LAB CHEMISTRY METHOD 03/16/2024 1:24 PM [facility] Anion Gap 8 3 - 11 LAB CHEMISTRY METHOD 03/16/2024 1:24 PM [facility] Glucose 119(H) 70 - 100 mg/dL LAB CHEMISTRY METHOD 03/16/2024 1:24 PM [facility] BUN 9 5 - 25 mg/dL LAB CHEMISTRY METHOD 03/16/2024 1:24 PM [facility] Creatinine 0.74 0.50 - 1.10 mg/dL LAB CHEMISTRY METHOD 03/16/2024 1:24 PM [facility] eGFR 96 >=60 mL/min/1. 73m2 LAB CHEMISTRY METHOD 03/16/2024 1:24 PM [facility] Comment:Calculation based on the??Chronic Kidney Disease Epidemiology Collaboration (CKD-EPI) equation refit??without adjustment for race. BUN/Creatinine Ratio 12.2 LAB CHEMISTRY METHOD 03/16/2024 1:24 PM [facility] Calcium 10.0 8.5 - 10.5 mg/dL LAB CHEMISTRY METHOD 03/16/2024 1:24 PM [facility] AST (SGOT) 15 10 - 42 unit/L LAB CHEMISTRY METHOD 03/16/2024 1:24 PM [facility] ALT (SGPT) 32 10 - 60 unit/L LAB CHEMISTRY METHOD 03/16/2024 1:24 PM [facility] Alkaline Phosphatase 98 42 - 121 unit/L LAB CHEMISTRY METHOD 03/16/2024 1:24 PM [facility] Total Protein 7.2 6.0 - 8.0 g/dL LAB CHEMISTRY METHOD 03/16/2024 1:24 PM [facility] Albumin 4.4 3.2 - 5.0 g/dL LAB CHEMISTRY METHOD 03/16/2024 1:24 PM [facility] Total Bilirubin 0.5 0.0 - 1.4 mg/dL LAB CHEMISTRY METHOD 03/16/2024 1:24 PM [facility] Blood Venous blood specimen / Unknown Venipuncture / Unknown 03/16/2024 10:02 AM EST 03/16/2024 10:02 AM EST Eddie Ferrara MD LAB BLOOD ORDERABLES F inal Result [facility] [address] [place] [address], from Last 3 Months Insurance [employer] Care Teams Dental Assisting Instructor Relationship Specialty Start Date End Date Eddie Ferrara MD [address] [place] [address] PCP - General 05/06/23
--- OUTSIDE RECORDS SUMMARY | 2024-05-29 16:02 | XMS_ITS | Clinical Summary ---
Author Organization [facility] Address [address] [place] [address] Care Team Providers Care Granite Countertop Installer Name Role Phone Markus Dennis APRN Primary Care Provider [phone] Markus Dennis APRN Unavailable [phone] Allergies Active Allergy Reactions Criticality Noted Date [...] Vitamin D, Ergocalciferol, (VITAMIN D-2) 1.25 MG (72059 UT) capsule TAKE ONE CAPSULE BY MOUTH [...] Active -Hx Entry 0 0 7 Active [place] 3 (FISH OIL) 1200 MG Cap Elsah 3 (1200MG Oral daily) Active -Hx Entry [...] Name Administration Dates Next Due COVID-19, mRNA ([employer] Pre F 2022) Monovalent, 30 mcg/0.3 [...] PM EDT FASTING: YES Testing [facility] at: [facility], [address] [place] [address], , Production Aide: Tabby Hewitt MD CLPOL#[id number] Markus Dennis APRN LABORATORY Final Resu lt [...] PM EDT FASTING: YES Testing Performed at: [facility], [address] [place] [address], [place] [address], , Production Aide: Tabby Hewitt MD CLPOL#[id number] us Markus STONER LABORATORY Final Resu lt [...] Recently Relevant to Health Maintenance Care Teams Granite Countertop Installer Relationship Specialty Start Date End Date Markus Dennis APRN [address] [place] [address] PCP - General 11/09/22 Markus Dennis APRN [address] [facility] [place] [address] PCP - Backup PCP Family Medicine 05/06/23
--- OUTSIDE RECORDS SUMMARY | 2024-05-29 16:02 | XMS_ITS | Clinical Summary ---
Author Organization [facility] Address [address] [place] [address] Care Team Providers Care Barber Instructor Name Role Phone Unavailable Primary Care Provider [...] at bedtime. 0 Active Ergocalciferol (VITAMIN D) 84840 UNITS CAPS 0 12/18/2014 Active hydrochlorothiazide (HYDRODIURIL) [...] Health Self 1970 [address] [place] [address]
--- OUTSIDE RECORDS SUMMARY | 2024-05-29 16:02 | XMS_ITS | Encounter Summary ---
Author Organization [place] [address] Care Team Providers Care Car Repairman Name Role Phone Eddie Ferrara MD Primary Care Provider Reason for Visit * Reason Onset Date Comments Letter for School/Work 04/10/2024 Encounter Details Date Type Department Care Team ([facility] st Contact Info) Description 04/10/2024 Telephone Adult Medicine [facility] [address] [place], [place] [phone] Eddie Ferrara MD [address] [place], [place] Letter for School/Work Social History Tobacco [...] care for your loved ones. For example, child adolescent psychiatrist or elderly care for an older adult? [...] would like this to be faxed to [phone]. Thank you documented in this encounter Plan of Treatment Upcoming Encounters Date Type Department Care Team ([facility] st Contact Info) Description 07/04/2024 11:30 AM EDT Consult Neurosurgery [facility] [address] [place] [address] Aminata Smith PA [address], [address] [place] [address] 07/19/2024 11:00 AM EDT Office Visit Adult Medicine [facility] [address] [place] [phone] Eddie Ferrara MD [address] [place] [address] documented as of this encounter Visit Diagnoses Not on filedocumented in this encounter Care Teams Car Repairman Relationship Specialty Start Date End Date Eddie Ferrara MD [address] [place] [address] PCP - General 05/06/23 documented as of this encounter
== END 2024-05-29 13:07 | disposition home or self-care (01) ==
LOC: HO.LNP 13:06
PROVIDERS: PCP Family Medicine; Visit Provider Obstetrics & Gynecology
DX: Z13.89 Encounter for screening for other disorder (principal)

== ENCOUNTER 2024-06-07 07:44 | Outpatient (REF) | payer OTHER, SELFPAY | END 2024-06-07 07:45 | disposition home or self-care (01) | LOC: HO.MAMMO 07:44 | PROVIDERS: PCP Internal Medicine; Visit Provider Surgery | DX: Z12.31 Encounter for screening mammogram for malignant neoplasm of breast (principal) | CPT/HCPCS: 77063; 77067 ==

== ENCOUNTER → 2024-06-07 08:00 | Outpatient (BNV) | payer OTHER, SELFPAY | PROVIDERS: PCP Internal Medicine; Visit Provider Internal Medicine | DX: Z12.31 Encounter for screening mammogram for malignant neoplasm of breast (principal) | CPT/HCPCS: 77063; 77067 ==

== ENCOUNTER 2024-08-17 08:00 | Outpatient (AMB) | payer OTHER, SELFPAY ==
--- OUTSIDE RECORDS SUMMARY | 2024-08-17 08:02 | XMS_ITS | Clinical Summary ---
Author Organization [facility] Address [address] [place] [address] Care Team Providers Care Vendor Management Consultant Name Role Phone Unavailable Primary Care Provider [...] at bedtime. 0 Active Ergocalciferol (VITAMIN D) 46176 UNITS CAPS 0 12/18/2014 Active hydrochlorothiazide (HYDRODIURIL) [...] Health Self 1970 [address] [place] [address]
--- OUTSIDE RECORDS SUMMARY | 2024-08-17 08:02 | XMS_ITS | Clinical Summary ---
Author Organization [facility] Address [address] [place] [address] Care Team Providers Care Nut Threader Name Role Phone Markus Dennis APRN Primary Care Provider [phone] Markus Dennis APRN Unavailable [phone] Allergies Active Allergy Reactions Criticality Noted Date [...] Vitamin D, Ergocalciferol, (VITAMIN D-2) 1.25 MG (71357 UT) capsule TAKE ONE CAPSULE BY MOUTH [...] Active -Hx Entry 0 0 7 Active [place] 3 (FISH OIL) 1200 MG Cap [place] 3 (1200MG Oral daily) Active -Hx Entry [...] Name Administration Dates Next Due COVID-19, mRNA ([employer] Pre F 2022) Monovalent, 30 mcg/0.3 ml [...] PM EDT FASTING: YES Testing Performed at: [facility], [address] [place] [address], , News Reel Cameraman: Tabby Hewitt MD CLPOL#[id number] Markus Dennis APRN LABORATORY Final Resu lt [...] PM EDT FASTING: YES Testing Performed at: [facility], [address] [place] [address], [place] [address], , News Reel Cameraman: aTbby Hewitt MD CLPOL#[id number] us Markus [facility] Final Resu lt [...] Recently Relevant to Health Maintenance Care Teams Nut Threader Relationship Specialty Start Date End Date Markus Dennis APRN [address] [place] [address] PCP - General 11/09/22 Markus Dennis APRN [address] [facility] [place] [address] PCP - Backup PCP Family Medicine 05/06/23
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
[2024-08-17 08:04] VITALS: BP 122/68; BMI 39.7
== END 2024-08-17 08:49 | disposition home or self-care (01) ==
LOC: HO.HWS 08:00
PROVIDERS: PCP Internal Medicine; Visit Provider Advanced Practice Midwife
DX: Z01.419 Encounter for gynecological examination (general) (routine) without abnormal findings (principal)
CPT/HCPCS: 99396; 99459

== ENCOUNTER → 2024-08-17 08:00 | Outpatient (BNVA) | payer OTHER, SELFPAY | PROVIDERS: PCP Internal Medicine; Visit Provider Advanced Practice Midwife ==

== ENCOUNTER 2024-09-14 07:50 | Outpatient (AMB) | payer OTHER, SELFPAY ==
--- OUTSIDE RECORDS SUMMARY | 2024-09-14 07:53 | XMS_ITS | Clinical Summary ---
Author Organization [address] Address [address] [place] [phone] Phone Care Team Providers Care Science Education Professor Name Role Phone Eddie Ferrara MD Primary Care Provider Allergies Active Allergy Reactions Criticality Noted Date Comments Codeine Nausea Only 09/17/2009 Reactions: GI Upset , Reactions: Nausea Lactose 10/18/2023 Wheat Other 07/19/2024 Brain fog, body pain,memory issues Medications freestyle (FreeStyle Lancets) 28 gauge lancets [...] (one) time each day if needed. Active cholecalciferol (VITAMIN D-3) 50 mcg (2,000 unit) capsule [...] XR (EFFEXOR-XR) 150 mg 24 hr capsule 5 Active busPIRone (BUSPAR) 5 mg tablet Take 1 tablet (5 mg total) by mouth 2 (two) times a day. 4 Active psyllium (METAMUCIL) 0.52 gram capsule Take 1 capsule (520 mg total) by mouth 1 (one) time each day. Active tiZANidine (ZANAFLEX) 2 mg capsule Take 1 capsule (2 mg total) by mouth 3 (three) times a day. Active multivitamin with minerals tablet Take 1 tablet by mouth 1 (one) time each day. Active glucosamine-cho ndroitin 500-400 mg tablet Take 1 tablet by mouth 3 (three) times a day. Active aspirin 81 mg EC tablet Take 1 tablet (81 mg total) by mouth 1 (one) time each day. Active Trulicity 0.75 mg/0.5 mL pen injector injectionIndica tions:Type 2 diabetes mellitus with other specified complication, without long-term current use of insulin ([facility] V24, [facility] V28) Inject 0.5 mL (0.75 mg total) under the skin every 7 (seven) days. 3 mL 3 5 Active hydroCHLOROthia zide (HYDRODIURIL) 25 mg tablet Take 1 tablet (25 mg total) by mouth 1 (one) time each day. 90 each 1 5 Active metFORMIN (GLUCOPHAGE) 500 mg tablet Take 1 tablet (500 mg total) by mouth 2 (two) times a day with meals. 180 each 5 Active omeprazole (PriLOSEC) [address] capsule Take 1 capsule (20 mg total) by mouth 1 (one) time each day. Do not crush or chew. 90 each 5 Active simvastatin (ZOCOR) 20 mg tablet Take 1 tablet (20 mg total) by mouth at bedtime. 90 each 1 5 Active cetirizine (ZyrTEC) 10 mg tablet Take 1 tablet (10 mg total) by mouth 1 (one) time each day. 90 each 1 5 Active magnesium oxide (MAG-OX) 400 mg (241.3 elemental magnesium) tablet TAKE 1 TABLET BY MOUTH EVERY DAY 90 tablet 1 5 Active lamoTRIgine (LaMICtal) 100 mg tablet Take 1 tablet (100 mg total) by mouth 1 (one) time each day. 5 Active LORazepam (ATIVAN) 0.5 mg tablet TAKE 1 TABLET BY MOUTH EVERY EVENING NEEDED FOR ANXIETY/INSOMNI A. DONT TAKE WITH BUSPAR OR AMBIEN Active triamcinolone (NASACORT) 55 mcg nasal inhaler Administer 2 sprays into each nostril 1 (one) time each day. Active acetaminophen (TYLENOL) 500 mg tablet Take by mouth every 6 (six) hours if needed for mild pain. Active ferrous sulfate 325 mg (65 mg iron) EC tablet Take 1 tablet (325 mg total) by mouth 3 (three) times a day with meals. Do not crush, chew, or split. Active propylene glycoL (Systane Complete) 0.6 % drops Administer into affected eye(s). Active Active Problems Problem Noted Date Diagnosed Date SILKE on CPAP 07/19/2024 Degeneration of intervertebr al disc of lumbar region with discogenic back pain and lower extremity pain 07/04/2024 Assessment & Plan (07/04/2024 4:34 PM EDT): Patient describes chronic low back pain, difficulty standing for a length of time since childhood, was told she had mild scoliosis, did not require any intervention. She comes in today describing pain in the thoracic and lumbar spine, at times radiating to the hips, right greater than left lateral legs. Sometimes she will wake up with numbness in her thighs, primarily right leg. She recalls an episode where she could not walk in 2020, had other medical issues at the time as well like sigmoid colon infection , was treated with morphine for her back pain. She feels her low back symptoms worsened around 2019, the radiating pain to the hips and thighs 2022. She has history of bilateral hip bursitis. 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 Years ago went for physical therapy. She has had multiple lumbar injections: Bilateral L4-5, L5-S1 facet injections December 2019, bursa injections 08/16/2023, bilateral L4-5, L5-S1 facet injections with >70% relief, bilateral L3-5 medial branch block 03/08/2024 with only 30% pain relief. Bilateral hip x-rays February 2023 no acute findings according to [facility]. She was diagnosed with fibromyalgia in her 20s. Patient had lumbar spine MRI 12/27/2023 at [facility] that shows L4-5 loss of disc height (DDD) and small left paracentral disc extrusion without significant nerve root impingement or central stenosis. Patient has transitional anatomy. No significant findings at other levels. We reviewed imaging from 2023 and 2021 together on the computer. Overall similar findings, may have slight increased DDD at L4-5. Ms. Hernandez has L4-5 DDD with small left paracentral disc extrusion on MRI, no significant nerve root compression. She has a longstanding history of back pain worse with standing since childhood, but it hard to know if her current pain is completely related to the L4-5 loss of disc height. She also has some tenderness over the right SI joint. She has not done physical therapy recently, I gave her prescription to try PT with core strengthening, we also talked about trying aquatic physical therapy in the future, acupuncture. Patient has hysterectomy scheduled in the near future for which she described as postmenopausal bleeding, does not have an exact date yet. I asked her to start the PT for now and we can see if her back pain improves with conservative management. We had long discussion regarding possible symptoms from low estrogen (discussed musculoskeletal syndrome of menopause, she also described dry eyes, fatigue, bursitis, anxiety/depression, brain fog and memory issues, vertigo, osteopenia). I told her some of the symptoms could be related, although she has had some for many years, for example was diagnosed with fibromyalgia in her 20s, may not be related to hormone deficiency. She can further discuss this with her PCP or [facility]. Article given to patient regarding this. She also describes symptoms that sound like stress incontinence, I gave her name of pelvic floor physical therapist in [facility]. All questions answered. I asked her to call with any concerns or questions. I will review her MRI with Dr. Leahy when she is back in the office. Rosacea 10/18/2023 Uses hearing aid 10/18/2023 Other insomnia 10/18/2023 Other constipation 10/18/2023 Other hyperlipidemia 10/18/2023 Hypertension 10/18/2023 Genital herpes simplex 10/18/2023 Depression 10/18/2023 Bipolar disease, chronic ([facility] V24, [facility] V 28) 10/18/2023 Cervical high risk HPV (human papillomavirus) te st positive 04/15/2016 Diabetes mellitus ([facility] V24, [facility] V28) Herpes 09/28/2014 Airway hyperreactivity 09/28/2014 Encounters Date Type Department Care Team Description 08/29/[address] [facility] [address] [phone] Aminata Smith PA 07/26/2024 Telephone Adult Medicine [facility] [address] [place] [phone] Eddie Ferrara MD information for Dr Ferrara 07/19/2024 11:00 AM EDT Office Visit Adult Medicine [facility] [address] [place] [phone] Eddie Ferrara MD Other hyperlipidemia (Primary Dx); Type 2 diabetes mellitus with other specified complication, without long-term current use of insulin ([facility] V24, [facility] V28); Other insomnia; Mild intermittent asthma without complication; Hypertension, unspecified type; Class 2 severe obesity due to excess calories with serious comorbidity and body mass index (BMI) of 39.0 to 39.9 in adult ([facility] V24, [facility] V28); SILKE on CPAP; Encounter for screening for malignant neoplasm of colon; Chronic cough 07/04/2024 11:[address] [facility] [address] [phone] Aminata Smith PA Degeneration of intervertebral disc of lumbar region with discogenic back pain and lower extremity pain (Primary Dx) from Last 3 Months Immunizations Name Administration Dates Next Due Hepatitis B (Lvyxcfr-V-Ehkfo , Recombivax HB-Adult) 19yo and older 2020,11/16/2019,10/18/2019,02/22 Hepatitis B Pediatric (Enger ix B; Recombivax HB) to less than 20 yo 08/12/2016 Influenza Quadravalent, vimal mbinant, 0.5ml, preservative free (Flublok) 18yo and older 02/07/2023,02/06/2022,01/10/2021,11/30 Influenza Quadrivalent, 0.5m l, preservative free (Fluarix; FluLaval; Fluzone) ages 6mo and older (Afluria) 3yo and older 12/29/2018,01/17/2018 Influenza Quadrivalent, with preservative (Fluzone; Afluria) 6mo and older 01/03/2018 Influenza trivalent, recombi nant, 0.5mL, preservative free (Flublok) 18yo and older 01/08/2024 Influenza, Unspecified 11/26/2016,12/17/2015,12/2014 MMR, measles mumps and rubel la Live (Priorix; M-M-R II) 12mo and older 04/09/2023,04/21/2019 Animated Dynamics SARS-CoV-2 COVID-19, mRNA, LNP-S, preservative free 01/24/2021,07/01/2020,06/10/2020 Pneumococcal polysaccharide 23 valent (Pneumovax 23) 2yo and older 12/17/2015 Td Tetanus diptheria (Tdvax) 7yo and older 01/04/2007 Tdap Tetanus diptheria acell ular pertussis (Boostrix; Adacel) 7yo and older 01/24/2019 Zoster recombinant (Shingrix ) 19yo and older 09/20/2021,03/15/2021 Surgical History Surgery Date Site/Laterality Comments WISDOM TOOTH EXTRACTION PERIPHERAL ANGIOGRAM FEM-FEM 04/05/2005 - 04/04/2006 TONSILLECTOMY ADENOIDECTOMY, BILATERAL MYRINGOTOMY AND TUBES Medical History Medical History Date Comments Anxiety Sleep apnea Diabetes ([facility] V24, [facility] V28) Hyperlipidemia Asthma Fibromyalgia Depression Rosacea Bipolar disorder ([facility] V24, [facility] V28) IBS (irritable bowel syndrome) Social History Tobacco Use Types Packs/Day Years [...] for your loved ones. For example, child & adolescent psychiatrist or elderly care for an [...] is your living situation? 0 04/17/2024 Comments No Sex and Gender Information Value Date Recorded Sex Assigned at Not on file Legal Sex Female 1:08 PM EST Gender Identity Not on file Sexual Orientation Not on file Obstetrics History Last Filed Vital Signs Vital Sign Reading Time Taken Comments Blood Pressure 126/78 07/19/2024 11:13 AM EDT Pulse 78 07/19/2024 11:13 AM EDT Temperature 36.3 ??C (97.4 ??F) 07/19/2024 11:13 AM E DT Respiratory Rate 16 07/19/2024 11:13 AM EDT Oxygen Saturation 97% 07/19/2024 11:13 AM EDT Inhaled Oxygen Concentration - - Weight 113 kg (250 lb) 07/19/2024 11:13 AM EDT Height 170.2 cm (5' 7 ) 07/19/2024 11:13 AM EDT Body Mass Index 39.16 07/19/2024 11:13 AM EDT Plan of Treatment Upcoming Encounters Date Type Department Care Team (Late st Contact Info) Description 11/21/2024 11:00 AM EDT Office Visit Adult Medicine [facility] [address] [place] [phone] Eddie Ferrara MD [address] [place] [address] Health Maintenance Due Date Last Done Comments Cervical Cancer Screening: Pap Smear 1989 Pneumococcal Vaccine: 50+ Years (2 of 2 - PCV) 12/16/2016 12/17/2015 Pneumococcal Vaccine: Pediatrics (0 to 5 Years) and At-Risk Patients (6 to 64 Years) (2 of 2 - PCV) 12/16/2016 12/17/2015 HIV Screening 03/03/2022 COVID-19 Vaccine (8 - Pfizer risk season) 2024 02/11/2024, 05/04/2023, 03/14/2022, Additional history exists Diabetes: Annual Foot Exam 12/12/2024 12/13/2023 Diabetes: Blood Sugar Control Test (HGBA1C) 01/12/2025 07/13/2024, 03/16/2024, 10/18/2023 Diabetes: Annual Retina Eye Exam 01/19/2025 01/20/2024 Depression Screening 04/17/2025 04/17/2024 Social Influencers of Health Screening 04/17/2025 04/17/2024 Diabetes: Annual Urine Albumin-Creatinine Ratio (uACR) 07/13/2025 07/13/2024, 03/16/2024 Diabetes: Annual GFR (Glomerular Filtration Rate) 07/13/2025 07/13/2024, 03/16/2024, 10/18/2023 Hypertension/CHF/CAD Annual BMP Blood Test 07/13/2025 07/13/2024, 03/16/2024, 10/18/2023 Breast Cancer Screening 06/07/2026 06/07/2024, 04/10 DTaP,Tdap,and Td Vaccines (3 - Td or Tdap) 01/24/2029 01/24/2019, 01/04/2007 Cholesterol Screening (Lipid Panel) 07/13/2029 07/13/2024, 10/18/2023 Colorectal Cancer Screening: Colonoscopy 04/09/2030 04/09/2020 Hepatitis B Vaccines Completed 2020, 11/16/2019, 10/18/2019, Additional history exists Zoster Vaccines Completed 09/20/2021, 03/15/2021 MMR Vaccines Aged Out 04/09/2023, 04/21/2019 No lo nger eligible based on patient's age to complete this topic Influenza Vaccine Completed 01/08/2024, , 02/06/2022, Additional history exists Hepatitis C Screening Completed 03/16/2024 HIB Vaccines Aged Out No longer eligi ble based on patient's age to complete this topic HPV Vaccines Aged Out No longer eligi ble based on patient's age to complete this topic Hepatitis A Vaccines Aged Out No long er eligible based on patient's age to complete this topic IPV Vaccines Aged Out No longer eligi ble based on patient's age to complete this topic Meningococcal ACWY Vaccine Aged Out N o longer eligible based on patient's age to complete this topic Meningococcal B Vaccine Aged Out No l onger eligible based on patient's age to complete this topic RSV Immunization Patients Under 20 months Aged Out No longer eligible based on patient's age to complete this topic Varicella Vaccines Aged Out No longer eligible based on patient's age to complete this topic Procedures Procedure Name Priority Date/Time Associated Diagnosis Comments LIPID PANEL WITH REFLEX TO DIRECT LDL Routine 07/13/2024 7:59 AM EDT Type 2 diabetes mellitus with other specified complication, without long-term current use of insulin (CMS/HCC V24, CMS/HCC V28) MICROALBUMIN CREATININE URINE RATIO Routine 07/13/2024 7:59 AM EDT Type 2 diabetes mellitus with other specified complication, without long-term current use of insulin ([facility] V24, [facility] V28) COMPREHENSIVE METABOLIC PANEL Routine 07/13/2024 7:59 AM EDT Type 2 diabetes mellitus with other specified complication, without long-term current use of insulin ([facility]/HCC V24, [facility] V28) HEMOGLOBIN A1C Routine 07/13/2024 7:59 AM EDT Type 2 diabetes mellitus with other specified complication, without long-term current use of insulin ([facility] V24, [facility] V28) EXTERNAL MAMMOGRAM REPORT 06/07/2024 HEPATITIS C ANTIBODY Routine 03/16/2024 10:02 AM EST Hypertension, unspecified type Diabetes mellitus associated with hormonal etiology (CMS/HCC V24, CMS/HCC V28) Need for hepatitis C screening test Other hyperlipidemia from Last 3 Months or Most Recently Relevant to Health Maintenance Results * (ABNORMAL) Lipid panel with reflex to direct LDL (07/13/2024 7:59 AM EDT) Cholesterol 150 0 - 200 mg/dL LAB CHEMISTRY METHOD 07/13/2024 10:[address] [facility] Triglycerides 164(H) 0 - 150 mg/dL LAB CHEMISTRY METHOD 07/13/2024 10:30 AM [facility] HDL 45 >=40 mg/dL LAB CHEMISTRY METHOD 07/13/2024 10:30 AM [facility] LDL Calculated 72 0 - 100 mg/dL LAB CHEMISTRY METHOD 07/13/2024 10:30 AM [facility] VLDL Cholesterol Darrian 32.8 mg/dL LAB CHEMISTRY METHOD 07/13/2024 10:[address] [facility] Non HDL Chol. (LDL+VLDL) 105 <145 mg/dL LAB CHEMISTRY METHOD 07/13/2024 10:[address] [facility] Chol/HDL Ratio 3.3 0.0 - 4.4 LAB CHEMISTRY METHOD 07/13/2024 10:[address] [facility] Blood Venous blood specimen / Unknown Venipuncture / Unknown 07/13/2024 7:59 AM EDT 07/13/2024 7:59 AM EDT us Eddie Ferrara MD LAB BLOOD ORDERABLES F inal Result Performing Organization Address City/[facility]/ZIP Co de Phone Number [facility] [address] [place] [address], [place] [phone] * Microalbumin creatinine urine ratio (07/13/2024 7:59 AM EDT) Creatinine, Urine 215.0 mg/dL LAB CHEMISTRY METHOD 07/13/2024 10:[address] [facility] Microalb, Ur 14.3 0.0 - 29.0 mg/L LAB CHEMISTRY METHOD 07/13/2024 10:[address] [facility] Microalb/Creat Ratio 7 <30 mg/g creat LAB CHEMISTRY METHOD 07/13/2024 10:[address] [facility] Urine Urine specimen obtained by clean catch procedure / Unknown Non-blood Collection / Unknown 07/13/2024 7:59 AM EDT 07/13/2024 7:59 AM EDT us Eddie Ferrara MD LAB URINE ORDERABLES F inal Result Performing Organization Address City/[facility]/ZIP Co de Phone Number [facility] [address] [place] [address], [place] [phone] * (ABNORMAL) Hemoglobin A1c (07/13/2024 7:59 AM EDT) Hemoglobin A1C 6.7(H) <6.5 % LAB CHEMISTRY METHOD 07/13/2024 11:[address] [facility] Mean Bld Glu Estim. 146 mg/dL LAB CHEMISTRY METHOD 07/13/2024 11:23 AM [facility] Blood Venous blood specimen / Unknown Venipuncture / Unknown 07/13/2024 7:59 AM EDT 07/13/2024 7:59 AM EDT us Eddie Ferrara MD LAB BLOOD ORDERABLES F inal Result [facility] [address] [place] [address], * (ABNORMAL) Comprehensive metabolic panel (07/13/2024 7:59 AM EDT) [facility] Sodium 135 133 - 145 mmol/L LAB CHEMISTRY METHOD 07/13/2024 10:30 AM [facility] Potassium 3.7 3.5 - 5.5 mmol/L LAB CHEMISTRY METHOD 07/13/2024 10:30 AM [facility] Chloride 96 96 - 110 mmol/L LAB CHEMISTRY METHOD 07/13/2024 10:30 AM [facility] CO2 32 21 - 32 mmol/L LAB CHEMISTRY METHOD 07/13/2024 10:30 AM [facility] Anion Gap 7 3 - 11 LAB CHEMISTRY METHOD 07/13/2024 10:30 AM [facility] Glucose 122(H) 70 - 100 mg/dL LAB CHEMISTRY METHOD 07/13/2024 10:30 AM [facility] BUN 12 5 - 25 mg/dL LAB CHEMISTRY METHOD 07/13/2024 10:30 AM [facility] Creatinine 0.71 0.50 - 1.10 mg/dL LAB CHEMISTRY METHOD 07/13/2024 10:30 AM [facility] eGFR 100 >=60 mL/min/1. 73m2 LAB CHEMISTRY METHOD 07/13/2024 10:30 AM [facility] Comment:Calculation based on the??Chronic Kidney Disease Epidemiology Collaboration (CKD-EPI) equation refit??without adjustment for race. BUN/Creatinine Ratio 16.9 LAB CHEMISTRY METHOD 07/13/2024 10:30 AM [facility] Calcium 9.3 8.5 - 10.5 mg/dL LAB CHEMISTRY METHOD 07/13/2024 10:30 AM [facility] AST (SGOT) 15 10 - 42 unit/L LAB CHEMISTRY METHOD 07/13/2024 10:30 AM [facility] ALT (SGPT) 27 10 - 60 unit/L LAB CHEMISTRY METHOD 07/13/2024 10:30 AM [facility] Alkaline Phosphatase 108 42 - 121 unit/L LAB CHEMISTRY METHOD 07/13/2024 10:30 AM [facility] Total Protein 7.1 6.0 - 8.0 g/dL LAB CHEMISTRY METHOD 07/13/2024 10:30 AM [facility] Albumin 4.0 3.2 - 5.0 g/dL LAB CHEMISTRY METHOD 07/13/2024 10:30 AM [facility] Total Bilirubin 0.3 0.0 - 1.4 mg/dL LAB CHEMISTRY METHOD 07/13/2024 10:30 AM [facility] Blood Venous blood specimen / Unknown Venipuncture / Unknown 07/13/2024 7:59 AM EDT 07/13/2024 7:59 AM EDT us Eddie Ferrara MD LAB BLOOD ORDERABLES F inal Result [facility] [address] [place] [address], [place] [phone] * External Mammogram Report (06/07/2024) Anatomical Region Laterality Modality Mammography us Provider [facility] BI PROCEDURES Final Result * Hepatitis C antibody (03/16/2024 10:02 AM EST) Hepatitis C Antibody Negative Negative LAB CHEMISTRY METHOD 03/16/2024 1:[address] [facility] Blood Venous blood specimen / Unknown Venipuncture / Unknown 03/16/2024 10:02 AM EST 03/16/2024 10:02 AM EST Eddie Ferrara MD LAB BLOOD ORDERABLES F inal Result Performing Organization Address City/[facility]/ZIP Co de Phone Number [facility] [address] [place] [address], [place] [phone] from Last 3 Months or Most Recently Relevant to Health Maintenance [place] [address] [employer] Care Teams Science Education Professor Relationship Specialty Start Date End Date Eddie Ferrara MD [address] [place] [address] PCP - General 05/06/23
[2024-09-14 07:58] VITALS: BP 140/90; PULSE 110; O2SAT 98; BMI 39.7
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
== END 2024-09-14 08:27 | disposition home or self-care (01) ==
LOC: HO.HSMS 07:51
PROVIDERS: PCP Family Medicine; Visit Provider Psychiatry & Neurology Neurology
DX: G25.9 Extrapyramidal and movement disorder, unspecified (principal); G47.33 Obstructive sleep apnea (adult) (pediatric)
CPT/HCPCS: 99214; G2211

== ENCOUNTER → 2024-09-14 07:50 | Outpatient (BNVA) | payer OTHER, SELFPAY | PROVIDERS: PCP Family Medicine; Visit Provider Psychiatry & Neurology Neurology ==

== ENCOUNTER 2024-09-22 07:00 | Outpatient (RCR) | payer OTHER, SELFPAY | END 2024-10-13 07:41 | disposition home or self-care (01) | LOC: HO.PTCHIC 07:00 | PROVIDERS: PCP Internal Medicine; Visit Provider Physician Assistant | DX: M51.362 Other intervertebral disc degeneration, lumbar region with discogenic back pain and lower extremity pain (principal) | CPT/HCPCS: 97014; 97110; 97112; 97140; 97162 ==

== ENCOUNTER 2024-12-12 07:45 | Outpatient (AMB) | payer OTHER, SELFPAY ==
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
--- OUTSIDE RECORDS SUMMARY | 2024-12-12 07:49 | XMS_ITS | Clinical Summary ---
Author Organization [address] Address [address] [place] [phone] Phone Care Team Providers Care Automobile Parker Name Role Phone Eddie Ferrara MD Primary [...] (one) time each day if needed. Active cholecalcifero l (VITAMIN D-3) 50 mcg [...] mg 24 hr capsule 12/21/19 15 Active busPIRone (BUSPAR) 5 mg tablet Take [...] complication, without long-term current use of insulin ([facility] V24, [facility] V28) Inject 0.5 mL (0.75 mg total) under the skin every 7 (seven) days. 3 mL 3 04/17/19 25 Active hydroCHLOROthi azide (HYDRODIURIL) 25 mg tablet Take 1 tablet (25 mg total) by mouth 1 (one) time each day. 90 each 04/17/19 25 Active omeprazole (PriLOSEC) 20 [...] each day. 90 each 04/17/19 25 Active lamoTRIgine (LaMICtal) 100 mg tablet Take 1 tablet (100 mg total) by mouth 1 (one) time each day. 05/03/19 25 Active LORazepam (ATIVAN) 0.5 mg tablet TAKE 1 TABLET BY MOUTH EVERY EVENING NEEDED FOR ANXIETY/INSOMN IA. DONT TAKE WITH BUSPAR OR AMBIEN 06/08/19 25 Active triamcinolone (NASACORT) 55 mcg nasal inhaler [...] % drops Administer into affected eye(s). Active metFORMIN (GLUCOPHAGE) 500 mg tablet Take 1 tablet (500 mg total) by mouth 2 (two) times a day with meals. 180 tablet 1 10/17/19 25 Active magnesium oxide (MAG-OX) 400 mg (241.3 elemental magnesium) tablet TAKE 1 TABLET BY MOUTH EVERY DAY 90 tablet 1 12/09/19 25 Active magnesium oxide (MAG-OX) 400 mg (241.3 elemental magnesium) tablet TAKE 1 TABLET BY MOUTH EVERY DAY 90 tablet 1 06/06/19 25 025 Discontinued Active Problems Problem Noted Date [...] She has been going for weekly massages, career transition specialist. Years ago went for physical therapy. She has had multiple lumbar injections: Bilateral L4-5, L5-S1 facet injections December 2019, bursa injections 08/16/2023, bilateral L4-5, L5-S1 facet injections with >70% relief, bilateral L3-5 medial branch block 03/08/2024 with only 30% pain relief. Bilateral hip x-rays February 2023 no acute findings according to [facility]. She was diagnosed with fibromyalgia in her 20s. Patient had lumbar spine MRI 12/27/2023 at [facility] that shows L4-5 loss of disc height [...] further discuss this with her PCP or PLANTING MATERIAL CARRIER. Article given to patient regarding this. She also describes symptoms that sound like stress incontinence, I gave her name of pelvic floor physical therapist in [facility]. All questions answered. I asked her to call with any concerns or questions. I will review her MRI with Dr. Leahy when she is back in the office. Rosacea 10/18/2023 Uses hearing aid 10/18/2023 Other insomnia 10/18/2023 Other constipation 10/18/2023 Other hyperlipidemia 10/18/2023 Hypertension 10/18/2023 Genital herpes simplex 10/18/2023 Depression 10/18/2023 Bipolar disease, chronic ([facility] V24, [facility] V 28) 10/18/2023 Cervical high risk HPV (human papillomavirus) te st positive 04/15/2016 Diabetes mellitus ([facility] V24, [facility] V28) Herpes 09/28/2014 Airway hyperreactivity 09/28/2014 Encounters Date Type Department Care Team Description 11/03/2024 Telephone Walk-In Clinic [facility] [address] [place] [id number] Nasir Walker NP 10/13/2024 10:00 AM EDT Office Visit Walk-In [address] [phone] Nasir Walker NP Lower urinary tract symptoms (LUTS) (Primary Dx); Glucose found in urine on examination 10/12/2024 Telephone Walk-In Clinic [address] [phone] Tyrell Byrnes PA 10/02/2024 9:45 AM EDT Office Visit Walk-In [address] [phone] Tyrell Byrnes PA Symptoms involving urinary system (Primary Dx) from Last 3 Months Immunizations Name Administration Dates Next Due Hepatitis B (Taqgacb-A-Iazmo , Recombivax HB-Adult) 19yo and older 2020,11/16/2019,10/18/2019,02/22 [...] trivalent, recombi nant, 0.5mL, preservative free (Flublok) 9yo and older 01/08/2024 Influenza, Unspecified 11/26/2016,12/17/2015,12/2014 MMR, measles mumps and rubel la Live (Priorix; M-M-R II) 12mo and older 04/09/2023,04/21/2019 Pfizer SARS-CoV-2 COVID-19, mRNA, LNP-S, preservative free [...] History Date Comments Anxiety Sleep apnea Diabetes ([facility] V24, [facility] V28) Hyperlipidemia Asthma Fibromyalgia Depression Rosacea Bipolar disorder ([facility] V24, [facility] V28) IBS (irritable bowel syndrome) Social History [...] care for your loved ones. For example, early childhood lead teacher or elderly care for an older adult? [...] Sign Reading Time Taken Comments Blood Pressure 148/88 10/13/2024 10:00 AM EDT Pulse 86 10/13/2024 10:18 AM EDT Temperature 36.3 C (97.4 F) 10/02/2024 9:49 AM EDT Respiratory Rate 16 07/19/2024 11:13 AM EDT Oxygen Saturation 98% 10/13/2024 10:00 AM EDT Inhaled Oxygen Concentration - - Weight 113 kg (250 lb) 07/19/2024 11:13 AM EDT Height 170.2 cm (5' 7 ) 07/19/2024 11:13 AM EDT Body Mass Index 39.16 07/19/2024 11:13 AM EDT Plan of Treatment Health Maintenance Due Date Last Done Comments Cervical Cancer Screening: Pap Smear 1989 Pneumococcal Vaccine: 50+ Years (2 of 2 - PCV) 12/16/2016 12/17/2015 HIV Screening 03/03/2022 COVID-19 Vaccine (8 - Pfizer risk season) 2024 02/11/2024, 05/04/2023, 03/14/2022, Additional history exists Influenza Vaccine (#1) 2024 , 02/07/2023, 02/06/2022, Additional history exists Diabetes: Annual Foot Exam 12/12/2024 12/13/2023 Diabetes: Blood Sugar Control Test (HGBA1C) 01/12/2025 07/13/2024, 03/16/2024, 10/18/2023 Diabetes: Annual Retina Eye Exam 01/19/2025 01/20/2024 Social Influencers of Health Screening 04/17/2025 04/17/2024 [...] patient's age to complete this topic Hepatitis C Screening Completed 03/16/2024 Depression Screening Completed 04/17/2024 HIB Vaccines Aged Out No longer eligi [...] Procedure Name Priority Date/Time Associated Diagnosis Comments POC GLUCOSE Routine 10/13/2024 2:58 PM EDT Glucose found in urine on examination POC URINE NON-AUTO W/O MICRO Routine 10/13/2024 2:56 PM EDT Lower urinary tract symptoms (LUTS) URINALYSIS MICROSCOPIC ONLY Routine 10/13/2024 10:32 AM EDT Lower urinary tract symptoms (LUTS) URINALYSIS MICROSCOPIC ONLY Routine 10/13/2024 10:32 AM EDT Lower urinary tract symptoms (LUTS) CULTURE URINE Routine 10/13/2024 10:32 AM EDT Lower urinary tract symptoms (LUTS) VAGINITIS PATHOGENS BY PCR Routine 10/13/2024 10:32 AM EDT Lower urinary tract symptoms (LUTS) POC URINE NON-AUTO W/O MICRO Routine 10/02/2024 6:54 PM EDT Symptoms involving urinary system VAGINITIS PATHOGENS BY PCR Routine 10/02/2024 4:06 PM EDT Symptoms involving urinary system URINALYSIS MICROSCOPIC ONLY Routine 10/02/2024 10:15 AM EDT Symptoms involving urinary system URINALYSIS MICROSCOPIC ONLY Routine 10/02/2024 10:15 AM EDT Symptoms involving urinary system CULTURE URINE Routine 10/02/2024 10:15 AM EDT Symptoms involving urinary system MICROALBUMIN CREATININE URINE RATIO Routine 07/13/2024 7:59 AM EDT Type 2 diabetes mellitus with other specified complication, without long-term current use of insulin (CMS/HCC V24, CMS/HCC V28) COMPREHENSIVE METABOLIC PANEL Routine 07/13/2024 7:59 AM EDT Type 2 diabetes mellitus with other specified complication, without long-term current use of insulin (CMS/HCC V24, CMS/HCC V28) HEMOGLOBIN A1C Routine 07/13/2024 7:59 AM EDT Type 2 diabetes mellitus with other specified complication, without long-term current use of insulin (CMS/HCC V24, CMS/HCC V28) LIPID PANEL WITH REFLEX TO DIRECT LDL Routine 07/13/2024 7:59 AM EDT Type 2 diabetes mellitus with other specified complication, without long-term current use of insulin (CMS/HCC V24, CMS/HCC V28) EXTERNAL MAMMOGRAM REPORT 06/07/2024 HEPATITIS C ANTIBODY Routine 03/16/2024 10:02 AM EST Hypertension, unspecified type Diabetes mellitus associated with hormonal etiology (CMS/HCC V24, CMS/HCC V28) Need for hepatitis C screening test Other hyperlipidemia from Last 3 Months or Most Recently Relevant to Health Maintenance Results * (ABNORMAL) POC glucose manually resulted (10/13/2024 2:58 PM EDT) [facility] Glucose POC 357(A) 70 - 100 mg/dL Blood Capillary blood specimen / Unknown 10/13/2024 2:58 PM EDT Nasir Walker NP POINT OF CARE TEST ENTER/EDIT ORDERABLES Final Result * (ABNORMAL) POC Urine Non-Auto W/O Micro (10/13/2024 2:56 PM EDT) Only the most recent of2 resultswithin the time period is included. [facility] GLUCOSE POC 1000(A) Negative, Trace mg/dL Leukocytes UA POC 1+(A) Negative mg/dL Nitrite UA POC Negative Urobilinogen UA POC 0.2 E.U./dL mg/dL Protein UA POC Positive Positive, Negative PH UA POC 6.0 MARGARITA/HM UA POC Trace(A) Negative Specific [place] UA POC <=1.005 Ketones UA POC 1+(A) Negative Bilirubin UA POC Negative Negative Urine Urine specimen obtained by clean catch procedure / Unknown 10/13/2024 2:56 PM EDT Nasir Walker NP POINT OF CARE TEST ENTER/EDIT ORDERABLES Final Result * (ABNORMAL) Urinalysis microscopic only (10/13/2024 10:32 AM EDT) Only the most recent of2 resultswithin the time period is included. [facility] RBC, Urine 3.0 0 - 4 /HPF LAB URINALYSIS - AUTOMATED METHOD 10/13/2024 7:32 PM EDT [facility] WBC, Urine 2.0 0 - 4 /HPF LAB URINALYSIS - AUTOMATED METHOD 10/13/2024 7:32 PM EDT [facility] Squamous Epithelial, Urine 64(H) 0 - 60 /LPF LAB URINALYSIS - AUTOMATED METHOD 10/13/2024 7:32 PM EDT [facility] Bacteria, Urine Many(A) Negative /HPF LAB URINALYSIS - AUTOMATED METHOD 10/13/2024 7:32 PM EDT [facility] Hyaline Casts, Urine 0.8 0 - 3 /LPF LAB URINALYSIS - AUTOMATED METHOD 10/13/2024 7:32 PM EDT [facility] Urine Urine specimen obtained by clean catch procedure / Unknown Non-blood Collection / Unknown 10/13/2024 10:32 AM EDT 10/13/2024 10:32 AM EDT us Nasir Walker NP LAB URINE ORDERABLES Final Re sult [facility] [address] [place] [address], * Vaginitis pathogens molecular study (10/13/2024 10:32 AM EDT) Only the most recent of2 resultswithin the time period is included. Trichomonas vaginalis Negative Negative 10/14/2024 10:51 AM EDT [facility] Gardnerella vaginalis Negative Negative 10/14/2024 10:51 AM EDT [facility] Joseline Species Negative Negative 10:51 AM EDT [facility] Swab Vaginal structure / Unknown Non-blood Collection / Unknown 10/13/2024 10:32 AM EDT 10/13/2024 10:32 AM EDT us Nasir Walker NP LAB MICROBIOLOGY - GENERAL OR DERABLES Final Result [facility] [address] [place] [address], * Culture urine (10/13/2024 10:32 AM EDT) Only the most recent of2 resultswithin the time period is included. Culture, Urine >100,000 CFU/mL Mixed bacterial morphotypes present suggestive of possible contamination during collection. Suggest appropriate recollection if clinically indicated. 10/14/2024 1:22 PM EDT [facility] Urine Urine specimen from urethra / Unknown Non-blood Collection / Unknown 10/13/2024 10:32 AM EDT 10/13/2024 10:32 AM EDT us Nasir Walker NP LAB MICROBIOLOGY - GENERAL OR DERABLES Final Result [facility] [address] [place] [address], [place] [phone] * (ABNORMAL) Lipid panel with reflex to direct LDL (07/13/2024 7:59 AM EDT) Cholesterol 150 0 - 200 mg/dL LAB CHEMISTRY METHOD 07/13/2024 10:30 AM [facility] Triglycerides 164(H) 0 - 150 mg/dL LAB CHEMISTRY METHOD 07/13/2024 10:30 AM [facility] HDL 45 >=40 mg/dL LAB CHEMISTRY METHOD 07/13/2024 10:30 AM [facility] LDL Calculated 72 0 - 100 mg/dL LAB CHEMISTRY METHOD 07/13/2024 10:30 AM [facility] VLDL Cholesterol Darrian 32.8 mg/dL LAB CHEMISTRY METHOD 07/13/2024 10:30 AM [facility] Non HDL Chol. (LDL+VLDL) 105 <145 mg/dL LAB CHEMISTRY METHOD 07/13/2024 10:30 AM [facility] Chol/HDL Ratio 3.3 0.0 - 4.4 LAB CHEMISTRY METHOD 07/13/2024 10:30 AM [facility] Blood Venous blood specimen / Unknown Venipuncture / Unknown 07/13/2024 7:59 AM EDT 07/13/2024 7:59 AM EDT us Eddie Ferrara MD LAB BLOOD ORDERABLES F inal Result [facility] [address] [place] [address], [place] [phone] * Microalbumin creatinine urine ratio (07/13/2024 7:59 AM EDT) Creatinine, Urine 215.0 mg/dL LAB CHEMISTRY METHOD 07/13/2024 10:58 AM EDT [facility] Microalb, Ur 14.3 0.0 - 29.0 mg/L LAB CHEMISTRY METHOD 07/13/2024 10:58 AM EDT [facility] Microalb/Creat Ratio 7 <30 mg/g creat LAB CHEMISTRY METHOD 07/13/2024 10:58 AM EDT [facility] Urine Urine specimen obtained by clean catch procedure / Unknown Non-blood Collection / Unknown 07/13/2024 7:59 AM EDT 07/13/2024 7:59 AM EDT Eddie Ferrara MD LAB URINE ORDERABLES F inal Result [facility] [address] [place] [address], [place] [phone] * (ABNORMAL) Hemoglobin A1c (07/13/2024 7:59 AM EDT) Hemoglobin A1C 6.7(H) <6.5 % LAB CHEMISTRY METHOD 07/13/2024 11:23 AM EDT [facility] Mean Bld Glu Estim. 146 mg/dL LAB CHEMISTRY METHOD 07/13/2024 11:23 AM EDT [facility] Blood Venous blood specimen / Unknown Venipuncture / Unknown 07/13/2024 7:59 AM EDT 07/13/2024 7:59 AM EDT us Eddie Ferrara MD LAB BLOOD ORDERABLES F inal Result [facility] [address] [place] [address], [place] [phone] * (ABNORMAL) Comprehensive metabolic panel (07/13/2024 7:59 AM EDT) Sodium 135 133 - 145 mmol/L LAB CHEMISTRY METHOD 07/13/2024 10:30 AM [facility] Potassium 3.7 3.5 - 5.5 mmol/L LAB CHEMISTRY METHOD 07/13/2024 10:30 AM [facility] Chloride 96 96 - 110 mmol/L LAB CHEMISTRY METHOD 07/13/2024 10:30 AM [facility] CO2 32 21 - 32 mmol/L LAB CHEMISTRY METHOD 07/13/2024 10:30 AM [facility] Anion Gap 7 3 - 11 LAB CHEMISTRY METHOD 07/13/2024 10:30 AM [facility] Glucose 122(H) 70 - 100 mg/dL LAB CHEMISTRY METHOD 07/13/2024 10:30 AM [facility] BUN 12 5 - 25 mg/dL LAB CHEMISTRY METHOD 07/13/2024 10:30 AM [facility] Creatinine 0.71 0.50 - 1.10 mg/dL LAB CHEMISTRY METHOD 07/13/2024 10:30 AM [facility] eGFR 100 >=60 mL/min/1. 73m2 LAB CHEMISTRY METHOD 07/13/2024 10:30 AM [facility] Comment:Calculation based on the Chronic Kidney Disease Epidemiology Collaboration (CKD-EPI) equation refit without adjustment for race. BUN/Creatinine Ratio 16.9 LAB CHEMISTRY METHOD 07/13/2024 10:30 AM [facility] Calcium 9.3 8.5 - 10.5 mg/dL LAB CHEMISTRY METHOD 07/13/2024 10:30 AM [facility] AST (SGOT) 15 10 - 42 unit/L LAB CHEMISTRY METHOD 07/13/2024 10:30 AM [facility] ALT (SGPT) 27 10 - 60 unit/L LAB CHEMISTRY METHOD 07/13/2024 10:30 AM [facility] Alkaline Phosphatase 108 42 - 121 unit/L LAB CHEMISTRY METHOD [facility] Total Protein 7.1 6.0 - 8.0 g/dL LAB CHEMISTRY METHOD 07/13/2024 10:30 AM [facility] Albumin 4.0 3.2 - 5.0 g/dL LAB CHEMISTRY METHOD 07/13/2024 10:30 AM [facility] Total Bilirubin 0.3 0.0 - 1.4 mg/dL LAB CHEMISTRY METHOD 07/13[facility]2024 10[facility] Blood Venous blood specimen / Unknown Venipuncture / Unknown 07/13/2024 7:59 AM EDT 07/13/2024 7:59 AM EDT Eddie Ferrara MD LAB BLOOD ORDERABLES F inal Result [facility] [address] [place] [address], * External Mammogram Report (06/07/2024) Anatomical Region Laterality Modality Mammography us Provider [facility] BI PROCEDURES Final Result * Hepatitis C antibody (03/16/2024 10:02 AM EST) Hepatitis C Antibody Negative Negative LAB CHEMISTRY METHOD 03/16/2024 1:48 PM EST [facility] Blood Venous blood specimen / Unknown Venipuncture / Unknown 03/16/2024 10:02 AM EST 03/16/2024 10:02 AM EST Eddie Ferrara MD LAB BLOOD ORDERABLES F inal Result [facility] [address] [place] [address], from Last 3 Months or Most Recently Relevant to Health Maintenance Insurance [employer] Care Teams Automobile Parker Relationship Specialty Start Date End Date Eddie Ferrara MD [address] [place] [address], [place] PCP - General 05/06/23
--- OUTSIDE RECORDS SUMMARY | 2024-12-12 07:49 | XMS_ITS | Clinical Summary ---
Author Organization [facility] Address [address] [place] [address] Care Team Providers Care Collector Of Aquarium Specimens Name Role Phone Unavailable Primary Care Provider [...] at bedtime. 0 Active Ergocalciferol (VITAMIN D) 14328 UNITS CAPS 0 12/18/2014 Active hydrochlorothiazide (HYDRODIURIL) [...] 04/15/2019 04/15/2016, 04/15/2016, 10/02/2014 Influenza Vaccine (#1) 2024 RSV Ped < 20 months Aged Out No longe r eligible based on patient's age to complete this topic [facility] Self 1970 [address] [place] [address]
--- OUTSIDE RECORDS SUMMARY | 2024-12-12 07:49 | XMS_ITS | Clinical Summary ---
Author Organization [facility] Address [address] [place] [address] Care Team Providers Care Pick Out Hand Name Role Phone Markus Dennis APRN Primary Care Provider [phone] Markus Dennis APRN Unavailable [phone] Allergies Active Allergy Reactions Criticality Noted Date [...] Vitamin D, Ergocalciferol, (VITAMIN D-2) 1.25 MG (98467 UT) capsule TAKE ONE CAPSULE BY MOUTH [...] Active -Hx Entry 0 0 7 Active Freer 3 (FISH OIL) 1200 MG Cap Freer 3 (1200MG Oral daily) Active -Hx Entry [...] Impaired fasting glucose 09/17/2009 Fibromyalgia 09/17/2009 Immunizations Immunization Administration Dates Next Due COVID-19, mRNA (Pfizer Pre F 2022) Monovalent, 30 mcg/0.3 ml 01/24/2021,07/01/2020,06/10/2020 Covid-19, mRNA (Pfizer Pre F 2022) Bivalent, 30 mcg/0.3 ml faustina-sucrose (12+) dose 03/14/2022 Covid-19, mRNA (Pfizer Pre F 2022) Monovalent, 30 mcg/0.3 ml faustina-sucrose (12+) 07/19/2021 Hep B (adult) 2020, 0,10/18/2019,2015 Hep B (pedi) 08/12/2016 Influenza (SEASONAL) - 11/26/2016,12/17/2015,12/2014 Influenza,injectable,quad,Prsrv Fr 12/29/2018, Influenza,recombinant,quad,i njectable ,Prsrv Fr 02/07/2023,02/06/2022,01/10/2021,2019 MMR 04/09/2023,04/21/2019 PPV23 (Pneumovax) 12/17/2015 Td (adult), [...] 89 12/31/2016 10:58 AM EDT Temperature 36.6 C (97.8 F) 12/31/2016 10:58 AM EDT Respiratory Rate 16 12/31/2016 10:5 [...] 09/02/2016, 08/03, 05/25/2013 COVID-19 Vaccine ( season) 2024 03/14/2022, 07/19/2021, 01/24/2021, Additional history exists Influenza (#1) 2024 02/07/2023, 07/2021, 01/10/2021, Additional history exists DTaP/Tdap/Td (2 - Td or Tdap) 01/24/2029 01/24/2019, 01/04/2007 Hep B Completed 2020, 11/03, 10/18/2019, Additional history exists Zoster (Shingrix) Completed 09/20/2021, 03/15/2021 HPV Vaccine (No Doses Required) Completed Hep A Aged Out No longer eligi [...] PM EDT FASTING: YES Testing Performed at: [facility], [address] [place] [address], [place] [address], , Grove Superintendent: Tabby Hewitt MD CLPOL#[id number] us Markus Dennis APRN LABORATORY Final Resu lt PHCT CONVERSIONS * (ABNORMAL) COMPREHENSIVE METABOLIC PANEL (11/11/2016 8:51 AM EDT) Glucose 133(H) 65 - 99 mg/dL [facility] Comment:Fasting Reference In terval Urea Nitrogen Blood (BUN) 9 6 - 20 mg/dL [facility] Creatinine 0.7 0.4 - 1.1 mg/dL [facility] GFR 89 >=60 [facility] Comment: Units of measure for estimated Glomular Filtration Rate: mL/min/1.73m2. If patient is , multiply reported result by 1.21 eGFR calculation is only valid for adults 18-85 years of age. Stages of Chronic Kidney Disease Stage GFR 3 30-59 4 15-29 5 <15 Sodium 136 133 - 145 mmol/L [...] PM EDT FASTING: YES Testing Performed at: [facility], [address] [place] [address], , Grove Superintendent: Tabby Hewitt MD CLPOL#[id number] us Markus Dennis APRN LABORATORY Final Resu lt Performing Organization Address [facility]/ZIP Co de Phone Number PHCT CONVERSIONS * COMPREHENSIVE EYE EXAM (09/02/2016 1:33 PM EDT) DILATED RETINAL EXAM Without Retinopathy PHCT CONVERSIONS 09/02/2016 1:33 PM EDT us Markus STONER MINOR PROCEDURE Final Resu lt Performing Organization Address City/[facility]/ZIP Co de Phone Number PHCT CONVERSIONS * SCREENING MAMMOGRAPHY BILATERAL, 2 VIEWS EACH BREAST, INCLUDING CAD (04/10/2016 3:58 PM EST) Narrative 04/10/2016 3:58 PM EST Ordered by an unspecified provider. us Unknown Provider GENERAL IMAGING- OTHER Final Re sult from Last 3 Months or Most Recently Relevant to Health Maintenance Care Teams Pick Out Hand Relationship Specialty Start Date End Date Markus Dennis APRN BC [address] [place], [place] [id number] PCP - General 11/09/22 Markus Dennis APRN [address] [place], [place] [address]demetria [place] [address] PCP - Backup PCP Family Medicine 05/06/23
== END 2024-12-12 08:27 | disposition home or self-care (01) ==
LOC: HO.HWS 07:45
PROVIDERS: PCP Family Medicine; Visit Provider Obstetrics & Gynecology
DX: N95.0 Postmenopausal bleeding (principal)
CPT/HCPCS: 99213